=== PATIENT | female | born 1960 | race Caucasian/White ===

== ENCOUNTER 2023-06-10 10:24 | Outpatient (OUT) | payer OTHER, SELFPAY ==
--- NOTE | 2023-06-10 10:30 | CA_ITS ---
[facility] Test Date: 2023-06-20 Pat Name: AMBER JAUREGUI Department: Room: - Gender: Female Receiving [employer] C[employer]ian: : 1960 Requested By: THOMAS PIÑA Order Number: [id number] Reading MD: AFSHAN BARNES Interpretive Statements Predominant rhythm is sinus with average rate of 82 bpm Tachycardia (17% burden) - max rate of 191 bpm (PSVT) - 17 episodes of PSVT w/ fastest rate of 191 bpm and longest duration of 17 beats - longest episode of 3h 1min 4sec with rates between 112-141 bpm Bradycardia - min rate of 37 bpm - longest episode of 44min 55sec with rates between 50-57 bpm Ventricular ectopy - 17,865 total, 5% burden - 142 couplets - 17,717 PVC - 1 episode of bigeminy NSVT - 2 episodes of 3 beat VT Patient triggered events: 2 - not associated with symptoms - associated with sinus tachycardia, PVC, PAC with rates of 144 and 131 bpm Impression: Predominant rhythm is sinus with average rate of 82 bpm Fastest rate of 191 bpm (PSVT) and slowest rate of 37 bpm 17% tachycardia burden overall 17,717 PVC, 142 couplets, 1 bigeminy 2 episodes of 3 beat VT No atrial fibrillation No pauses or blocks Electronically Signed On 06-21-2023 7:11:07 EDT by AFSHAN BARNES
== END 2023-06-10 10:25 | disposition home or self-care (01) ==
LOC: CARD 10:25
PROVIDERS: PCP Family Medicine; Visit Provider Family Medicine
DX: R00.2 Palpitations (principal); R55 Syncope and collapse
CPT/HCPCS: 93242

== ENCOUNTER 2023-08-19 11:24 | Outpatient (OUT) | payer OTHER, SELFPAY ==
[2023-08-19 11:45] LABS: Basophils Absolute Auto 0.1 10^3/uL (0.0-0.1); Basophils Percent Auto 0.7 % (0.2-2.0); Eosinophils Absolute Auto 0.1 10^3/uL (0.0-0.7); Eosinophils Percent Auto 1.8 % (0.9-7.0); Hematocrit 40.2 % (36.0-48.0); Hemoglobin 13.2 g/dL (12.0-16.0); Immature Granulocytes Abs Auto 0.01 10^3/uL (0.00-0.03); Immature Granulocytes Pct Auto 0.1 % (0.0-0.5); Lymphocytes Absolute Auto 1.8 10^3/uL (1.2-3.8); Lymphocytes Percent Auto 26.3 % (20.5-60.0); Mean Corpuscular HGB Conc 32.8 g/dL (29.9-35.2); Mean Corpuscular Volume 97.3 fL (81.0-99.0); Mean Platelet Volume 11.2 fL (9.5-13.5); Monocytes Absolute Auto 0.6 10^3/uL (0.3-0.8); Monocytes Percent Auto 9.2 % (1.7-12.0); Neutrophils Absolute Auto 4.2 10^3/uL (1.4-6.5); Neutrophils Percent Auto 61.9 % (43.0-75.0); Platelet Count 285 10^3/uL (150-450); Red Blood Count 4.13 10^6/uL (4.20-5.40); Red Cell Distribution Width 14.1 % (11.0-15.0); White Blood Count 6.7 10^3/uL (4.0-11.0)
[2023-08-19 13:04] LABS: Alanine Aminotransferase 31 U/L (14-59); Albumin Level 3.7 g/dL (3.4-5.0); Alkaline Phosphatase 115 U/L (46-116); Anion Gap 14.1; Aspartate Amino Transferase 18 U/L (15-37); BUN Creatinine Ratio 19.4; Bilirubin Total 0.8 mg/dL (0.2-1.0); Calcium 8.9 mg/dL (8.5-10.1); Carbon Dioxide 25.4 mmol/L (21.0-32.0); Chloride 106 mmol/L (98-107); Estimated GFR (African America >60 (>=60); Estimated GFR (Non-African Ame >60 (>=60); Globulin 3.6 g/dL; Glucose 101 mg/dL (74-106); Potassium 4.5 mmol/L (3.5-5.1); Sodium 141 mmol/L (136-145); Total Protein 7.3 g/dL (6.4-8.2)
== END 2023-08-19 11:25 | disposition home or self-care (01) ==
PROVIDERS: PCP Family Medicine; Visit Provider Internal Medicine Interventional Cardiology
DX: I49.3 Ventricular premature depolarization (principal)
CPT/HCPCS: 36415; 80053; 85025

== ENCOUNTER 2023-09-23 07:59 | Outpatient (OUT) | payer OTHER, SELFPAY ==
--- NOTE | 2023-09-23 08:00 | CA_ITS ---
Patient Name: AMBER JAUREGUI MR#: [id number] : 1960 Exam Date: 09/23/2023 Ordering Doctor: DR SHY ACEVES M.D. ECHOCARDIOGRAM REPORT PROCEDURE: CA ECHO DOPPLER COMPLETE INDICATIONS: Palpitations COMPARISON: None. DESCRIPTION: COMPLETE ECHOCARDIOGRAM Real-time transthoracic echocardiography with 2D, M-mode, spectral and color flow Doppler performed. QUALITY: Technical quality was good. LEFT VENTRICLE: Normal chamber size. Borderline left ventricular hypertrophy. LV EF: Global left ventricular systolic function is normal; visually estimated ejection fraction is 55 to 60%. No obvious wall motion abnormalities. DIASTOLIC: Normal diastolic function. ATRIAL SEPTUM: Visually appears intact. LEFT ATRIUM: Normal chamber size. RIGHT ATRIUM: Normal chamber size. RIGHT VENTRICLE: Normal chamber size. Normal right ventricular systolic function. TRICUSPID VALVE: Normal mobility and thickness. No stenosis with mild regurgitation. Doppler studies reveal mildly (35-45) elevated right sided pressures. RVSP 42 mmHg MITRAL VALVE: Normal mobility and thickness. No evidence of mitral valve stenosis. There is no mitral annular calcification. Trivial mitral regurgitation. AORTIC VALVE: Normal trileaflet appearance. No visible sclerosis. Normal leaflet mobility. No evidence of aortic valve stenosis. No aortic regurgitation. AORTIC ROOT: Normal diameter and appearance. Ascending aorta is normal in size. PULMONIC VALVE: Normal thickness and mobility. No stenosis. Trivial regurgitation. PERICARDIUM: Anterior free space; trivial effusion versus fat pad. IVC: IVC is dilated (2.2 cm) with no collapse. CONCLUSION: 1. Global left ventricular systolic function is normal; visually estimated ejection fraction is 55 to 60% 2. Normal right ventricular size and systolic function 3. Borderline left ventricular hypertrophy 4. Normal diastolic function 5. Mild tricuspid regurgitation 6. Mildly elevated right ventricular systolic pressure; RVSP 42 mmHg 7. Anterior free space; trivial effusion versus fat pad Adult Echocardiography Procedure Report Left Ventricle LVEDD (3.7 - 5.6 cm): 4.48 cm LVESD (2.2 - 4.0 cm): 2.98 cm LVIVS thickness (0.6 - 1.2 cm): 1.11 cm LVPW thickness (0.5 - 1.0 cm): 1.01 cm e': 0.07 m/s E - e': 10.71 LVOT Max Gradient: 2.87 mm[Hg] LVOT Area (cm2): 0.85 m/s Peak Velocity (LVOT): 0.85 m/s Mean Velocity (LVOT): 0.59 m/s LVOT Diameter 2.04 cm Left Atrium LA Volume Index (2D A2C): 32.44 ml/m2 Left Atrium Systolic Dimension: 3.18 cm Mitral Valve MV E to A Ratio: 0.75 Mitral Valve A-Wave Peak Velocity: 0.95 m/s Mitral Valve E-Wave Peak Velocity: 0.71 m/s Right Ventricle Aorta AO Root Diam: 3.43 cm Ascending Ao Diam: 2.98 cm Aortic Valve AoV Area (Peak Michael): 2.27 cm2, 2.27 cm2 AoV Area (VTI): 2.33 cm2, 2.33 cm2 Peak Velocity(Antegrade Flow): 1.21 m/s Peak Gradient(Antegrade Flow): 5.90 mm[Hg] Mean Velocity(Antegrade Flow): 0.85 m/s Mean Gradient(Antegrade Flow): 3.19 mm[Hg] Velocity Time Integral: 29.01 cm Tricuspid Valve Peak Velocity (Regurgitant Flow): 2.59 m/s Pulmonic Valve Mean Gradient: 2.45 mm[Hg] Mean Velocity: 0.72 m/s Peak Velocity: 1.05 m/s, 0.99 m/s Peak Gradient: 4.38 mm[Hg], 3.89 mm[Hg] Right Atrium Right Atrium Systolic Pressure: 36.48 ml, 36.48 ml Dictated by: Shy Aceves M.D. on 09/23/2023 at 15:37 Approved by: Shy Aceves M.D. on 09/23/2023 at 15:42
--- OUTSIDE RECORDS SUMMARY | 2023-09-23 08:03 | XMS_ITS ---
Patient Summarization (C-CDA 2.1 CCD) Created on: September 23, 2023 RATNA BAZAN : 1960 Sex: Female Author Organization Sample organization Care Team Providers Care Specialist Icu Name Role Phone Yvette Velez Attending Provider [phone] Hiral Pearl Unavailable NO FAMILY, PHYSICIAN Primary Care Provider Unava ilCIERRA Ly Attending Provider [phone] Hiral Pearl Attending Unavailable Hiral Pearl Admitting Unavailable NO FAMILY, PHYSICIAN Primary Care Unavailable HEMEYER ., DR GUZMAN Primary Care Unavailable HEMEYER ., DR GUZMAN Admitting Unavailable HEMEYER ., DR GUZMAN Attending Unavailable HEMEYER ., DR GUZMAN Consulting Unavailable ZIEBER, DR TIGRE Andrade Consulting Unavailable HEMEYER ., DR GUZMAN Admitting Unavailable HEMEYER ., DR GUZMAN Attending Unavailable HEMEYER ., DR GUZMAN Consulting Unavailable HEMEYER ., DR GUZMAN Primary Care Unavailable THOMAS PIÑA Attending Unavailable THOMAS PIÑA Attending Unavailable SHY SANDHU Attending Unavailable Unavailable Unavailable Unavailable Allergies Allergy Classification Reported Allergen(s) Allergy Type Date of Onset Reaction(s) Facility (2 sources) Acetaminophen / HYDROcodone; Translations: [Vicodin] Drug Allergy shortness of breath [facility] (1 source) Acetaminophen / oxyCODONE Drug Allergy shortness of breath [facility] Other (1 source) Sulf-10 Drug allergy rash difficult breathing [facility] [employer] Other (2 sources) Darvocet-N 100; Translations: [Darvocet-N 100] Drug allergy 01-29-20 13 shortness of breath [facility] (1 source) Acetaminophen / oxyCODONE Drug Allergy 01-29-20 13 [facility] (1 source) bee venom Drug allergy (disorder) 05-08-19 18 [facility] (2 sources) Codeine; Translations: [CODEINE] Drug Allergy 02-02-20 16 [facility] (1 source) HYDROcodone Drug Allergy 11-29-19 17 [facility] (1 source) iodoform Drug Allergy 01-29-20 15 [facility] (2 sources) metFORMIN; Translations: [METFORMIN] Drug Allergy 08-21-19 23 [facility] (1 source) Sulfonamides (Antibiotic) Drug allergy (disorder) 01-29-20 13 [facility] (1 source) traMADol Drug Allergy 09-30-19 20 [facility] (1 source) Acetaminophen / HYDROcodone; Translations: [HYDROCODONE-ACET AMINOPHEN] Drug Allergy 08-21-19 [facility] Repository (1 source) Acetaminophen / oxyCODONE; Translations: [OXYCODONE-ACETAM INOPHEN] Drug Allergy 08-21-19 [facility] (1 source) Propoxyphene; Translations: [PROPOXYPHENE] Drug Allergy 08-21-19 [facility] (1 source) Sulfonamides (Antibiotic); Translations: [SULFA (SULFONAMIDE ANTIBIOTICS)] Propensity to adverse reactions to drug (disorder) 08-21-19 [facility] (1 source) BEE VENOM PROTEIN (HONEY BEE); Translations: [BEE VENOM PROTEIN (HONEY BEE)] Propensity to adverse reactions to drug (disorder) 08-21-19 [facility] Encounters Encounter Date Encounter Type Care Provider Facility Start: 08-19-2023 End: 08-19-2023 ambulatory [facility] Start: 08-07-2023 End: 08-07-2023 ambulatory THOMAS PIÑA Not Available Start: 05-28-2023 End: 05-28-2023 ambulatory THOMAS PIÑA Not Available Start: 07-16-2022 End: 07-17-[address] THOMAS PIÑA . Facility:[facility] Start: 05-08-2022 End: 05-09-[address] THOMAS PIÑA . Facility:[facility] Start: 01-12-2022 End: 01-12-2022 Patient encounter procedure PHYSICIAN NO FAMILY [facility] Start: 01-12-2022 End: 01-12-2022 ambulatory PHYSICIAN [facility] Work Phone: Start: 01-12-2022 Office outpatient vi sit 15 minutes Hiral Ryanne [facility] Start: 04-02-2020 End: 04-02-2020 Patient encounter procedure Yvette Velez [facility] Goals Date Patient Goal Desired Activity /State Medications Current Medications Medication Drug Class(es) Dates Sig (Normalized) Sig (Original) amLODIPine Benzoate (1 source) amLODIPine Benzoate Active atorvastatin (1 source) HMG-CoA Reductase Inhibitor Atorvastatin Calcium Active liothyronine (1 source) l-Triiodothyronine Liothyronine Sodium Active losartan potassium 100 mg oral tablet (1 source) Angiotensin 2 Receptor Jack take 1 tablet by mouth every twenty-four hours Losartan Potassium 100 MG 1 tablet Orally Once a day for 30 day(s) Active metoprolol tartrate 50 mg oral tablet (1 source) beta-Adrenergic Jack take 1 tablet by mouth every twelve hours Metoprolol Tartrate 50 MG 1 tablet Orally Twice a day for 30 day(s) Active Post-OP Shoe/Soft Top Women - (1 source) Start: 01-12-2022 Post-OP Shoe/Soft Top Women - as directed diagnosis: contusion right foot Dec, Active Payers Date Payer Category Payer Self-pay [id number] 2022 Unknown [id number] 2.16. [id number] 1960 Unknown [id number] 2.16.84 [id number] 1960 Unknown [id number] 2.16.84 [id number] 1960 Unknown [id number] 2.16.84 [id number] 1960 Unknown [id number] 2.16.84 [id number] 1960 Unknown [id number] Unknown [id number] 2.16.8 [id number] Problems Problem Classification Problem Date Documented Da te Episodic/Chronic Cardiac dysrhythmias (2 sources) Palpitations; Translations: [Palpitations] Onset: 08-19-2023 Episodic Malaise and fatigue (1 source) Chronic fatigue, unspecified; Translations: [CHRONIC FATIGUE UNSPECIFIED] Onset: 05-12-2022 Chronic Other connective tissue disease (1 source) Pain in right foot Episodic Other screening for suspected conditions (not mental disorders or infectious disease) (4 sources) Encounter for screening mammogram for malignant neoplasm of breast; Translations: [ENC SCR MAMMO MALIG NEOPLASM BREAST] Onset: 07-16-2022 Episodic Residual codes; unclassified (1 source) Family history of malignant neoplasm of breast; Translations: [FAMILY HX MALIG NEOPLASM OF BREAST] Onset: 07-19-2022 Episodic Superficial injury; contusion (1 source) Contusion of right foot, initial encounter Episodic Thyroid disorders (4 sources) Sick-euthyroid syndrome; Translations: [SICK-EUTHYROID SYNDROME] Onset: 05-08-2022 Episodic Unclassified (1 source) Pain in right foot; Translations: [Pain in right foot] Onset: 01-12-2022 Procedures Date Procedure Procedure Detail Performing Clinician Start: 01-12-2022 X-ray of right foot PHY SICIAN NO FAMILY Start: 04-02-2020 X-ray of left elbow, three or more views Yvette Velez Results Test Name Value Interpretation Reference Range Facil ity Office Visiton 08-19-2023 Follow-up visit [id number] Ratna Bazan 1960 F Date Provider Department Center 08/19/2023 Chuy-SHY SANDHU Family History Problem Relation Age of Onset Atrial fibrillation Father Other Father Heart failure Father Other Father Family Status - Relation Status Age at Father Level of Service:22455 MA OFFICE/OUTPATIENT NEW MODERATE MDM 45 MINUTES Normal [facility] Orders Onlyon 08-19-2023 Orders Only [id number] Ratna Bazan 1960 F Date Provider Department Center 08/19/2023 FabioDAR SMITH [facility] Family History Problem Relation Age of Onset Atrial fibrillation Father Other Father Heart failure Father Other Father Family Status - Relation Status Age at Father Normal [facility] MG MAMM SCREEN 3D LUCIEN CADon 07-16-2022 MG MAMM SCREEN 3D LUCIEN CAD Patient: RATNA BAZAN. Exam Date: 07/16/2022 : 1960 Gender:F Ordering : DR THOMAS PIÑA . Admission #: [id number] Family : Order #: [id number] CLICK HERE TO VIEW EXAM RADIOLOGY REPORT PROCEDURE: MAMMOGRAM SCREENING 3D BILATERAL CAD COMPARISON: MG MAMM SCREEN 3D LUCIEN CAD, 06/14/2021. MG MAMM SCREEN 3D LUCIEN CAD, 03/24/2019. MG MAMM SCREEN 3D LUCIEN CAD, 12/18/2017. DIGITIZED_MAMMO, 07/15/2002. INDICATIONS: Screening mammography Calculator Name NCI Breast Cancer Risk Assessment Tool 5 Year Breast Cancer Risk 1.70% Lifetime Breast Cancer Risk 7.70% Personal Breast Cancer No Personal Ovarian Cancer No Treatments None Family Cancers Grandmother-maternal with breast cancer at age 50. LOCATION: [facility] BREAST COMPOSITION: Scattered areas fibroglandular density. FINDINGS: DIAGNOSTIC CATEGORY 1--NEGATIVE. RIGHT BREAST: No significant suspicious finding. No significant change has occurred. LEFT BREAST: No significant suspicious finding. No significant change has occurred. RECOMMENDATIONS: ROUTINE MAMMOGRAM AND CLINICAL EVALUATION IN 12 MONTHS. PLEASE NOTE: A NORMAL MAMMOGRAM DOES NOT EXCLUDE THE POSSIBILITY OF BREAST CANCER. A CLINICALLY SUSPICIOUS PALPABLE LUMP SHOULD BE BIOPSIED. Dictated by: Tigre Muñoz M.D. on 07/16/2022 at 12:51 Approved by: Tigre Muñoz M.D. on 07/16/2022 at 12:58 Normal [facility] REVERSE T3on 05-13-2022 Reverse T3, Serum 15.9 ng/dL Normal 9.2-24.1 [facility] Comment on above: Result Comment: This test was developed and its performance characteristics determined by [facility]. It has not been cleared or approved by the Food and Drug Administration. Performed By: #### R [id number] #### [facility] [address] [address] [address] Eva Hurt T3, TOTAL (TRIIODOTHYRONINE) on 05-09-2022 T3, TOTAL 139 ng/dL Normal 71-180 [facility] Comment on above: Performed By: #### [id number] #### [facility] [address] [place] [address] Dr. Eav Hurt FREE T3on 05-08-2022 FREE T3 3.14 pg/mlL Normal 2.18-3.98 [facility] Comment on above: Performed By: #### TSH, FT3 #### [facility] [address] [place] [address] Dr. Eva Hurt FREE T4on 05-08-2022 Free T4 [Mass/Vol] 0.97 ng/dL Normal 0.76-1.46 [facility] Comment on above: Performed By: #### FT4 #### [facility] [address] [place] [address] Dr. Eva Hurt TSHon 05-08-2022 TSH 1.881 uIU/mL Normal 0.358-3.740 [facility] Comment on above: Performed By: #### TSH, FT3 #### [facility] [address] [place] [address] Dr. Eva Hurt XR foot RT min 3V*on 022 XR foot RT min 3V* [facility] [place] [address] XRay Report Signed Patient: Ratna Bazan MR#: [id number] : 1960 Acct:[id number] Age/Sex: 61 / F ADM Date: 01/12/22 Loc: XDUCLY Room: Type: [facility] Attending Dr: Hiral NORTON Copies to: CIERRA Buck Ordering Provider: CIERRA Buck Date of Service: 01/12/22 XR/XR foot RT min 3V*: RIGHT FOOT PAIN RIGHT FOOT - 3 views CLINICAL HISTORY: Pain and bruising after injury today. COMPARISON: None FINDINGS: No focal soft tissue abnormality. No acute bony process is seen. XR/XR foot RT min 3V* IMPRESSION: NO ACUTE BONY PROCESS. Impression dictated by: Fabian De Jr., D.O.01/12/2022 5:26 PM Dictation Location: [place] [address] Transcribed By: [facility] 01/12/22 172 Dictated By: Fabian De Jr, DO 01/12/22 172 Signed By: 01/12/22 172 Normal [facility] XR foot RT min 3V* [facility] [employer] Other XR foot RT min 3V* [facility] [employer] Other XR foot RT min 3V* [address] [place] [address] [facility] Other XR foot RT min 3V* [place] [address] [facility] Other XR foot RT min 3V* XRay Report [facility] Other XR foot RT min 3V* Signed [facility] Other XR foot RT min 3V* Patient: Ratna Bazan MR#: [id number] [facility] Other XR foot RT min 3V* 4698 [facility] Other XR foot RT min 3V* : 1960 Acct:[id number] [facility] Other XR foot RT min 3V* Age/Sex: 61 / F ADM Date: 01/12/22 [facility] Other XR foot RT min 3V* Loc: XDUCLY Room: Type: [facility] Other XR foot RT min 3V* Attending Dr: Hiral NORTON [facility] Other XR foot RT min 3V* Copies to: CIERRA Buck [facility] Other XR foot RT min 3V* Ordering Provider: CIERRA Buck [facility] Other XR foot RT min 3V* Date of Service: 01/12/22 [facility] Other XR foot RT min 3V* XR/XR foot RT min 3V*: RIGHT FOOT PAIN [facility] Other XR foot RT min 3V* RIGHT FOOT - 3 views [facility] Other XR foot RT min 3V* CLINICAL HISTORY: Pain and bruising after injury today. [facility] Other XR foot RT min 3V* COMPARISON: None [facility] Other XR foot RT min 3V* FINDINGS: [facility] Other XR foot RT min 3V* No focal soft tissue abnormality. No acute bony process is seen. [facility] Other XR foot RT min 3V* XR/XR foot RT min 3V* [facility] Other XR foot RT min 3V* IMPRESSION: [facility] Other XR foot RT min 3V* NO ACUTE BONY PROCESS. [facility] [employer] Other XR foot RT min 3V* Impression dictated by: Fabian De Jr., D.ORhona01/12/2022 5:26 PM [facility] Other XR foot RT min 3V* Dictation Location: [facility]- [facility] Other XR foot RT min 3V* Transcribed By: ARSENIO 01/12/22 [facility] Other XR foot RT min 3V* Dictated By: Fabian De Jr, DO 01/12/22 172 [facility] Other XR foot RT min 3V* Signed By: [facility] Other XR foot RT min 3V* 01/12/22 1726 [facility] Other Free T3on 05-18-2021 FT3 3.91 pg/mL Normal 2.00-4.40 [facility] [employer] Comment on above: Performed By: #### TSH, FT4, FT3 #### [facility] [address], [place] [id number] Free T4on 05-18-2021 Free T4 [Mass/Vol] 0.94 ng/dL Normal 0.80-1.80 [facility] [employer] Comment on above: Performed By: #### TSH, FT4, FT3 #### [facility] [address], [place] [id number] Q - T3 TOTALon 05-18-2021 T3, TOTAL 133 ng/dL Normal 76-181 [facility] [employer] Comment on above: Order Comment: [facility] Testing performed at: [facility], [employer] [facility], [address] [place] [address], [address] [place] [address], [id number], [employer] Operator: Bill Holman MD [facility] Date/Time: [facility] Results Received Date/Time: [facility] Reported Date/Time: Performed By: #### 9 0963, 859X #### [facility] [address] [place] [address] Q - T3,REVERSE,LC/MS/MSon T3 REVERSE, LC/MS/MS 19 ng/dL Normal 8-25 [facility] [employer] Comment on above: Order Comment: [facility] Testing performed at: [facility], [employer], [address] [address], [place], [place], , [employer] Operator: Butch Brasher M.D.,PhD [facility] Date/Time: [facility] Results Received Date/Time: [facility] Reported Date/Time: Result Comment: This test was developed and its analytical performance characteristics have been determined by [facility] [place], [place]. It has not been cleared or approved by the U.S. Food and Drug Administration. This assay has been validated pursuant to the CLIA regulations and is used for clinical purposes. Performed By: #### 9 0963, 859X #### [facility] [address] [place] [address] TSHon 05-18-2021 TSH 2.340 uIU/mL Normal 0.400-4.500 [facility] [employer] Comment on above: Performed By: #### TSH, FT4, FT3 #### [facility] [address] [place], [place] [id number] Social History Date Type Detail Facility Start: 1960 Sex Assigned At Female F [facility] Tobacco smoking status NHIS Unknown if ever smoked [facility] Sex Assigned At Sex Assigned At Bir th [facility] Other Vital Signs Date Time Vital Sign Value Performing Clinician Facility 01-12-2022 17:40-0400 Body height 167.64 cm Hiral Salasmond Other [facility] Other 01-12-2022 17:40-0400 Body temperature 99.1 [degF] Hiral Salasmond Other [facility] Other 01-12-2022 17:40-0400 Diastolic blood pressure 81 mm[Hg] Hiral Ryanne Other [facility] Other 01-12-2022 17:40-0400 Respiratory rate 18 /min Hiral Salasmond Other [facility] Other 01-12-2022 17:40-0400 SaO2% (BldA) [Mass fraction] 100 % Hiral Ryanne Other [facility] Other 01-12-2022 17:40-0400 Systolic blood pressure 168 mm[Hg] Hiral Pearl Other [facility] Other Progress note 08-19-2023 Note Date & Type Note Facility 08-19-2023 Note [facility] Cardiology Clinic Note Chief Complaint: New patient here to re-establish care. Ref from Dr. Piña for palpitations. She wore Holter monitor in May 2023. Says she's had MISHRA since she had Covid-19 in 2020. Gets centralized chest pain. Says her HR is usually in the 90's. HPI: Ratna Bazan is a 63 y.o. female with a known history of supraventricular tachycardia, chronic kidney disease, peripheral vascular insufficiency morbid obesity [facility] establish care 2020: 59 yo female presents to clinic as new patient for palpitations, feeling like her heart is racing and pounding for a couple of minutes to hours with increased pressure/flushed into her head and pressure down her Lt arm. Admits shortness of breath with exertion, states she would be out of breath and would have to stop and catch her breath. 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 Pt states that during the 3 days that she wore the Holter monitor the racing pounding of her heart symptom that she has and was her main complaint did not happen during those 3 days. She states this has decreased over the last month or 2 only happening 3-4 times a month. She has been on metoprolol for years, hypertension. PMH: HTN, obesity PSH: no pertinent cardiac hx FMH: Father CAD/CABG in 60 s- HTN Dm, Mother DM Sister- stroke in 50's Social never a smoker, denied ETOH or illicit drugs allergies- multiple- Sulfa allergy- she can't remember reaction but was told by the hospital never to take sulfa again. UPDATE 08/19/2023 The patient has been experiencing at least 6 or 7 episodes of racing heartbeats at rest weekly. These are associated with chest pressure that resolves once the heart rate improves. She denies alcohol use, she drinks 1 or 2 cups of coffee daily. No other caffeinated beverages. Pertinently, she was diagnosed with SVT in her 50s. She has never undergone an EP study. She states that she had a sleep study and does not have sleep apnea Cardiology ROS: Review of Systems Cardiovascular: Positive for chest pain, dyspnea on exertion, leg swelling and palpitations. All other systems reviewed and are negative. Past Medical History She has no past medical history on file. Surgical History She has no past surgical history on file. Social History She has no history on file for tobacco use, alcohol use, and drug use. Family History No family history on file. Allergies Patient has no allergy information on record. Medications No current outpatient medications on file. Last Recorded Vitals BP (!) 156/96 (BP Location: Right wrist, Patient Position: Sitting) Pulse 70 Ht 1.676 m (5' 6 ) SpO2 96% Physical Examination: GENERAL: alert and oriented x3, well developed, in no acute distress. HEAD: atraumatic, normocephalic. EYES: MARY KAY, EOMI. NECK: trachea midline, no JVD present, no carotid bruits present. CARDIAC: S1, S2 present. RRR. No murmur, rubs, or gallops. RESPIRATORY: CTAB, no increased effort of breathing, no rales, rhonchi, or wheezing. ABDOMEN: soft, nontender, nondistended. EXTREMITIES: no lower extremity edema, peripheral pulses are 2+ bilaterally. No rash/skin discoloration present. NEURO: strength/sensation equal and symmetric in bilateral upper and lower extremities. PSYCH: appropriate mood, affect, and judgement. EKG today sinus rhythm with occasional PVCs, normal axis, no acute ST or T wave changes. 05/28/2017 CT chest 1. mildly enlarged heart 2. No PE 3. No thoracic AA or dissection Holter monitor 04/11/20 Predominant rhythm sinus with average rate of 87 bpm Tachycardia - max rate 151 bpm Bradycardia min rate 54bpm Ventricular ectopy- 18,884 (5%) PVC's - 228 bigeminy - 21 trigeminy Echocardiogram 06/16/2020 Global left ventricular systolic function is normal; ejection fraction is 55 to 60%. Mild concentric left ventricular hypertrophy. The right ventricle is normal in size and systolic function. Mild tricuspid regurgitation. Anterior free space; trivial effusion versus fat pad. Treadmill nuclear stress test 06/15/2020 Normal nuclear medicine myocardial perfusion scan Holter monitor 06/2023: Impression: Predominant rhythm is sinus with an average heart rate of 82 bpm Fastest heart rate of 191 bpm and paroxysmal supraventricular tachycardia in the/20 to 37 bpm 70% tachycardia overall Frequent ventricular ectopy 2 episodes of beats of nonsustained V. tach No atrial fibrillation, no pauses and no blocks 12 lead EK08/19/2023 Normal sinus rhythm, normal EKG Assessment: 1. Palpitations 2. PSVT and short (3-beat) runs of NSVT 3. Morbid obesity 4. Peripheral venous insufficiency 5. Chronic kidney disease stage 2 6. Hyothyroidism Plan: Will obtain routine labs; CBC, CMP I will increase her beta-jack to help with her palpitations; Lopressor p.o. 100 mg twice daily We will have her see (more content not included)... [facility] Evaluation note 01-12-2022 Note Date & Type Note Facility 01-12-2022 Evaluation note Encounter Date Diagnosis Assessment Notes Dec, Right foot pain (ICD-10 - M79.671) Dec, Contusion of right foot, initial encounter (ICD-10 - S90.31XA) Drink plenty fluids, get plenty of rest. Continue home medications as prescribed. You may take ibuprofen, 600 to 800 mg with food up to 3 times a day for pain and swelling. You may take Tylenol for pain as well. Ice and elevate your foot 2-3 times a day. Follow-up with your family physician if no improvement in 4 to 5 days. Dec, Other Contusion material was printed [facility] Other Clinical Note 12-11-2021 Note Date & Type Note Facility 12-11-2021 Note PROCEDURE: Without IV contrast, axial helical 5 mm slice thickness images of the chest performed. FINDINGS: Comparison made with prior examination one year earlier, November 03, 2020. No suspicious lung nodule, mass, or consolidation. Stable low volume mediastinal lymph nodes, right hilar calcified lymph node aggregate (1.5 x 1.5 cm). No pleural or pericardial effusion. IMPRESSION: Stable intra-thoracic findings consistent with prior granulomatous disease Report reported and signed by Fabian Devi on 12/13/2021 0628 [facility] [employer] [employer] Evaluation note Note Date & Type Note Facility Evaluation note [facility]: History general Narrative - Reported Note Date & Type Note Facility History general Narrative - Reported Type Medical History Hypertension Medical History hypercholesterolemia Medical History Hypothyroidism Surgical History shoulder surgery 3 Surgical History knee surgery 2 Surgical History C section 2 Surgical History laparoscopy 6 Surgical History wisdom teeth Surgical History appendectomy Surgical History hysterectomy Hospitalization History see above [facility] Other Assessments No Assessments Information Available Summary Purpose Family History No Family History Records FoundNo Family History Records FoundNo Family History Records FoundNo Family History Records FoundNo Family History Records Found Advance Directives No Advanced Directives Records Found Advance Directive Response Recorded Date/ Time Advance Directives No April 04, 2020 11:28am Additional Source Comments INFORMATION SOURCE (unrecogn ized section and content) DATE CREATED AUTHOR 12/18/2021 [facility] dical Specialist DATE CREATED AUTHOR AUTHOR'S ORGANIZ ATION 01/26/2022 [facility] DATE CREATED AUTHOR AUTHOR'S ORGANIZ ATION 07/20/2022 [facility] pital DATE CREATED AUTHOR AUTHOR'S ORGANIZ ATION 08/09/2023 [facility] dical Specialists EPIC DATE CREATED AUTHOR AUTHOR'S ORGANIZ ATION 08/23/2023 [facility] REASON FOR VISIT (unrecogniz ed section and content) DROPPED A TRUNK ON RIGHT MEGAN T Care Teams (unrecognized sec tion and content) Team Status: Inactive Member Role Status Dates PHYSICIAN NO FAMILY Primary Care Provider Active RAJAN DavidsonC Attending Provider Active Team Status: Active Member Role Status Dates PHYSICIAN NO FAMILY Primary Care Provider Active Goals (unrecognized section and content) Goals may be documented in a n alternate section FOR RECORDS PERTAINING TO PATIENTS WHO ARE OR HAVE BEEN ENROLLED IN A CHEMICAL DEPENDENCY/SUBSTANCEABUSE PROGRAM, SOME INFORMATION MAY BE OMITTED. This clinical summary was aggregated from multiple sources. Caution should be exercised in using it in the provision of clinical care. This summary normalizes information from multiple sources, and as a consequence, information in this document may materially change the coding, format and clinical context of patient data. In addition, data may be omitted in some cases. CLINICAL DECISIONS SHOULD BE BASED ON THE PRIMARY CLINICAL RECORDS. [employer] provides no warranty or guarantee of the accuracy or completeness of information in this document.
== END 2023-09-23 08:00 | disposition home or self-care (01) ==
LOC: CARD 07:59
PROVIDERS: PCP Family Medicine; Visit Provider Internal Medicine Interventional Cardiology
DX: I49.3 Ventricular premature depolarization (principal)
CPT/HCPCS: 93306

== ENCOUNTER 2024-01-01 10:18 | Outpatient (OUT) | payer OTHER, SELFPAY ==
--- NOTE | 2024-01-01 | XR_ITS ---
The [address] [address] Patient Name: AMBER JAUREGUI MRN: [id number] date: 1960 Sex: F Assigned Patient Location: [facility] Current Patient Location: Accession/Order Number: [id number] Exam Date: 01/01/2024 10:21 Report Date: 01/03/2024 07:16 At the request of: SHAUN ANSARI Procedure: XR foot RT min 3V PROCEDURE: XR foot RT min 3V COMPARISON: None. HISTORY: RIGHT FOOT PAIN FINDINGS: BONES:No acute fracture or dislocation. Moderate enthesopathic spurring of the calcaneus at the Achilles and plantar insertions SOFT TISSUES:Negative. No visible soft tissue swelling. EFFUSION:None visible. OTHER: Negative. XR/XR foot RT min 3V IMPRESSION: Mild degenerative changes Electronically authenticated by: JOCELIN GALLAGHER Date: 01/03/2024 07:16
--- OUTSIDE RECORDS SUMMARY | 2024-01-01 10:20 | XMS_ITS | CCD ---
Author Organization [facility] Care Team Providers Care Facility Service Manager Name Role Phone Yvette Velez Attending Provider Hiral Pearl Unavailable NO FAMILY, PHYSICIAN Primary Care Provider Unava CIERRA Burrell Attending Provider Hiral Pearl Attending Unavailable Hiral Pearl Admitting [...] HEMEYER ., DR GUZMAN Primary Care Unavailable CODY MEADOWS Attending Unavailable SHY SANDHU Attending Unavailable THOMAS PIÑA Attending Unavailable THOMAS PIÑA Attending Unavailable THOMAS PIÑA Attending Unavailable Unavailable Unavailable Unavailable Allergies Allergy Classification Reported Allergen(s) Allergy Type Date of Onset Reaction(s) Facility (2 sources) Acetaminophen / HYDROcodone; Translations: [Vicodin] Drug Allergy shortness of breath [facility] Repository (1 source) Acetaminophen / oxyCODONE Drug Allergy shortness of breath [employer] Other (1 source) Sulf-10 Drug allergy rash difficult breathing [employer] Other (2 sources) Darvocet-N 100; Translations: [Darvocet-N 100] Drug allergy 01-29-20 13 shortness of breath [facility] Rep[facility] (1 source) Acetaminophen / oxyCODONE Drug Allergy 01-29-20 13 [facility] (1 source) bee venom Drug allergy (disorder) 05-08-19 18 [facility] (2 sources) Codeine; Translations: [CODEINE] Drug Allergy 02-02-20 16 [facility] Rep[facility] (1 source) HYDROcodone Drug Allergy 11-29-19 17 [facility] (1 source) iodoform Drug Allergy 01-29-20 15 [facility] Rep[facility] (2 sources) metFORMIN; Translations: [METFORMIN] Drug Allergy 08-21-19 23 [facility] Rep[facility] (1 source) Sulfonamides (Antibiotic) Drug allergy (disorder) 01-29-20 13 [facility] (1 source) traMADol Drug Allergy 09-30-19 20 [facility] (1 source) Acetaminophen / HYDROcodone; Translations: [HYDROCODONE-ACET AMINOPHEN] Drug Allergy 08-21-19 [facility] Repository (1 source) Acetaminophen / oxyCODONE; Translations: [OXYCODONE-ACETAM INOPHEN] Drug Allergy 08-21-19 [facility] Repository (1 source) Propoxyphene; Translations: [PROPOXYPHENE] Drug Allergy 08-21-19 [facility] Repository (1 source) Sulfonamides (Antibiotic); Translations: [SULFA (SULFONAMIDE ANTIBIOTICS)] Propensity to adverse reactions to drug (disorder) 08-21-19 [facility] Repository (1 source) BEE VENOM PROTEIN (HONEY BEE); Translations: [BEE VENOM PROTEIN (HONEY BEE)] Propensity to adverse reactions to drug (disorder) 08-21-19 [facility] Repository Medications Current Medications Medication Drug Class(es) Dates [...] directed diagnosis: contusion right foot Dec, Active Problems Active Problems Problem Classification Problem Date Documented Date Episodic/Chronic Cardiac dysrhythmias (2 sources) Palpitations; Translations: [...] Translations: [Pain in right foot] Onset: 01-12-2022 Unclassified (1 source) Supraventricular tachycardia, unspecified; Translations: [Supraventricular tachycardia, unspecified] Onset: 08-19-2023 Past or Other Problems Problem Classification Problem Date Documented Date Episodic/Chronic Unclassified (1 source) Supraventricular tachycardia, unspecified; Translations: [Supraventricular tachycardia, unspecified] Onset: 10-29-2023 Results Test Name Value Interpretation Reference Range Facil ity Office Visiton 10-29-2023 Follow-up visit [id number] Ratna Bazan 1960 F Date Provider Department Center 10/29/2023 [facility] Family History Problem Relation Age of Onset Atrial fibrillation Father Other Father Heart failure Father Other Father Family Status - Relation Status Age at Father Level of Service:95989 MT OFFICE/OUTPATIENT NEW MODERATE MDM 45 MINUTES Normal [facility] Office Visiton 08-19-2023 Follow-up visit [id number] Ratna Bazan 1960 F Date Provider Department Center 08/19/2023 [facility] Family History Problem Relation Age of Onset Atrial fibrillation Father Other Father Heart failure Father Other Father Family Status - Relation Status Age at Father Level of Service:12126 MT OFFICE/OUTPATIENT NEW MODERATE MDM 45 MINUTES Normal [facility] Orders Onlyon 08-19-2023 Orders Only [id number] Ratna Bazan 1960 F Date Provider Department Center 08/19/2023 8[address] [facility] Hos Family History Problem Relation Age of Onset Atrial fibrillation Father Other Father Heart failure Father Other Father Family Status - Relation Status Age at Father Normal [facility] MG MAMM SCREEN 3D LUCIEN CADon 07-16-2022 MG MAMM SCREEN 3D LUCIEN CAD Patient: RATNA BAZAN Exam Date: 07/16/2022 : 1960 Gender:F Ordering : DR HTOMAS PIÑA . Admission #: [id number] Family : Order #: [id number] CLICK HERE TO VIEW EXAM RADIOLOGY REPORT [...] breast cancer at age 49. LOCATION: [facility] BREAST COMPOSITION: Scattered areas fibroglandular density. [...] M.D. on 07/16/2022 at 12:58 Normal [facility] REVERSE T3on 05-13-2022 Reverse T3, Serum 15.9 ng/dL Normal 9.2-24.1 [facility] Comment on above: Result Comment: This test was developed and its performance characteristics determined by [facility]. It has not been cleared or approved by the Food and Drug Administration. Performed By: #### R EVRT3 #### [facility] [address] [address] [address] Eva Hurt T3, TOTAL (TRIIODOTHYRONINE) on 05-09-2022 T3, TOTAL 139 ng/dL Normal 71-180 [facility] Comment on above: Performed By: #### [id number] #### [facility] [address] [place] [address] Dr. Eva Hurt FREE T3on 05-08-2022 FREE T3 3.14 pg/mlL Normal 2.18-3.98 [facility] Comment on above: Performed By: #### TSH, FT3 #### [facility] [address] [address] [address] Eva Hurt FREE T4on 05-08-2022 Free T4 [Mass/Vol] 0.97 ng/dL Normal 0.76-1.46 [facility] Comment on above: Performed By: #### FT4 #### [facility] [address] [place] [address] Dr. Eva Hurt TSHon 05-08-2022 TSH 1.881 uIU/mL Normal 0.358-3.740 [facility] Comment on above: Performed By: #### TSH, FT3 #### [facility] [address] [place] [address] Dr. Eva Hurt XR foot RT min 3V*on 022 XR foot RT min 3V* [facility] Main [place] [address] [place] [id number] XRay Report Signed Patient: Ratna Bazan MR#: [id number] : 1960 Acct:[id number] Age/Sex: 61 / F ADM Date: 01/12/22 Loc: XDUCLY Room: Type: [facility] Attending Dr: Hiral NORTON Copies to: CIERRA [...] De Jr., D.O.01/12/2022 5:26 PM Dictation Location: [place] [address] Transcribed By: [facility] 01/12/22 172 Dictated By: Fabian De Jr, DO 01/12/22 172 Signed By: 01/12/22 172 Normal [facility] XR foot RT min 3V* [facility] [employer] Other XR foot RT min 3V* [facility] Main [facility] [employer] Other XR foot RT min 3V* [address] [place] [address] [employer] Other XR foot RT min 3V* [place] [address] [employer] Other XR foot RT min 3V* XRay Report [employer] Other XR foot RT min 3V* Signed [employer] [employer] Other XR foot RT min 3V* Patient: Ratna Bazan MR#: [id number] [facility] Other XR foot RT min 3V* 4698 [facility] Other XR foot RT min 3V* : 1960 Acct:[id number] [employer] [employer] Other XR foot RT min 3V* Age/Sex: 61 / F ADM Date: 01/12/22 [employer] [employer] Other XR foot RT min 3V* Loc: XDUCLY Room: Type: REG CLI [employer] [employer] Other XR foot RT min 3V* Attending Dr: Hiral NORTON [employer] [employer] Other XR foot RT min 3V* Copies to: CIERRA Buck [employer] [employer] Other XR foot RT min 3V* Ordering Provider: CIERRA Buck [employer] Other XR foot RT min 3V* Date of Service: 01/12/22 [employer] [employer] Other XR foot RT min 3V* XR/XR foot RT min 3V*: RIGHT FOOT PAIN [employer] [employer] Other XR foot RT min 3V* RIGHT FOOT - 3 views [employer] Other XR foot RT min 3V* CLINICAL HISTORY: Pain and bruising after injury today. [employer] Other XR foot RT min 3V* COMPARISON: None [employer] Other XR foot RT min 3V* FINDINGS: [employer] Other XR foot RT min 3V* No focal soft tissue abnormality. No acute bony process is seen. [employer] Other XR foot RT min 3V* XR/XR foot RT min 3V* [employer] Other XR foot RT min 3V* IMPRESSION: [employer] Other XR foot RT min 3V* NO ACUTE BONY PROCESS. [employer] [facility] [employer] Other XR foot RT min 3V* Impression dictated by: Fabian De Jr., D.ORhona01/12/2022 5:26 PM [employer] Other XR foot RT min 3V* Dictation Location: [facility]09 [employer] Other XR foot RT min 3V* Transcribed By: ARSENIO 01/12/22 172 [employer] Other XR foot RT min 3V* Dictated By: Fabian De Jr, 01/12/221724 [employer] [employer] Other XR foot RT min 3V* Signed By: [employer] Other XR foot RT min 3V* 01/12/221725 [employer] Other Free T3on 05-18-2021 FT3 3.91 pg/mL Normal 2.00-4.40 [facility] [employer] Comment on above: Performed By: #### TSH, FT4, FT3 #### [facility] [address], [place] [id number] Free T4on 05-18-2021 Free T4 [Mass/Vol] 0.94 ng/dL Normal 0.80-1.80 [facility] [employer] Comment on above: Performed By: #### TSH, FT4, FT3 #### [facility] [address], [place] [id number] Q - T3 TOTALon 05-18-2021 T3, TOTAL 133 ng/dL Normal 76-181 [place] [employer] Comment on above: Order Comment: [facility] Testing performed at: [facility], [address] [place] [address], [address] [place] [address], [phone], Contract Writer: Bill Holman MD [facility] Collection Date/Time: [facility] Results Received Date/Time: [facility] Reported Date/Time: Performed By: #### 9 0963, [id number] #### [facility] Default [address] [place] [address] Q - T3,REVERSE,LC/MS/MSon T3 REVERSE, LC/MS/MS 19 ng/dL Normal 8-25 [facility] [employer] Comment on above: Order Comment: [facility] Testing performed at: [facility], [employer], [address], [place], [place], , Contract Writer: Butch Brasher M.D.,PhD [facility] Collection Date/Time: [facility] Results Received Date/Time: [facility] Reported Date/Time: Result Comment: This test was developed and its analytical performance characteristics have been determined by [employer] [place], [place]. It has not been cleared or approved by the U.S. Food and Drug Administration. This assay has been validated pursuant to the CLIA regulations and is used for clinical purposes. Performed By: #### 9 0963, 859X #### [facility] Default [address] [place] [address] TSHon 05-18-2021 TSH 2.340 uIU/mL Normal 0.400-4.500 [facility] [employer] Comment on above: Performed By: #### TSH, FT4, FT3 #### [facility] [address] [place], [place] [id number] Vital Signs Date Time Vital Sign Value Performing Clinician Facility 01-12-2022 17:40-0400 Body height 167.64 cm Hiral Pearl Other [employer] [employer] Other 01-12-2022 17:40-0400 Body temperature 99.1 [degF] Hiral Pearl Other [facility] Other 01-12-2022 17:40-0400 Diastolic blood pressure 81 mm[Hg] Hiral Pearl Other [facility] Other 01-12-2022 17:40-0400 Respiratory rate 18 /min Hiral Pearl Other [facility] Other 01-12-2022 17:40-0400 SaO2% (BldA) [Mass fraction] 100 % Hiral Pearl Other [facility] Other 01-12-2022 17:40-0400 Systolic blood pressure 168 mm[Hg] Hiral Pearl Other [employer] [employer] Other Encounters Encounter Date Encounter Type Care Provider Facility Start: 12-04-2023 End: 12-04-2023 ambulatory THOMAS PIÑA Not Available Start: 10-29-2023 End: 10[facility] Start: 08-19-2023 End: 08-19-2023 ambulatory SHY [facility] Start: 08-07-2023 End: 08-07-2023 ambulatory THOMAS PIÑA Not Available Start: 05-28-2023 End: 05-28-2023 ambulatory THOMAS PIÑA Not Available Start: 07-16-2022 End: 07-17-[address] THOMAS PIÑA . Facility:[facility] Start: 05-08-2022 End: 05-09-[address] THOMAS PIÑA . Facility:[facility] Start: 01-12-2022 End: 01-12-2022 Patient encounter procedure PHYSICIAN NO [facility] Start: 01-12-2022 End: 01-12-2022 ambulatory PHYSICIAN NO [facility] Work Phone: Start: 01-12-2022 Office outpatient vi sit 15 minutes Hiral Pearl [facility] Start: 04-02-2020 End: 04-02-2020 Patient encounter procedure Yevtte Velez [facility] Procedures Date Procedure Procedure Detail Performing Clinician Start: 01-12-2022 X-ray of right foot PHY SICIAN NO FAMILY Start: 04-02-2020 X-ray of left elbow, three or more views Yvette Velez Payers Date Payer Category Payer Self-pay [id number] 2022 Unknown [id number] 2.16. [id number] 1960 Unknown [id number] 2.16.84 [id number] 1960 Unknown [id number] 2.16.84 [id number] 1960 Unknown [id number] 2.16.84 [id number] 1960 Unknown [id number] 2.16.84 [id number] 1960 Unknown [id number] 2.16.84 [id number] 1960 Unknown [id number] Unknown [id number] Unknown [id number] 2.16.8 [id number] Social History Date Type Detail Facility Tobacco smoking status NHIS Unknown if ever smoked [facility] Start: 1960 Sex Assigned At Female F [facility] Sex Assigned At Sex Assigned At Bir [employer] [facility] Other Goals Date Patient Goal Desired Activity /State Progress note 10-29-2023 Note Date & Type Note Facility 10-29-2023 Note [place] [facility] Consult [place] [facility] Reason for visit: HPI: Ratna Bazan is a 63 y.o. 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 These are associated with chest pressure that resolves once the heart rate improves.She denies alcohol use, she drinks 1 or 2 cups of coffee daily. No other caffeinated beverages. She states that she had a sleep study and does not have sleep apnea Pt states that during the 3 days that she wore the Holter monitor the racing pounding of her heart symptom that she has and was her main complaint did not happen during those 3 days. She states this has decreased over the last month or 2 only happening 3-4 times a month. She has been on metoprolol for years, hypertension. Which has been increased and she has felt better on that. Her frequency is gone down from 5/week to much less. PMH: HTN, obesity PSH: no pertinent cardiac hx FMH: Father CAD/CABG in 60 s- HTN Dm, Mother DM Sister- stroke in 50's Social never a smoker, denied ETOH or illicit drugs allergies- multiple- Sulfa allergy- she can't remember reaction but was told by the hospital never to take sulfa again. PMH: Past Medical History: Diagnosis Date Abnormal ECG Hypertension PSH: Past Surgical History: Procedure Laterality Date ANKLE SURGERY SECTION, CLASSIC HYSTERECTOMY KNEE SURGERY SHOULDER SURGERY SH: Social Determinants of Health Tobacco Use: Low Risk (10/29/2023) Patient History Smoking Tobacco Use: Never Smokeless Tobacco Use: Never Passive Exposure: Not on file Alcohol Use: Not on file Financial Resource Strain: Not on file Food Insecurity: Not on file Transportation Needs: Not on file Physical Activity: Not on file Stress: Not on file Social Connections: Not on file Intimate Partner Violence: Unknown (07/03/2023) [place] Safety & Environment Fear of Current or Ex-Partner: Not on file Emotionally Abused: Not on file Physically Abused: Not on file Sexually Abused: Not on file Physically or Sexually Abused: Not on file Depression: Not on file Housing Stability: Not on file Utilities: Not on file Allergies: Allergies Allergen Reactions Bee Venom Protein (Honey Bee) Other Other Reaction(s): swelling, cant'breath Codeine Itching Other Reaction(s): itch Hydrocodone-Acetaminophen Other Other Reaction(s): unknown Metformin Diarrhea Other Reaction(s): intolerant diarrhea Propoxyphene Other Other Reaction(s): can't breath Sulfa (Sulfonamide Antibiotics) Other Other Reaction(s): unknown Oxycodone-Acetaminophen Rash Other Reaction(s): rash, itch Weight: No weight available Visit Vitals BP (!) 179/94 (BP Location: Right wrist, Patient Position: Sitting) Pulse 97 Ht 1.676 m (5' 6 ) SpO2 97% Smoking Status Never Meds: Current Outpatient Medications on File Prior to Visit Medication Sig Dispense Refill amLODIPine (Norvasc) 10 mg tablet Take 10 mg by mouth in the morning. aspirin 81 mg EC tablet Take 1 tablet by mouth in the morning. atorvastatin (Lipitor) 40 mg tablet Take 1 tablet by mouth in the morning. liothyronine (Cytomel) 5 mcg tablet 1.5 tabs in the AM, 1 tab in the PM losartan (Cozaar) 100 mg tablet Take 1 tablet by mouth in the morning. metoprolol tartrate (Lopressor) 50 mg tablet Take 100 mg by mouth two times daily. spironolactone (Aldactone) 25 mg tablet Take 25 mg by mouth twice a day. No current facility-administered medications on file prior to visit. ROS: Review of Systems Cardiovascular: Positive for chest pain ( pressure ), dyspnea on exertion, leg swelling and palpitations. Respiratory: Positive for shortness of breath. All other systems reviewed and are negative. Physical Exam: Constitutional General Appearance: well-nourished, well-developed, appears stated age Level of Distress: comfortable Psychiatric Mental Status: alert, normal affect Orientation: oriented to time, place, and person Insight: good judgement Eyes Lids and Conjunctivae: non-injected, no xanthelasma ENMT Ears: no lesions on external ear Nose: no lesions on external nose Oropharynx: no cyanosis, no pallor Neck Neck: supple, trachea midline Carotid Arteries: bilateral normal upstroke, no bruits Jugular Veins: normal jugular venous pressure Thyroid: not enlarged Lungs Respirator (more content not included)... [facility] Progress note 08-19-2023 Note Date & Type Note Facility 08-19-2023 Note [facility] Cardiology Clinic Note Chief Complaint: New patient here to re-establish care. Ref from Dr. Piña for palpitations. She wore Holter monitor in May 2023. Says she's had MISHRA since she had Covid-19 in 2020. Gets centralized chest pain. Says her HR is usually in the 90's. HPI: Ratna Harry Nearhood is a 63 y.o. 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 Pt states that during [...] have her see (more content not included)... [facility] Evaluation note 01-12-2022 Note Date & [...] days. Dec, Other Contusion material was printed [employer] Other Clinical Note 12-11-2021 Note Date & [...] signed by Fabian Devi on 12/13/2021 0628 [facility] [employer] Evaluation note Note Date & Type Note Facility Evaluation note No assessment information availa [facility] Work Phone: History general Narrative - Reported Note Date & Type Note Facility History general Narrative - Reported Type Medical History Hypertension Medical History hypercholesterolemia Medical History Hypothyroidism Surgical History shoulder surgery 3 Surgical History knee surgery 2 Surgical History C section 2 Surgical History laparoscopy 6 Surgical History wisdom teeth Surgical History appendectomy Surgical History hysterectomy Hospitalization History see above [employer] Other Assessments No Assessments Information Available Summary [...] section and content) DATE CREATED AUTHOR 12/18/[address] [facility] dical Specialist DATE CREATED AUTHOR AUTHOR'S ORGANIZ ATION 01/26/2022 [facility] DATE CREATED AUTHOR AUTHOR'S ORGANIZ ATION 07/20/2022 [facility] DATE CREATED AUTHOR AUTHOR'S ORGANIZ ATION 10/30/2023 [facility] DATE CREATED AUTHOR AUTHOR'S ORGANIZ ATION 12/06/[address] [facility] dical Specialists EPIC REASON FOR VISIT (unrecogniz ed section and [...] BE BASED ON THE PRIMARY CLINICAL RECORDS. [facility] [employer] [facility]. provides no warranty or guarantee of the accuracy or completeness of information in this document.
== END 2024-01-01 10:19 | disposition home or self-care (01) ==
LOC: RAD 10:18
PROVIDERS: PCP Family Medicine; Visit Provider Podiatrist Foot & Ankle Surgery
DX: M79.671 Pain in right foot (principal)
CPT/HCPCS: 73630

== ENCOUNTER 2024-01-08 13:59 | Outpatient (RCR) | payer OTHER, SELFPAY | END 2024-02-20 09:43 | disposition home or self-care (01) | LOC: PT 13:59 | PROVIDERS: PCP Family Medicine; Visit Provider Podiatrist Foot & Ankle Surgery | DX: M79.671 Pain in right foot (principal) | CPT/HCPCS: 97033; 97110; 97140 ==

== ENCOUNTER 2024-03-16 09:20 | Outpatient (OUT) | payer OTHER, SELFPAY ==
--- NOTE | 2024-03-16 09:28 | MR_ITS ---
The [address] [address] Patient Name: AMBER JAUREGUI MRN: [id number] date: 1960 Sex: F Assigned Patient Location: MRI Current Patient Location: Accession/Order Number: [id number] Exam Date: 03/16/2024 09:50 Report Date: 03/19/2024 10:43 At the request of: SHAUN ANSARI Procedure: MR ankle RT wo con EXAM: MR ankle RT wo con REASON FOR EXAM: Right Plantar Fasciitis, Achilles Tendonitis. TECHNIQUE: Multiplanar, multisequence imaging of the right ankle was performed without contrast COMPARISON: Radiographs 01/01/2024. FINDINGS: Mild to moderate fusiform thickening and intermediate signal the Achilles tendon with distal Achilles enthesophytes consistent with tendinosis. A discrete tear is not evident. Reactive edema superficially at the Achilles tendon insertion could reflect peritenonitis. Trace amount of fluid is present in the retrocalcaneal bursa. The plantar fascia is moderately thickened with intermediate signal within inferior calcaneal spur. Reactive edema is noted. Tiny low-grade partial tear is noted involving the medial cord (series 14, image 10). No masslike thickening. Laterally, moderate to severe thickening and intermediate signal the peroneal tendons is consistent with tendinosis. The peroneus longus tendon is thin and attenuated at the level the calcaneus, distal to the peroneal tubercle, which could reflect partial tearing, high-grade. A complete rupture not evident. Lateral ligaments appear grossly intact. Medially, the medial flexor tendons demonstrate normal thickness and signal without tendinosis or tear. The deep deltoid ligament appears intact. The spring ligament is intact. Lisfranc ligament is intact. Anteriorly, the anterior extensor tendons demonstrate normal thickness and signal without tendinosis or tear. The bone marrow signal is without fracture or osteonecrosis. The talar dome appears congruent. The subtalar joints intact. The sinus tarsi is nonedematous. The midfoot appears congruent the plantar musculature demonstrates normal bulk and signal. Nonspecific subcutaneous edema about the foot and ankle. MR/MR ankle RT wo con IMPRESSION: 1. Chronic plantar fasciopathy with possible small focal partial tear along the deep margin the medial cord. 2. Moderate Achilles tendinosis without tear. 3. Moderate to severe peroneal tendinosis with suspicion of a small focal high-grade partial tear of the peroneus longus tendon distal to the peroneal tubercle. A complete rupture not evident. Electronically authenticated by: PATRICIA BARON Date: 03/19/2024 10:43
== END 2024-03-16 09:21 | disposition home or self-care (01) ==
LOC: MRI 09:20
PROVIDERS: PCP Family Medicine; Visit Provider Podiatrist Foot & Ankle Surgery
DX: M72.2 Plantar fascial fibromatosis (principal); M76.61 Achilles tendinitis, right leg
CPT/HCPCS: 73721

== ENCOUNTER 2025-01-16 23:10 | Emergency (ER) | payer MEDICARE, BC, OTHER, SELFPAY ==
--- OUTSIDE RECORDS SUMMARY | 2025-01-06 10:00 | XMS_ITS | Encounter Summary ---
Author Organization [facility] Address [address] [place] [address] Care Team Providers Care Ticketing Agent Name Role Phone Brian Lorenzana MD Primary Care Provider [phone] Justino Galeas MD Unavailable Reason for Visit * ReasonCommentsAnnual Exam Encounter Details DateTypeDepartmentCare Team (Latest Contact Info)Mwrwcdamkru96/22/2025 10:00 AM EDTOffice Visit [facility] [place] [address] Family Medicine [address] [place] [address] Brian Lorenzana MD 112 [facility] [address] [place] [address] Welcome to Medicare preventive visit (Primary Dx); Advance directive in chart; Encounter for screening for other disorder; Screening for alcohol problem; Screening for osteoporosis; Menopause; Screening mammogram, encounter for; Primary pulmonary hypertension (HCC); Pulmonary fibrosis, unspecified (HCC); Chronic restrictive lung disease; Morbid obesity due to excess calories ([facility]-HCC); BMI 45.0-49.9, adult ([facility]) Social History Tobacco UseTypesPacks/DayYears UsedDateSmoking Tobacco: NeverSmokeless Tobacco: Never Tobacco Cessation:Counseling Given: Not Answered Alcohol UseStandard Drinks/WeekCommentsNever0 (1 standard drink = 0.6 oz pure alcohol)Caffeine intake: 2-3 cups per dayPHQ-2AnswerDate RecordedPatient Health Questionnaire-2 Xntkz671Exercise Vital SignAnswerDate RecordedOn average, how many days [...] steady place to sleep or [facility] ([facility] now)?No09/23/2022 Housing Stability Vital SignAnswerDate RecordedIn [...] relatives?Twice a week01/05/2025How often do you attend christian or spiritism services?More than 4 times per year01/05/2025Do you belong to any clubs or organizations such as christian groups, unions, fraternal or athletic groups, or [...] medical care, and heating?Not hard at all 01/05/2025[facility] [place] [facility] Occup[facility] Health - Occupational Stress QuestionnaireAnswerDate RecordedDo you feel stress - tense, restless, nervous, or anxious, or unable to sleep at night because yourmind is troubled all the time - these days?Only a zfcepn6501/05/2025Hunger Vital SignAnswerDate Recorded Within the past 12 [...] RecordedSex Assigned at BirthNot on fileLegal Sex Sbyett3405/30/2022 6:42 PM EDTGender IdentityNot on fileSexual OrientationNot on fileOccupationIndustryJob Start DateJob End DateWork part timeNot on fileNot on fileNot on filedocumented as of this encounter Last Filed Vital Signs Vital SignReadingTime TakenCommentsBlood Mncvwrid756/801 10:12 AM EDT Pvgnb44485/22/2025 10:51 AM EDTTemperature--Respiratory Rate--Oxygen Saturation 97%01/06/2025 10:12 AM EDTInhaled Oxygen Concentration--Zikgqu403 kg (303 lb) 01/06/2025 10:12 AM ERPJluqzq911.6 cm (5' 6 )01/06/2025 10:12 AM EDTBody [...] friends, or caretakers Three Word Registration: Banana, [place], Chair Clock Drawing: Normal Clock - 2 [...] Marcie Hypertension Mother Marcie Heart failure Mother Marice Other (chronic back pain) Mother Marcie Arthritis [...] Plan of Treatment DateTypeDepartmentCare Team (Latest Contact Info)Yzisuzheqrp44/19/2025 10:00 AM ESTOffice Visit N[facility] [address] [address] Brian Lorenzana MD [address] [place] [address] NameTypePriorityAssociated DiagnosesOrder ScheduleBilateral screening mammogram with tomosynthesisImagingRoutine [...] MemberRelationshipSpecialtyStart DateEnd Date Brian Lorenzana MD [address] [place] [address] PCP - GeneralFamily Medicine08/20/22 Justino Galeas MD [address] [facility] [place] [place] [phone] Referring HlgztpbxjFapqfohmcp78/22/25documented as of this encounter
--- NOTE | 2025-01-16 00:02 | XR_ITS ---
The [address] [address] Patient Name: AMBER JAUREGUI MRN: [facility]:[id number] date: 1960 Sex: F Assigned Patient Location: ED.MAIN Current Patient Location: Accession/Order Number: [id number] Exam Date: 01/16/2025 23:55 Report Date: 01/17/2025 07:50 At the request of: SLIME BLOOM MD Procedure: XR lumbar spine 2-3V 3 views of the lumbar spine INDICATION: Atraumatic pain COMPARISON: None FINDINGS: Vertebral bodies are maintained. Mild dextrocurvature thoracolumbar junction. Moderate disc space narrowing T12-L2 and mild disc space narrowing involving the mid lumbar spine. Moderate disc space narrowing L4-S1. Multilevel facet arthropathy.. Mild spurring sacroiliac joints. XR/XR lumbar spine 2-3V IMPRESSION: Multilevel degenerative changes. Impression dictated by: Keyon Fritz M.D. 01/17/2025 7:50 AM Dictation Location: [place] [address] Electronically authenticated by: [id number] Y Date: 01/17/2025 07:50
--- OUTSIDE RECORDS SUMMARY | 2025-01-16 23:25 | XMS_ITS | CCD ---
Author Organization [facility] Care Team Providers Care Director Hematology Name Role Phone Yvette Velez Attending Provider Hiral Pearl Unavailable NO FAMILY, PHYSICIAN Primary Care Provider Unava ilCIERRA Ly Attending Provider Hiral Pearl Attending Unavailable Hiral Pearl Admitting Unavailable NO FAMILY, PHYSICIAN Primary Care Unavailable HEMERAMIRO ., DR GUZMAN Primary Care Unavailable HEMEYER ., DR GUZMAN Admitting Unavailable HEMEYER ., DR GUZMAN Attending Unavailable HEMEYER ., DR GUZMAN Consulting Unavailable ZIEBER, DR TIGRE Andrade Consulting Unavailable HEMEYER ., DR GUZMAN Admitting Unavailable HEMEYER ., DR GUZMAN Attending Unavailable HEMEYER ., DR GUZMAN Consulting Unavailable FABIOYER ., DR GUZMAN Primary Care Unavailable Brian Piña MD Primary Care Provider [phone] Brian Piña MD Primary Care Provider ROMY ACEVES Attending Unavailable JUSTINO GALEAS Attending Unavailable ROMY ACEVES Attending Unavailable Brian Piña MD Primary Care Provider BRIAN PIÑA Attending Unavailable BRIAN PIÑA Attending Unavailable BRIAN PIÑA Attending Unavailable Justino Galeas MD Unavailable Unavailable Unavailable Unavailable Allergies Allergy ClassificationReported Allergen(s)Allergy TypeDate of OnsetReaction(s) Facility (2 sources)Acetaminophen / HYDROcodone; Translations: [Vicodin]Drug Allergy shortness of breathThe [facility] ([facility] source)Acetaminophen / oxyCODONEDrug Allergyshortness of breathNohawthorn [facility]asm[facility] Other (1 source)Sulf-10Drug allergyrash difficult breathingNorth Yasmo Other (2 sources)Darvocet-N 100; Translations: [Darvocet-N 100]Drug kynchqy37-26-1597 shortness of breathThe [facility] (1 source)Acetaminophen / oxyCODONEDrug Upumife84-73-1552Axv [facility] Repository (1 source)bee venomDrug allergy (disorder)44-57-8940Lyv [facility] Repository (2 sources)Codeine; Translations: [CODEINE]Drug Ipdtxku44-51-3638Yjn [facility] Repository (1 source)HYDROcodoneDrug Vhepqvh43-18-9801Nxb [facility] Repository (1 source)iodoformDrug Tcwtpxw64-92-0039Xxo [facility] Repository (2 sources)metFORMIN; Translations: [METFORMIN]Drug Bettttr22-59-6444Ytc [facility] Repository (1 source)Sulfonamides (Antibiotic)Drug allergy (disorder)67-16-5615Uzl [facility] Repository (1 source)traMADolDrug Vmibkii95-70-3882Wcb [facility] Repository (14 sources)Acetaminophen / HYDROcodone; Translations: [HYDROCODONE-ACETAMINOPHEN]Drug Qdmlvku49-05-8609[facility] (14 sources)Acetaminophen / oxyCODONE; Translations: [OXYCODONE-ACETAMINOPHEN] Drug Bldumtk09-57-9714WeqfgMEWV [facility] (13 sources)CodeineDrug Iwqvbzk50-70-2493TnsaVVQF [facility] (13 sources)Honey bee venomAllergy to ydzurszzr21-39-8777Pmtlyjgtt of breath, Swelling, WheezingNOMS Healthcare (13 sources)metFORMINDrug Rdopaoa05-04-0929[facility] (14 sources)Propoxyphene; Translations: [PROPOXYPHENE]Drug Yufxdtn98-70-2900 Shortness of breath, WheezingNOMS Healthcare (13 sources)Sulfonamides (Antibiotic)Drug Iwfhgjh35-13-8667FajtnSLYN [facility] (1 source)Sulfonamides (Antibiotic); Translations: [SULFA (SULFONAMIDE ANTIBIOTICS)]Propensity to adverse reactions to drug (disorder)08-20-2022 [facility] Repository (1 source)BEE VENOM PROTEIN (HONEY BEE); Translations: [BEE VENOM PROTEIN (HONEY BEE)]Propensity to adverse reactions to drug (disorder)22-43-7957JgiulrmpcaSt. [facility]'s Hospital Repository Medications Current Medications MedicationDrug Class(es)DatesSig (Normalized)Sig (Original)[id number] 200 actuat albuterol 0.09 mg/actuat metered dose inhaler (13 sources)beta2-Adrenergic AgonistStart: 75-63-6949bzcd 2 puff(s) by inhalation every four hours for wheezingalbuterol HFA 90 mcg/act inhaler Indications: Pulmonary fibrosis (HCC) Inhale 2 puffs every 4 (four) hours if needed for wheezing. 18 g 2 11/20/2022 ActiveamLODIPine Benzoate (1 source)amLODIPine Benzoate Activeaspirin 81 mg delayed release oral tablet (13 sources)Platelet Aggregation Inhibitor, Nonsteroidal Anti-inflammatory Drug take 1 tablet by mouth in the morningaspirin 81 MG EC tablet Take 81 mg by mouth in the morning. Activeatorvastatin 40 mg oral tablet (13 sources)HMG-CoA Reductase InhibitorStart: 12-14-2024 End: 45-54-7981udbg 1 tablet by mouth in the eveningatorvastatin (Lipitor) 40 MG tablet Indications: Mixed hyperlipidemia Take 1 tablet (40 mg) by mouth in the evening 60 tablet 12/14/2024 02/12/2025 ActiveStart: 05-28-2023 End: 58-51-5460lzxm 1 tablet by mouth in the eveningatorvastatin (Lipitor) 40 MG tablet Indications: Mixed hyperlipidemia Take 1 tablet (40 mg) by mouth in the evening 90 tablet 1 05/28/2023 12/04/2023 Discontinued (Reorder)Atorvastatin Calcium Activeflecainide acetate 100 mg oral tablet (11 sources)AntiarrhythmicStart: 10-29-2023 End: 35-67-6789zicl 1 tablet by mouth in the morningflecainide (Tambocor) 100 MG tablet Take 100 mg by mouth in the morning and 100 mg in the evening. 10/29/2023 Activeliothyronine sodium 0.005 mg oral tablet (9 sources)l-TriiodothyronineStart: 08-07-2023 End: 83-46-9309gbgzhpmgwwbo (Cytomel) 5 MCG tablet Indications: ESS (euthyroid sick syndrome) , Chronic fatigue Take 1.5 tablet in AM and 1 tablet in PM on an empty stomach. SAMUEL; Sigma or [employer] brands only 225tablet 03/25/2024 09/29/2024 Discontinued (Patient refused)Liothyronine Sodium Activemetoprolol tartrate 100 mg oral tablet (13 sources)beta-Adrenergic BlockerStart: 12-14-2024 End: 75-19-5525rxwq 1 tablet by mouth in the morningmetoprolol tartrate (Lopressor) 100 MG tablet Indications: Benign essential hypertension Take 1 tabl et (100 mg) by mouth in the morning and 1 tablet (100 mg) before bedtime. 120 tablet 12/14/2024 02/12/2025 ActiveStart: 08-20-2023 End: 99-02-5368qufg 1 tablet by mouth in the morningmetoprolol tartrate (Lopressor) 100 MG tablet Indications: Benign essential hypertension Take 1 tabl et (100 mg) by mouth in the morning and 1 tablet (100 mg) before bedtime. 180 tablet 1 12/04/2023 Activetake 1 tablet by mouth every twelve hoursMetoprolol Tartrate 50 MG 1 tablet Orally Twice a day for 30 day(s) ActivePost-OP Shoe/Soft Top Women - (1 source)Start: 48-18-2673Cvmi-OP Shoe/Soft Top Women - as directed diagnosis: contusion right foot Dec, Active Completed/Discontinued Medications MedicationDrug Class(es)DatesSig (Normalized)Sig (Original)amLODIPine 10 mg oral tablet (12 sources)Dihydropyridine Calcium Channel BlockerStart: 05-28-2023 End: 59-23-0913xaru 1 tablet by mouth once dailyamLODIPine (Norvasc) 10 MG tablet Indications: Benign essential hypertension Take 1 tablet (10 mg) by mouth Daily 90 tablet 1 05/28/2023 12/04/2023 Discontinued (Reorder)losartan potassium 100 mg oral tablet (13 sources)Angiotensin 2 Receptor BlockerStart: 05-28-2023 End: 80-71-5527dmmr 1 tablet by mouth once dailylosartan (Cozaar) 100 MG tablet Indications: Benign essential hypertension Take 1 tablet (100 mg) by mouth Daily 90 tablet 1 05/28/2023 12/04/2023 Discontinued (Reorder)take 1 tablet by mouth every twenty-four hoursLosartan Potassium 100 MG 1 tablet Orally Once a day for 30 day(s) Activespironolactone 25 mg oral tablet (12 sources)Aldosterone AntagonistStart: 05-28-2023 End: 87-41-0249hlho 1 tablet by mouth in the morningspironolactone (Aldactone) 25 MG tablet Indications: Venous (peripheral) insufficiency Take 1 tablet (25 mg) by mouth in the morning and 1 tablet (25 mg) before bedtime. 180 tablet 1 05/28/2023 12/04/2023 Discontinued (Reorder) Problems Active Problems Problem ClassificationProblemDateDocumented DateEpisodic/ChronicAdjustment disorders (20 sources)Acute situational disturbance; Translations: [Adjustment disorder, unspecified]Onset: 368783-92-6963ZqdhvbgIwnwvwp dysrhythmias (20 sources)Multiple premature ventricular complexes; Translations: [Ventricular premature depolarization]Onset: 805911-74-2236IazuinhVwmrugu dysrhythmias (2 sources)Palpitations; Translations: [Palpitations]Onset: 52-39-3496Fvoxerje Chronic kidney disease (15 sources)Chronic kidney disease stage 2; Translations: [Chronic kidney disease, stage 2 (mild)]Onset: 753615-29-1441PtbmlyuYcbjhbbqq of lipid metabolism (15 sources)Mixed hyperlipidemia; Translations: [Mixed hyperlipidemia]Onset: 759065-75-1278ZmggepvJjdrmfmlf hypertension (15 sources)Benign essential hypertension; Translations: [Essential (primary) hypertension]Onset: 676680-14-7290MfxcucsUxnnyjej; including migraine (13 sources)Chronic cluster headache; Translations: [Chronic cluster headache, not intractable]Onset: 752733-85-4385BisihesVvapqbexxpgu with complications and secondary hypertension (15 sources)Hypertensive renal disease; Translations: [Hypertensive chronic kidney disease with stage 1 throughstage 4 chronic kidney disease, or unspecified chronic kidney disease]Onset: 107965-85-8174TsxowwwVdyurcg and fatigue (17 sources)Chronic fatigue, unspecified; Translations: [Fatigue]Onset: 065520-75-0083AujgkpeMecspecuyyb deficiencies (13 sources)Vitamin D deficiency; Translations: [Vitamin D deficiency, unspecified]Onset: 496819-58-8526IizfhytJghlqsqhasxccw (13 sources)Degenerative joint disease of shoulder region; Translations: [Primary osteoarthritis, unspecified shoulder]Onset: hronic Other acquired deformities (13 sources)Equinus contracture of the ankle; Translations: [Contracture, left ankle]Onset: 124602-54-0810PkrfoquPipdb and ill-defined heart disease (13 sources)Cardiomegaly; Translations: [Cardiomegaly]Onset: 06-21-2023 98-70-8266YeeerygHtnkj congenital anomalies (13 sources)Tarsal coalition of right foot; Translations: [Other specified congenital deformities of feet]Onset: 510117-84-9479IcbhiacNbuwc connective tissue disease (1 source)Pain in right footEpisodicOther connective tissue disease (2 sources)Plantar fasciitis of right foot; Translations: [Plantar fascial fibromatosis]02-92-7078QdyiiefqErnic endocrine disorders (13 sources)Reactive hypoglycemia; Translations: [Other hypoglycemia]Onset: 078717-78-0091JpfddueZsozh infections; including parasitic (13 sources)Late effects of other and unspecified infectious and parasitic diseases; Translations: [Post-acute sequelae of COVID-19 (PASC)]Onset: 750394-76-7791NdfungjXseex lower respiratory disease (13 sources)Interstitial lung disease; Translations: [Interstitial pulmonary disease, unspecified]Onset: 018758-99-1161UuesfivCrwzj lower respiratory disease (3 sources)Calcified granuloma of lung; Translations: [Pulmonary fibrosis, unspecified]Onset: 803539-97-1360EvqaimkJftxs lower respiratory disease (8 sources)Fibrosis of lung; Translations: [Pulmonary fibrosis, unspecified] Onset: 550803-71-9703XuvnrjySpxbx lower respiratory disease (8 sources)Restrictive lung disease; Translations: [Other disorders of lung] Onset: 968867-37-9037IrrxhkjiZqqyz nervous system disorders (13 sources)Chronic pain; Translations: [Other chronic pain]Onset: 08-20-2022 10-63-9875AyohgetSvnem nutritional; endocrine; and metabolic disorders (15 sources)Insulin resistance; Translations: [Insulin resistance]Onset: 889892-54-8192EckjpmzYdbnx nutritional; endocrine; and metabolic disorders (17 sources)Morbid obesity; Translations: [Morbid (severe) obesity due to excess calories]Onset: 472545-01-4740ZevwyoxKbgbj nutritional; endocrine; and metabolic disorders (8 sources)Body mass index 40+ - severely obese; Translations: [Body mass index (BMI) 45.0-49.9, adult]Onset: 841662-87-6510EmsvszpRmkvz screening for suspected conditions (not mental disorders or infectious disease) (10 sources)Encounter for screening mammogram for malignant neoplasm of breast; Translations: [Patient encounter status]Onset: 16-13-7192CklozjqcLyzwwdhkm heart disease (8 sources)Idiopathic pulmonary arterial hypertension ; Translations: [Primary pulmonary hypertension]Onset: 679599-28-9674YvblimxVucjkgoc codes; unclassified (1 source)Family history of malignant neoplasm of breast; Translations: [FAMILY HX MALIG NEOPLASM OF BREAST]Onset: 59-99-9438CsvgsqcmTmebpycq codes; unclassified (2 sources)Active advance directive (copy within chart) ; Translations: [Other specified health status]42-87-8202GsmujgxxZdvkzeqk codes; unclassified (2 sources)Menopause present; Translations: [Asymptomatic menopausal state] 27-33-9837HlbmksppFjowtelqxqk failure; insufficiency; arrest (adult) (13 sources)Chronic hypoxemic respiratory failure; Translations: [Chronic respiratory failure with hypoxia]Onset: 08-20-2022 Resolved: 934253-36-1283BkmmolwGuuaabgjw and history of mental health and substance abuse codes (2 sources)Patient encounter status; Translations: [Encounter for screening examination for other mental health and behavioral disorders]72-44-7901Hqcnjbid Superficial injury; contusion (1 source)Contusion of right foot, initial encounterEpisodicUnclassified (1 source)Pain in right foot; Translations: [Pain in right foot]Onset: 91-57-2667Acbphtckryez (1 source)Supraventricular tachycardia, unspecified; Translations: [Supraventricular tachycardia, unspecified]Onset: 08-19-2023 Past or Other Problems Problem ClassificationProblemDateDocumented DateEpisodic/ChronicGenitourinary symptoms and ill-defined conditions (15 sources)Microalbuminuria; Translations: [Proteinuria, unspecified]Onset: 920803-32-2380BpwenxbeOwuoypgi; including migraine (13 sources)Headache disorder; Translations: [Other headache syndrome]Onset: 097830-85-0912BkoefesgLqzcn aftercare (15 sources)Polypharmacy ; Translations: [Other prison (current) drug therapy]Onset: 482836-13-0790WhhcmvjoAzvzh diseases of veins and lymphatics (15 sources)Peripheral venous insufficiency; Translations: [Venous insufficiency (chronic) (peripheral)]Onset: 049597-34-5370IetypsxhSszbo lower respiratory disease (10 sources)Calcified granuloma of lung; Translations: [Other disorders of lung] Onset: 805107-36-1609HercvktpDvcrvlf disorders (20 sources)Sick-euthyroid syndrome; Translations: [Sick-euthyroid syndrome] Onset: 19-63-5562UrlbluydVzfccbesbscn (1 source)Supraventricular tachycardia, unspecified; Translations: [Supraventricular tachycardia, unspecified]Onset: 05-19-2024 Results Test NameValueInterpretationReference RangeFacilityCOMPREHENSIVE METABOLIC PANEL on 26-21-8987Xpwrnqc [Mass/Vol]3.9 g/dLNormal3.6-5.1Quest DiagnosticsComment on above:Performed By: #### 7600, 496 #### [facility] [address], [address] [place] [phone] Subcontract Manager: Bill Holman MD #### [id number] #### [facility] [address] [place] [address] Subcontract Manager: Rosalee Andrade FlatiAlbumin/Globulin [Mass ratio]1.5 {ratio}Normal 1.0-2.5Quest DiagnosticsComment on above:Performed By: #### 7600, 496 #### [facility] of [address], [address] [place] [address] Subcontract Manager: Bill Holman MD #### [id number] #### [facility] [address] [place], [place] [phone] Subcontract Manager: Roslaee Andrade FlatiALP [Catalytic activity/Vol]95 U/PZaenok19-239 Quest DiagnosticsComment on above:Performed By: #### 7600, 496 #### [facility] of [address], [address] [place] [address] Subcontract Manager: Bill Holman MD #### [id number] #### [facility] [address] [place], [place] [address] Subcontract Manager: Rosalee Andrade FlatiALT [Catalytic activity/Vol]20 U/LNormal6-29 Quest DiagnosticsComment on above:Performed By: #### 7600, 496 #### [facility] of [address], [address] [place] [address] Subcontract Manager: Bill Holman MD #### [id number] #### [facility] [address] [place] [address] Subcontract Manager: Rosalee Andrade FlatiAST [Catalytic activity/Vol]15 U/OXmmhza20-93 Quest DiagnosticsComment on above:Performed By: #### 7600, 496 #### [facility] of [address], [address] [place] [address] Subcontract Manager: Bill Holman MD #### [id number] #### [facility] [address] [place] [address] Subcontract Manager: Rosalee Andrade FlatiBilirubin [Mass/Vol]0.9 mg/dLNormal0.2-1.2 Quest DiagnosticsComment on above:Performed By: #### 7600, 496 #### [facility] of [address], [address] [place] [address] Subcontract Manager: Bill Holman MD #### [id number] #### [facility] [address] [place] [address] Subcontract Manager: Rosalee NevilleiBUN/CREATININE RATIOSEE NOTE:Normal6-22Quest DiagnosticsComment on above:Result Comment: Not Reported: BUN and Creatinine are within reference range.Performed By: #### 7600, 496 #### [facility] [place] [address] [address] , [address] [place] [address] Subcontract Manager: Bill Holman MD #### [id number] #### [facility] [address] [place] [address] Subcontract Manager: Rosalee NevilleiCalcium [Mass/Vol]9.0 mg/dLNormal8.6-10.4Quest DiagnosticsComment on above:Performed By: #### 7600, 496 #### [facility] [address], [address] [place] [address] Subcontract Manager: Bill Holman MD #### [id number] #### [facility] [address] [place] [address] Subcontract Manager: Rosalee Andrade FlatiChloride [Moles/Vol]106 mmol/LSrkwca41-288 Quest DiagnosticsComment on above:Performed By: #### 7600, 496 #### [facility] [place] [address] [address] , [address] [place] [address] Subcontract Manager: Bill Holman MD #### [id number] #### [facility] [address] [place] [address] Subcontract Manager: Rosalee Andrade FlatiCO2 [Moles/Vol]26 mmol/GOefyfo13-92Cjwto DiagnosticsComment on above:Performed By: #### 7600, 496 #### [facility] [place] [address] [address] , [address] [place] [address] Subcontract Manager: Bill Holman MD #### [id number] #### [facility] [address] [place] [phone] Subcontract Manager: Rosalee Andrade FlatiCreatinine [Mass/Vol]0.87 mg/dLNormal0.50-1.05 Quest DiagnosticsComment on above:Performed By: #### 7600, 496 #### [facility] [address], [address] [place] [address] Subcontract Manager: Bill Holman MD #### [id number] #### [facility] [phone] Subcontract Manager: Rosalee Andrade FlatiGFR/1.73 sq M.predicted among non-blacks MDRD (S/P/Bld) [Vol rate/Area]74 mL/min/{1.73_m2}Normal> OR = 60[facility] Comment on above:Performed By: #### 7600, 496 #### [facility] [address], [address] [place] [address] Subcontract Manager: Bill Holman MD #### [id number] #### [facility] [phone] Subcontract Manager: Rosalee Andrade FlatiGlobulin (S) [Mass/Vol]2.6 g/dLNormal1.9-3.7 Quest DiagnosticsComment on above:Performed By: #### 7600, 496 #### [facility] [address], [address] [place] [address] Subcontract Manager: Bill Holamn MD #### [id number] #### [facility] [address] [place] [phone] Subcontract Manager: Rosalee Andrade FlatiGlucose [Mass/Vol]107 mg/uWHjqf09-90Hkmlr DiagnosticsComment on above:Result Comment: Fasting reference interval For someone without known diabetes, a glucose value between 100 and 125 mg/dL is consistent with prediabetes and should be confirmed with a follow-up test.Performed By: #### 7600, 496 #### [facility] [address], [address] [place] [address] Subcontract Manager: Bill Holman MD #### [id number] #### [facility] [address] [place] [address] Subcontract Manager: Rosalee Andrade FlatiPotassium [Moles/Vol]4.4 mmol/LNormal3.5-5.3 Quest DiagnosticsComment on above:Performed By: #### 7600, 496 #### [facility] [address], [address] [place] [address] Subcontract Manager: Bill Holman MD #### [id number] #### [facility] [address] Subcontract Manager: Rosalee NevilleiProtein [Mass/Vol]6.5 g/dLNormal6.1-8.1Quest DiagnosticsComment on above:Performed By: #### 7600, 496 #### [facility] [address], [address] [place] [address] Subcontract Manager: Bill Holman MD #### [id number] #### [facility] [address] Subcontract Manager: Rosalee Andrade FlatiSodium [Moles/Vol]141 mmol/RBfwlxz653-098Qzeci DiagnosticsComment on above:Performed By: #### 7600, 496 #### [facility] [address], [address] [place] [address] Subcontract Manager: Bill Holman MD #### [id number] #### [facility] [address] [place] [address] Subcontract Manager: Rosalee NevilleiUrea nitrogen [Mass/Vol]17 mg/dLNormal7-25 [facility] DiagnosticsComment on above:Performed By: #### 7600, 496 #### [facility] [address], [address] [place] [address] Subcontract Manager: Bill Holman MD #### [id number] #### [facility] [address] [place] [address] Subcontract Manager: Rosalee NevilleiHEMOGLOBIN A1con 27-74-1485FUDROFOLZL A1c6.3 % of total HgbHigh<5.7Quest DiagnosticsComment on above:Result Comment: For someone without known diabetes, a hemoglobin A1c value between 5.7% and 6.4% is consistent with prediabetes and should be confirmed with a follow-up test. For someone with known diabetes, a value <7% indicates that their diabetes is well controlled. A1c targets should be individualized based on duration of diabetes, age, comorbid conditions, and other considerations. This assay result is consistent with an increased risk of diabetes. Currently, no consensus exists regarding use of hemoglobin A1c for diagnosis of diabetes for children.Performed By: #### 7600, 496 #### [facility] [address], [address] [place] [address] Subcontract Manager: Bill Holman MD #### [id number] #### [facility] [address] [place] [phone] Subcontract Manager: Rosalee NevilleiLIPID PANEL, STANDARDon 10-26-5420Vjelcjhoppm [Mass/Vol]154 mg/dLNormal<200Quest DiagnosticsComment on above:Order Comment: FASTING:YES PATIENT UNABLE TO VOID; ADVISED TO RETURN FOR COLLECTION. FASTING: YESPerformed By: #### 0180, 496 #### [facility] [address], [address] [place] [address] Subcontract Manager: Bill Holman MD #### [id number] #### [facility] [address] [place] [phone] Subcontract Manager: Rosalee NevilleiCholesterol in HDL [Mass/Vol]38 mg/dLLow> OR = 50Quest DiagnosticsComment on above:Order Comment: FASTING:YES PATIENT UNABLE TO VOID; ADVISED TO RETURN FOR COLLECTION. FASTING: YESPerformed By: #### 1280, 496 #### [facility] [address], [address] [place] [address] Subcontract Manager: Bill Holman MD #### [id number] #### [facility] [place] [address] Subcontract Manager: Rosalee NevilleiCholesterol in LDL [Mass/Vol]90 mg/dLNormal [facility] DiagnosticsComment on above:Order Comment: FASTING:YES PATIENT UNABLE TO VOID; ADVISED TO RETURN FOR COLLECTION. FASTING: YESResult Comment: Reference range: <100 Desirable range <100 mg/dL for primary prevention; <70 mg/dL for patients with CHD or diabetic patients with > or = 2 CHD risk factors. LDL-C is now calculated using the Irais calculation, which is a validated novel method providing better accuracy than the Friedewald equation in the estimation of LDL-C. Adrian SS et al. HI. 2013;310(19): 9103-7378 (http://education.Sagoon/faq/UQG646)Performed By: #### 7600, 496 #### [employer] [address], [address] [place] [address] Subcontract Manager: Bill Holman MD #### [id number] #### [facility] [address] [place] [phone] Subcontract Manager: Rosalee Knightolesterol.total/Cholesterol in HDL [Mass ratio]4.1 {ratio}Normal<5.0Quest DiagnosticsComment on above:Order Comment: FASTING:YES PATIENT UNABLE TO VOID; ADVISED TO RETURN FOR COLLECTION. FASTING: YESPerformed By: #### 7600, 496 #### [facility] [address], [address] [place] [address] Subcontract Manager: Bill Holman MD #### [id number] #### [facility] [address] [place] [phone] Subcontract Manager: Rosalee NevilleiNON HDL YOCXSMNHAVJ361 mg/dL (calc)Normal<130 [facility] DiagnosticsComment on above:Order Comment: FASTING:YES PATIENT UNABLE TO VOID; ADVISED TO RETURN FOR COLLECTION. FASTING: YESResult Comment: For patients with diabetes plus 1 major ASCVD risk factor, treating to a non-HDL-C goal of <100 mg/dL (LDL-C of <70 mg/dL) is considered a therapeutic option.Performed By: #### 7600, 496 #### [facility] [address] [facility], [address] [place], [place] [id number] Subcontract Manager: Bill Holman MD #### [phone] #### [facility] [address] [place] [phone] Subcontract Manager: Rosalee NevilleiTriglyceride [Mass/Vol]160 mg/dLHigh<150Quest DiagnosticsComment on above:Order Comment: FASTING:YES PATIENT UNABLE TO VOID; ADVISED TO RETURN FOR COLLECTION. FASTING: YESPerformed By: #### 7600, 496 #### [facility] [place] [address] [facility], [address] [place], [place] [id number] Subcontract Manager: Bill Holman MD #### [phone] #### [facility] [address] [place] [phone] Subcontract Manager: Rosalee Sandhu Visiton 03-22-6974Bjnijm-up visit [phone] Ratna Bazan 1960 F Date Provider Department Center 05/19/[address] [facility] Family History Problem Relation Age of Onset Atrial fibrillation Father Other Father Heart failure Father Other Father Family Status - Relation Status Age at Father Level of Service:14443 HI OFFICE/OUTPATIENT ESTABLISHED LOW [facility] 20 [facility]MR Ank[facility] - right WO contraston [id number] [address] Magnetic Resonance Report Signed Patient: RATNA BAZAN MR#: [id number] : 1960 Acct:[id number] Age/Sex: 63 / F ADM Date: 03/16/24 Loc: MRI Attending Dr: Shaun Lee D.P.M. Ordering Physician: Shaun Lee D.P.M. Date of Service: 03/16/24 Procedure(s): MR ankle RT wo con Accession Number(s): [id number] cc: BRIAN PIÑA ; Shaun Lee D.P.M. [place] [id number] Patient Name: RATNA BAZAN MRN: [id number] date: 1960 Sex: F Assigned Patient Location: MRI Current Patient Location: Accession/Order Number: [id number] Exam Date: 03/16/2024 09:50 Report Date: 03/19/2024 10:43 At the request of: SHAUN LEE Procedure: MR ankle RT wo con EXAM: MR ankle RT wo con REASON FOR EXAM: Right Plantar Fasciitis, Achilles Tendonitis. TECHNIQUE: Multiplanar, multisequence imaging of the right ankle was performed without contrast COMPARISON: Radiographs 01/01/2024. FINDINGS: Mild to moderate fusiform thickening and intermediate signal the Achilles tendon with distal Achilles enthesophytes consistent with tendinosis. A discrete tear is not evident. Reactive edema superficially at the Achilles tendon insertion could reflect peritenonitis. Trace amount of fluid is present in the retrocalcaneal bursa. The plantar fascia is moderately thickened with intermediate signal within inferior calcaneal spur. Reactive edema is noted. Tiny low-grade partial tear is noted involving the medial cord (series 14, image 10). No masslike thickening. Laterally, moderate to severe thickening and intermediate signal the peroneal tendons is consistent with tendinosis. The peroneus longus tendon is thin and attenuated at the level the calcaneus, distal to the peroneal tubercle, which could reflect partial tearing, high-grade. A complete rupture not evident. Lateral ligaments appear grossly intact. Medially, the medial flexor tendons demonstrate normal thickness and signal without tendinosis or tear. The deep deltoid ligament appears intact. The spring ligament is intact. Lisfranc ligament is intact. Anteriorly, the anterior extensor tendons demonstrate normal thickness and signal without tendinosis or tear. The bone marrow signal is without fracture or osteonecrosis. The talar dome appears congruent. The subtalar joints intact. The sinus tarsi is nonedematous. The midfoot appears congruent the plantar musculature demonstrates normal bulk and signal. Nonspecific subcutaneous edema about the foot and ankle. MR/MR ankle RT wo con IMPRESSION: 1. Chronic plantar fasciopathy with possible small focal partial tear along the deep margin the medial cord. 2. Moderate Achilles tendinosis without tear. 3. Moderate to severe peroneal tendinosis with suspicion of a small focal high-grade partial tear of the peroneus longus tendon distal to the peroneal tubercle. A complete rupture not evident. Electronically authenticated by: PATRICIA BARON Date: 03/19/2024 10:43 Dictated By: Patricia Baron M.D. Signed By: 03/19/24 1045 DD/ 1043 TD/TT: Physician Scribe:TBHRadiology, Radiologist, MD - 03/19/2024 [place] [address] Magnetic Resonance Report Signed Patient: RATNA BAZAN MR#: [id number] : 1960 Acct:[id number] Age/Sex: 63 / F ADM Date: 03/16/24 Loc: MRI Attending Dr: Shaun Lee D.P.M. Ordering Physician: Shaun Lee D.P.M. Date of Service: 03/16/24 Procedure(s): MR ankle RT wo con Accession Number(s): [id number] cc: BRIAN PIÑA ; Shaun Lee D.P.M. The [place] [id number] Patient Name: RATNA BAZAN MRN: [id number] date: 1960 Sex: F Assigned Patient Location: MRI Current Patient Location: Accession/Order Number: [id number] Exam Date: 03/16/2024 09:50 Report Date: 03/19/2024 10:43 At the request of: SHAUN LEE Procedure: MR ankle RT wo con EXAM: MR ankle RT wo con REASON FOR EXAM: Right Plantar Fasciitis, Achilles Tendonitis. TECHNIQUE: Multiplanar, multisequence imaging of the right ankle was performed without contrast COMPARISON: Radiographs 01/01/2024. FINDINGS: Mild to moderate fusiform thickening and intermediate signal the Achilles tendon with distal Achilles enthesophytes consistent with tendinosis. A discrete tear is not evident. Reactive edema superficially at the Achilles tendon insertion could reflect peritenonitis. Trace amount of fluid is present in the retrocalcaneal bursa. The plantar fascia is moderately thickened with intermediate signal within inferior calcaneal spur. Reactive edema is noted. Tiny low-grade partial tear is noted involving the medial cord (series 14, image 10). No masslike thickening. Laterally, moderate to severe thickening and intermediate signal the peroneal tendons is consistent with tendinosis. The peroneus longus tendon is thin and attenuated at the level the calcaneus, distal to the peroneal tubercle, which could reflect partial tearing, high-grade. A complete rupture not evident. Lateral ligaments appear grossly intact. Medially, the medial flexor tendons demonstrate normal thickness and signal without tendinosis or tear. The deep deltoid ligament appears intact. The spring ligament is intact. Lisfranc ligament is intact. Anteriorly, the anterior extensor tendons demonstrate normal thickness and signal without tendinosis or tear. The bone marrow signal is without fracture or osteonecrosis. The talar dome appears congruent. The subtalar joints intact. The sinus tarsi is nonedematous. The midfoot appears congruent the plantar musculature demonstrates normal bulk and signal. Nonspecific subcutaneous edema about the foot and ankle. MR/MR ankle RT wo con IMPRESSION: 1. Chronic plantar fasciopathy with possible small focal partial tear along the deep margin the medial cord. 2. Moderate Achilles tendinosis without tear. 3. Moderate to severe peroneal tendinosis with suspicion of a small focal high-grade partial tear of the peroneus longus tendon distal to the peroneal tubercle. A complete rupture not evident. Electronically authenticated by: PATRICIA BARON Date: 03/19/2024 10:43 Dictated By: Patricia Baron M.D. Signed By: 03/19/24 1045 DD/ 1043 TD/TT: Physician Scribe: [facility] HealthcareRadiology Study observation (narrative)[facility] Ankle - right WO contrastOrdered By: Radiologist Radiology on [id number] Quietly Work Phone: t3 REVERSE, LC/MS/MSon [id number] REVERSE, LC/MS/MS 22 ng/dLNormal11-09Quest DiagnosticsComment on above:Order Comment: FASTING:NO FASTING: NOResult Comment: This test was developed and its analytical performance characteristics have been determined by [employer] [place], [place]. It has not been cleared or approved by the U.S. Food and Drug Administration. This assay has been validated pursuant to the CLIA regulations and is used for clinical purposes.Performed By: #### 90681, 899, 859, 866 #### [facility] [address], [address] [place] [address] Subcontract Manager: Bill Holman MD #### [phone] #### [facility] [phone] [facility] [place], [place] Subcontract Manager: Butch Brasher M.D.,PhDT3, FREE 79-82-1738Fksh T3 [Mass/Vol]3.6 pg/mLNormal2.3-4.2Quest DiagnosticsComment on above:Performed By: #### 95056, 899, 859, 866 #### [facility] [address], [address] [place] [address] Subcontract Manager: Bill Holman MD #### [id number] #### [facility] [phone] [facility] [place], [place] Subcontract Manager: Butch Brasher M.D.,PhDT3, TOTAL 27-38-3825Z2, NTWBS706 ng/pKOxmkbb64-977Nwtdb DiagnosticsComment on above:Performed By: #### 18336, 89, 859, 866 #### [facility] [address], [address] [place] [address] Subcontract Manager: Bill Holman MD #### [id number] #### [facility] [id number] [facility] [place], [place] Subcontract Manager: Butch Brasher M.D.,PhDT4, FREE 06-08-2796Bogt T4 [Mass/Vol]1.0 ng/dLNormal0.8-1.8Quest DiagnosticsComment on above:Performed By: #### 90657, 899, 859, 866 #### [facility] [place] [address], [address] [place] [address] Subcontract Manager: Bill Holman MD #### [phone] #### [facility] [phone] [facility] [place], [place] Subcontract Manager: Butch Brasher M.D.,PhDTSHon 96-78-2181YDM Qn2.43 m[IU]/L Normal0.40-4.50Quest DiagnosticsComment on above:Performed By: #### 69611, 899, 859, 866 #### [facility] [address] [place] [address], [address] [place] [address] Subcontract Manager: Bill Holman MD #### [id number] #### [facility]/[address] [place], [place] Subcontract Manager: Butch Brasher M.D.,PhDXR FOOT RT MIN 3Von 75-27-0461[address] [address] XRay Report Signed Patient: RATNA BAZAN MR#: [id number] : 1960 Acct:[id number] Age/Sex: 63 / F ADM Date: 01/01/24 Loc: RAD Attending Dr: Shaun Lee D.P.M. Ordering Physician: Shaun Lee D.P.M. Date of Service: 01/01/24 Procedure(s): XR foot RT min 3V Accession Number(s): [id number] cc: BRIAN PIÑA ; Shaun Lee D.P.M. The [address] [address] Patient Name: RATNA BAZAN MRN: [id number] date: 1960 Sex: F Assigned Patient Location: RAD Current Patient Location: Accession/Order Number: [id number] Exam Date: 01/01/2024 10:21 Report Date: 01/03/2024 07:16 At the request of: SHAUN LEE Procedure: XR foot RT min 3V PROCEDURE: XR foot RT min 3V COMPARISON: None. HISTORY: RIGHT FOOT PAIN FINDINGS: BONES:No acute fracture or dislocation. Moderate enthesopathic spurring of the calcaneus at the Achilles and plantar insertions SOFT TISSUES:Negative. No visible soft tissue swelling. EFFUSION:None visible. OTHER: Negative. XR/XR foot RT min 3V IMPRESSION: Mild degenerative changes Electronically authenticated by: JOCELIN GALLAGHER Date: 01/03/2024 07:16 Dictated By: Jocelin Gallagher M.D. Signed By: 01/03/24717 DD/ 5 TD/TT: Physician Scribe:TBHRadiology, Radiologist, - 01/03/2024 [place] [address] XRay Report Signed Patient: RATNA BAZAN MR#: [id number] : 1960 Acct:[id number] Age/Sex: 63 / F ADM Date: 01/01/24 Loc: RAD Attending Dr: Shaun Lee D.P.M. Ordering Physician: Shaun Lee D.P.M. Date of Service: 01/01/24 Procedure(s): XR foot RT min 3V Accession Number(s): [id number] cc: BRIAN PIÑA ; Shaun Lee D.P.M. The [place] [address] Patient Name: RATNA BAZAN MRN: [id number] date: 1960 Sex: F Assigned Patient Location: [facility] Current Patient Location: Accession/Order Number: [id number] Exam Date: 01/01/2024 10:21 Report Date: 01/03/2024 07:16 At the request of: SHAUN LEE Procedure: XR foot RT min 3V PROCEDURE: XR foot RT min 3V COMPARISON: None. HISTORY: RIGHT FOOT PAIN FINDINGS: BONES:No acute fracture or dislocation. Moderate enthesopathic spurring of the calcaneus at the Achilles and plantar insertions SOFT TISSUES:Negative. No visible soft tissue swelling. EFFUSION:None visible. OTHER: Negative. XR/XR foot RT min 3V IMPRESSION: Mild degenerative changes Electronically authenticated by: JOCELIN GALLAGHER Date: 01/03/2024 07:16 Dictated By: Jocelin Gallagher M.D. Signed By: 01/03/24717 DD/ 5 TD/TT: Physician Scribe: GUDEL[facility] HealthcareRadiology Study observation (narrative)[facility] HealthcareXR FOOT RT MIN 3VOrdered By: Radiologist Radiology on 15-62-1092[facility] Work Phone: Office Visiton [phone]-up [id number] Ratna Bazan 1960 F Date Provider Department Center 10/29/2023 JUSTINO CHAUHAN [facility] Family History Problem Relation Age of Onset Atrial fibrillation Father Other Father Heart failure Father Other Father Family Status - Relation Status Age at Father Level of Service:73513 HI OFFICE/OUTPATIENT NEW MODERATE MDM [address] [facility] HospitalCA ECHO DOPPLER COMPLETEon 55-69-8659[place] [address] Cardiology Report Signed Patient: RATNA BAZAN MR#: [id number] : 1960 Acct:[id number] Age/Sex: 63 / F ADM Date: 09/23/23 Loc: CARD Attending Dr: Romy Aceves M.D. Ordering Physician: Romy Aceves M.D. Date of Service: 09/23/23 Procedure(s): CA echo doppler complete Accession Number(s): [id number] cc: Romy Aceves M.D.; BRIAN PIÑA Patient Name: RATNA BAZAN MR#: [id number] : 1960 Exam Date: 09/23/2023 Ordering Doctor: DR ROMY ACEVES M.D. ECHOCARDIOGRAM REPORT PROCEDURE: CA ECHO DOPPLER COMPLETE INDICATIONS: Palpitations COMPARISON: None. DESCRIPTION: COMPLETE ECHOCARDIOGRAM Real-time transthoracic echocardiography with 2D, M-mode, spectral and color flow Doppler performed. QUALITY: Technical quality was good. LEFT VENTRICLE: Normal chamber size. Borderline left ventricular hypertrophy. LV EF: Global left ventricular systolic function is normal; visually estimated ejection fraction is 55 to 60%. No obvious wall motion abnormalities. DIASTOLIC: Normal diastolic function. ATRIAL SEPTUM: Visually appears intact. LEFT ATRIUM: Normal chamber size. RIGHT ATRIUM: Normal chamber size. RIGHT VENTRICLE: Normal chamber size. Normal right ventricular systolic function. TRICUSPID VALVE: Normal mobility and thickness. No stenosis with mild regurgitation. Doppler studies reveal mildly (35-45) elevated right sided pressures. RVSP 42 mmHg MITRAL VALVE: Normal mobility and thickness. No evidence of mitral valve stenosis. There is no mitral annular calcification. Trivial mitral regurgitation. AORTIC VALVE: Normal trileaflet appearance. No visible sclerosis. Normal leaflet mobility. No evidence of aortic valve stenosis. No aortic regurgitation. AORTIC ROOT: Normal diameter and appearance. Ascending aorta is normal in size. PULMONIC VALVE: Normal thickness and mobility. No stenosis. Trivial regurgitation. PERICARDIUM: Anterior free space; trivial effusion versus fat pad. IVC: IVC is dilated (2.2 cm) with no collapse. CONCLUSION: 1. Global left ventricular systolic function is normal; visually estimated ejection fraction is 55 to 60% 2. Normal right ventricular size and systolic function 3. Borderline left ventricular hypertrophy 4. Normal diastolic function 5. Mild tricuspid regurgitation 6. Mildly elevated right ventricular systolic pressure; RVSP 42 mmHg 7. Anterior free space; trivial effusion versus fat pad Adult Echocardiography Procedure Report Left Ventricle LVEDD (3.7 - 5.6 cm): 4.48 cm LVESD (2.2 - 4.0 cm): 2.98 cm LVIVS thickness (0.6 - 1.2 cm): 1.11 cm LVPW thickness (0.5 - 1.0 cm): 1.01 cm e': 0.07 m/s E - e': 10.71 LVOT Max Gradient: 2.87 mm[Hg] LVOT Area (cm2): 0.85 m/s Peak Velocity (LVOT): 0.85 m/s Mean Velocity (LVOT): 0.59 m/s LVOT Diameter 2.04 cm Left Atrium LA Volume Index (2D A2C): 32.44 ml/m2 Left Atrium Systolic Dimension: 3.18 cm Mitral Valve MV E to A Ratio: 0.75 Mitral Valve A-Wave Peak Velocity: 0.95 m/s Mitral Valve E-Wave Peak Velocity: 0.71 m/s Right Ventricle Aorta AO Root Diam: 3.43 cm Ascending Ao Diam: 2.98 cm Aortic Valve AoV Area (Peak Michael): 2.27 cm2, 2.27 cm2 AoV Area (VTI): 2.33 cm2, 2.33 cm2 Peak Velocity(Antegrade Flow): 1.21 m/s Peak Gradient(Antegrade Flow): 5.90 mm[Hg] Mean Velocity(Antegrade Flow): 0.85 m/s Mean Gradient(Antegrade Flow): 3.19 mm[Hg] Velocity Time Integral: 29.01 cm Tricuspid Valve Peak Velocity (Regurgitant Flow): 2.59 m/s Pulmonic Valve Mean Gradient: 2.45 mm[Hg] Mean Velocity: 0.72 m/s Peak Velocity: 1.05 m/s, 0.99 m/s Peak Gradient: 4.38 mm[Hg], 3.89 mm[Hg] Right Atrium Right Atrium Systolic Pressure: 36.48 ml, 36.48 ml Dictated by: Romy Aceves M.D. on 09/23/2023 at 15:37 Approved by: Romy Hammer (more content not included)...TBHRadiology, Radiologist, MD - 09/23/2023 [place] [address] Cardiology Report Signed Patient: RATNA BAZAN MR#: [id number] : 1960 Acct:[id number] Age/Sex: 63 / F ADM Date: 09/23/23 Loc: CARD Attending Dr: Romy Aceves M.D. Ordering Physician: Romy Aceves M.D. Date of Service: 09/23/23 Procedure(s): CA echo doppler complete Accession Number(s): [id number] cc: Romy Aceves M.D.; BRIAN PIÑA Patient Name: RATNA BAZAN MR#: [id number] : 1960 Exam Date: 09/23/2023 Ordering Doctor: DR ROMY ACEVES M.D. ECHOCARDIOGRAM REPORT PROCEDURE: CA ECHO DOPPLER COMPLETE INDICATIONS: Palpitations COMPARISON: None. DESCRIPTION: COMPLETE ECHOCARDIOGRAM Real-time transthoracic echocardiography with 2D, M-mode, spectral and color flow Doppler performed. QUALITY: Technical quality was good. LEFT VENTRICLE: Normal chamber size. Borderline left ventricular hypertrophy. LV EF: Global left ventricular systolic function is normal; visually estimated ejection fraction is 55 to 60%. No obvious wall motion abnormalities. DIASTOLIC: Normal diastolic function. ATRIAL SEPTUM: Visually appears intact. LEFT ATRIUM: Normal chamber size. RIGHT ATRIUM: Normal chamber size. RIGHT VENTRICLE: Normal chamber size. Normal right ventricular systolic function. TRICUSPID VALVE: Normal mobility and thickness. No stenosis with mild regurgitation. Doppler studies reveal mildly (35-45) elevated right sided pressures. RVSP 42 mmHg MITRAL VALVE: Normal mobility and thickness. No evidence of mitral valve stenosis. There is no mitral annular calcification. Trivial mitral regurgitation. AORTIC VALVE: Normal trileaflet appearance. No visible sclerosis. Normal leaflet mobility. No evidence of aortic valve stenosis. No aortic regurgitation. AORTIC ROOT: Normal diameter and appearance. Ascending aorta is normal in size. PULMONIC VALVE: Normal thickness and mobility. No stenosis. Trivial regurgitation. PERICARDIUM: Anterior free space; trivial effusion versus fat pad. IVC: IVC is dilated (2.2 cm) with no collapse. CONCLUSION: 1. Global left ventricular systolic function is normal; visually estimated ejection fraction is 55 to 60% 2. Normal right ventricular size and systolic function 3. Borderline left ventricular hypertrophy 4. Normal diastolic function 5. Mild tricuspid regurgitation 6. Mildly elevated right ventricular systolic pressure; RVSP 42 mmHg 7. Anterior free space; trivial effusion versus fat pad Adult Echocardiography Procedure Report Left Ventricle LVEDD (3.7 - 5.6 cm): 4.48 cm LVESD (2.2 - 4.0 cm): 2.98 cm LVIVS thickness (0.6 - 1.2 cm): 1.11 cm LVPW thickness (0.5 - 1.0 cm): 1.01 cm e': 0.07 m/s E - e': 10.71 LVOT Max Gradient: 2.87 mm[Hg] LVOT Area (cm2): 0.85 m/s Peak Velocity (LVOT): 0.85 m/s Mean Velocity (LVOT): 0.59 m/s LVOT Diameter 2.04 cm Left Atrium LA Volume Index (2D A2C): 32.44 ml/m2 Left Atrium Systolic Dimension: 3.18 cm Mitral Valve MV E to A Ratio: 0.75 Mitral Valve A-Wave Peak Velocity: 0.95 m/s Mitral Valve E-Wave Peak Velocity: 0.71 m/s Right Ventricle Aorta AO Root Diam: 3.43 cm Ascending Ao Diam: 2.98 cm Aortic Valve AoV Area (Peak Michael): 2.27 cm2, 2.27 cm2 AoV Area (VTI): 2.33 cm2, 2.33 cm2 Peak Velocity(Antegrade Flow): 1.21 m/s Peak Gradient(Antegrade Flow): 5.90 mm[Hg] Mean Velocity(Antegrade Flow): 0.85 m/s Mean Gradient(Antegrade Flow): 3.19 mm[Hg] Velocity Time Integral: 29.01 cm Tricuspid Valve Peak Velocity (Regurgitant Flow): 2.59 m/s Pulmonic Valve Mean Gradient: 2.45 mm[Hg] Mean Velocity: 0.72 m/s Peak Velocity: 1.05 m/s, 0.99 m/s Peak Gradient: 4.38 mm[Hg], 3.89 mm[Hg] Right Atrium Right Atrium Systolic Pressure: 36.48 ml, 36.48 ml Dictated by: Romy Aceves M.D. on 09/23/2023 at 15:37 Approved by: Romy Aceves M.D. on 09/23/2023 at 15:42 Dictated By: Romy Aceves M.D. Signed By: 09/23/23 1543 DD/ 1542 TD/TT: Physician Scribe: [facility] HealthcareRadiology Study observation (narrative)[facility] CenterCA ECHO DOPPLER COMPLETEOrdered By: Radiologist Radiology on [id number] Work Phone: Office Visiton [phone]-up [id number] Ratna Bazan 1960 F Date Provider Department Center 08/19/2023 Chuy-ROMY ACEVES [facility] Family History Problem Relation Age of Onset Atrial fibrillation Father Other Father Heart failure Father Other Father Family Status - Relation Status Age at Father Level of Service:56686 HI OFFICE/OUTPATIENT NEW MODERATE MDM 45 MINUTESNoMartin Memorial HospitalOrders Onlyon [id number] [id number] Ratna Bazan 1960 F Date Provider Department Center 08/19/2023 DAR GREGORIO [facility] Family History Problem Relation Age of Onset Atrial fibrillation Father Other Father Heart failure Father Other Father Family Status - Relation Status Age at FatherNormalUniversity of [facility] NorthwestCA HOLTER MONITOR 2-7 DAYSon 72-26-8865[place] [address] Cardiology Report Signed Patient: RATNA BAZAN MR#: [id number] : 1960 Acct:[id number] Age/Sex: 62 / F ADM Date: 06/10/23 Loc: CARD Attending Dr: BRIAN PIÑA Ordering Physician: BRIAN PIÑA Date of Service: 06/10/23 Procedure(s): CA holter montior 2-7 days Accession Number(s): [id number] cc: BRIAN PIÑA [facility] Test Date: 2023-06-20 Pat Name: RATNA BAZAN Department: Room: - 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1960 Requested By: BRIAN PIÑA Order Number: [id number] Reading MD: VINICIO GARCIA Interpretive Statements Predominant rhythm is sinus with average rate of 82 bpm Tachycardia (17% burden) - max rate of 191 bpm (PSVT) - 17 episodes of PSVT w/ fastest rate of 191 bpm and longest duration of 17 beats - longest episode of 3h 1min 4sec with rates between 112-141 bpm Bradycardia - min rate of 37 bpm - longest episode of 44min 55sec with rates between 50-57 bpm Ventricular ectopy - 17,865 total, 5% burden - 142 couplets - 17,717 PVC - 1 episode of bigeminy NSVT - 2 episodes of 3 beat VT Patient triggered events: 2 - not associated with symptoms - associated with sinus tachycardia, PVC, PAC with rates of 144 and 131 bpm Impression: Predominant rhythm is sinus with average rate of 82 bpm Fastest rate of 191 bpm (PSVT) and slowest rate of 37 bpm 17% tachycardia burden overall 17,717 PVC, 142 couplets, 1 bigeminy 2 episodes of 3 beat VT No atrial fibrillation No pauses or blocks Electronically Signed On 06-21-2023 7:11:07 EDT by VINICIO GARCIA Dictated By: Vinicio Garcia D.O. Signed By: 06/21/23 0706/21/23 0711 DD/ 1450 TD/TT: Physician Scribe:PAYTONadiolángel Radiologist, - 06/21/2023 [place] [address] Cardiology Report Signed Patient: RATNA BAZAN MR#: [id number] : 1960 Acct:[id number] Age/Sex: 62 / F ADM Date: 06/10/23 Loc: CARD Attending Dr: BRIAN PIÑA Ordering Physician: BRIAN PIÑA Date of Service: 06/10/23 Procedure(s): CA holter montior 2-7 days Accession Number(s): [id number] cc: BRIAN PIÑA The [facility] Test Date: 2023-06-20 Pat Name: RATNA BAZAN Department: Room: - 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1960 Requested By: BRIAN PIÑA Order Number: [id number] Reading MD: VINICIO GARCIA Interpretive Statements Predominant rhythm is sinus with average rate of 82 bpm Tachycardia (17% burden) - max rate of 191 bpm (PSVT) - 17 episodes of PSVT w/ fastest rate of 191 bpm and longest duration of 17 beats - longest episode of 3h 1min 4sec with rates between 112-141 bpm Bradycardia - min rate of 37 bpm - longest episode of 44min 55sec with rates between 50-57 bpm Ventricular ectopy - 17,865 total, 5% burden - 142 couplets - 17,717 PVC - 1 episode of bigeminy NSVT - 2 episodes of 3 beat VT Patient triggered events: 2 - not associated with symptoms - associated with sinus tachycardia, PVC, PAC with rates of 144 and 131 bpm Impression: Predominant rhythm is sinus with average rate of 82 bpm Fastest rate of 191 bpm (PSVT) and slowest rate of 37 bpm 17% tachycardia burden overall 17,717 PVC, 142 couplets, 1 bigeminy 2 episodes of 3 beat VT No atrial fibrillation No pauses or blocks Electronically Signed On 06-21-2023 7:11:07 EDT by VINICIO GARCIA Dictated By: Vinicio Garcia D.O. Signed By: 06/21/23 0706/21/23 0711 DD/ 1450 TD/TT: Physician Scribe: GUDELIA HarrisCA HOLTER MONITOR 2-7 DAYSOrdered By: Radiologist Radiology on 72-70-5844[facility] Work Phone: ca HOLTER MONITOR 2-7 DAYSon 58-52-1113Exjswwfnm Study observation (narrative)[facility]S HealthcareMG MAMM SCREEN 3D LUCIEN CADon 80-33-7034CE MAMM SCREEN 3D LUCIEN CADPatient: RATNA BAZAN Exam Date: 07/16/2022 : 1960 Gender:F Ordering : DR BRIAN PIÑA . Admission #: [id number] Family : Order #: [id number] CLICK HERE TO VIEW EXAM RADIOLOGY REPORT [...] breast cancer at age 49. LOCATION: [facility] BREAST COMPOSITION: Scattered areas fibroglandular density. [...] by: Tigre Muñoz M.D. on 07/16/2022 at 12:58[facility]eter[facility] Health AdministrationREVERSE T3on 13-43-7890Xhvgcdl T3, Serum15.9 ng/dLNormal9.2-24.1[facility] HospitalComment on above:Result Comment: This test was developed and its performance characteristics determined by [employer]. It has not been cleared or approved by the Food and Drug Administration.Performed By: #### REVRT3 #### [facility] [address] [place] [address] Dr. Eva HurtT3, TOTAL (TRIIODOTHYRONINE)on 28-02-9844R8, MNJON296 ng/dLNormal 71-180[facility] HospitalComment on above:Performed By: #### M5OZUMJ #### [facility] [address] [place] [address] Dr. Eva Gaming T3on 74-13-6977GRTQ T33.14 pg/mlLNormal2.18-3.98[facility] HospitalComment on above:Performed By: #### TSH, FT3 #### [facility] [address] [place] [address] Dr. Eva Gaming T4on 73-25-3882Byqa T4 [Mass/Vol]0.97 ng/dLNormal0.76-1.46 [facility] HospitalComment on above:Performed By: #### FT4 #### [facility] [address] [place] [address] Dr. Eva HurtTSHoras 88-21-5684WDR9.881 uIU/mLNormal0.358-3.740[facility] HospitalComment on above:Performed By: #### TSH, FT3 #### [facility] [address] [place] [address] Dr. Eva HurtXR foot RT min 3V*on 61-89-0377OR foot RT min 3V*[facility] Main [place] [address] [place] [address] XRay Report Signed Patient: Ratna Bazan MR#: [id number] : 1960 Acct:[id number] Age/Sex: 61 / F ADM Date: 01/12/22 Loc: XDUCLY Room: Type: [facility] CLI Attending Dr: Hiral NORTON Copies to: CIERRA [...] PROCESS. Impression dictated by: Fabian De Jr., D.ORhona01/12/2022 5:26 PM Dictation Location: [place] [address] Transcribed By: [facility] 01/12/22 172 Dictated By: Fabian De Jr, DO 01/12/221724 Signed By: 01/12/22 172NoMercy Health Perrysburg HospitalXR foot RT min 3V*[facility] [employer] Other XR foot RT min 3V*[facility] [employer] Other XR foot RT min 3V*[address] [place] [address] [employer] Other XR foot RT min 3V*[place] [address] [place] [address] [employer] Other XR foot RT min 3V*[facility] [employer] Other XR foot RT min 3V*[facility] [employer] Other XR foot RT min 3V*Patient: Ratna Bazan MR#: [id number] [employer] Other XR foot RT min 3V*[place] [employer] Other XR foot RT min 3V*: 1960 Acct:[id number] [employer] Other XR foot RT min 3V*Age/Sex: 61 / F ADM Date: 01/12/22 [place] [employer] Other XR foot RT min 3V*Loc: XDUCLY Room: Type: [facility] [employer] Other XR foot RT min 3V*Attending Dr: Hiral Pearl [facility] [employer] Other XR foot RT min 3V*Copies to: RAJAN [facility] [employer] Other XR foot RT min 3V*Ordering Provider: [facility] [employer] Other XR foot RT min 3V*Date of Service: 01/12/22[place] [employer] Other XR foot RT min 3V* XR/XR foot RT min 3V*: RIGHT FOOT [facility] [employer] Other XR foot RT min 3V*RIGHT FOOT - [address] [place] [address] [employer] Other XR foot RT min 3V*CLINICAL HISTORY: Pain and bruising after injury today.[employer] Other XR foot RT min 3V*COMPARISON: [facility] [employer] Other XR foot RT min 3V*FINDINGS:[employer] Other XR foot RT min 3V*No focal soft tissue abnormality. No acute bony process is seen.[employer] Other XR foot RT min 3V* XR/XR foot RT min 3V*[employer] Other XR foot RT min 3V*IMPRESSION:[employer] Other XR foot RT min 3V*NO ACUTE BONY PROCESS.[employer] Other XR foot RT min 3V*Impression dictated by: Fabian De Jr., D.ORhona01/12/2022 5:26 [facility] [employer] Other XR foot RT min 3V*Dictation Location: IGWRF-BE-14Vksuo [employer] Other XR foot RT min 3V*Transcribed By: ARSENIO 01/12/22 172 [employer] Other XR foot RT min 3V*Dictated By: Fabian De Jr, 01/12/[address] [place] [address] [employer] Other XR foot RT min 3V*Signed By:[employer] Other XR foot RT min 3V*01/12/[address] [place], [place] [address] Other Fren T3on 62-07-1665IR71.91 pg/mLNormal2.00-4.40 [facility] SpecialistComment on above:Performed By: #### TSH, FT4, FT3 #### [facility] [address] [place], [place] [address]Hlkb T4on 54-91-8102Yofa T4 [Mass/Vol]0.94 ng/dLNormal 0.80-1.80NortMarion Hospital SpecialistComment on above:Performed By: #### TSH, FT4, FT3 #### [facility] [address] [place], [place] [address] - T3 TOTALon 74-33-7593R3, VLBCH349 ng/jBPdwxig19-930 [facility] SpecialistComment on above:Order Comment: [facility] Testing performed at: QPT, [facility], [address] [place] [address], [address] [place] [address], [id number], [employer]: Bill Holman MD [facility] Collection Date/Time: [facility] Results Received Date/Time: [facility] Reported Date/Time: [id number] By: #### [id number], 859X #### [facility] Default [address] [place], [place] [address]M - T3,REVERSE,LC/MS/MSon 37-40-8091J7 REVERSE, LC/MS/MS19 ng/dL Normal8-25Northern [facility]lesex HospitalComment on above:Order Comment: [facility] Testing performed at: [facility], [employer], [address], [place], [place], , [employer] Maker: Butch Brasher M.D.,PhD [facility] Collection Date/Time: [id number] [facility] Results Received Date/Time: [facility] Reported Date/Time: [id number] Comment: This test was developed and its analytical performance characteristics have been determined by [employer] [place], [place]. It has not been cleared or approved by the U.S. Food and Drug Administration. This assay has been validated pursuant to the CLIA regulations and is used for clinical purposes.Performed By: #### 62792, 859X #### [facility] Default [address] [place], [place] [address]DNFry 54-19-7505ZXZ5.340 uIU/mLNormal0.400-4.500Northern [facility]lesex HospitalComment on above:Performed By: #### TSH, FT4, FT3 #### [facility] [address] [place], [place] [address] Vital Signs Date TimeVital SignValuePerforming QthdzotsaHqdwcynp76-95-4836 10:51-0400Heart rpet980 /minEsamantha Piña MD Work Phone: [facility] CenterIfrimewrib09-90-3349 10:12-0400Body fyojhy984.6 Edd Piña MD Work Phone: [facility] CenterXovacezmii48-05-9981 10:12-0400Body mass index (BMI) [Ratio]48.91 kg/s1SnjloaBrian Piña MD Work Phone: [facility] CenterDdrxwmtlvc83-09-1384 10:12-0400Body nkedpa916.44 kgBrian Piña MD Work Phone: [facility] CenterErvwlrqydk46-88-8553 10:12-0400Diastolic blood cehtoydv52 mm[Hg]Brian Piña MD Work Phone: [phone] CenterWwhadtfgnj82-88-8277 10:12-8545DfK4% (BldA) [Mass fraction]97 %Brina Piña MD Work Phone: [phone] [place], [place] [address]Hfhxmsvxtv66-09-7603 10:12-0400Systolic blood ysakgtrs077 mm[Hg]Brian Piña MD Work Phone: [phone] [place], [place] [address]Wveicpcgbx30-21-7957 09:33-0400Body bfywlv884.6 cmEsamantha Piña MD Work Phone: [phone] [place] [address]-18-2024 09:33-0400Body mass index (BMI) [Ratio]47.61 kg/e3NywsogBrian Piña MD Work Phone: [phone] [place] [address]-18-2024 09:33-0400Body rhawtj692.81 kgBrian Piña MD Work Phone: [phone])[facility] [place], [place] [address]Bbeqjpglwm94-94-0866 09:33-0400Diastolic blood mm[Hg]Brian Piña MD Work Phone: [phone] [place] [address]-18-2024 09:33-0400Heart rate65 /min Brian Piña MD Work Phone: [phone] [place], [place] [address]Ktgbwjvqoh67-37-2394 09:33-1276HrH5% (BldA) [Mass fraction]98 %Brian Piña MD Work Phone: [phone])[facility] [place] [address]-18-2024 09:33-0400Systolic blood fnmzqvde431 mm[Hg]Brian Piña MD Work Phone: [phone] [place], [place] [address]Mtzvrxawgk89-12-3202 17:40-0400Body zqomav966.64 [place] [employer] Other [employer] Other 10-28-2022 17:40-0400Body kqoajosjrjy54.1 [degF]Hiral [facility] Other [employer] Other 10-28-2022 17:40-0400Diastolic blood guvsqccn19 mm[Hg] Hiral Pearl Other [employer] Other 10-28-2022 17:40-0400Respiratory rate18 /minHiral Pearl Other [employer] Other 10-28-2022 17:40-3265OlG6% (BldA) [Mass fraction]100 % Hiral Pearl Other [employer] Other 10-28-2022 17:40-0400Systolic blood mm[Hg] Hiral Pearl Other [employer] Other Encounters Encounter DateEncounter TypeCare ProviderFacilityStart: 01-06-2025 End: 52-32-2947Meippoi encounter procedureBrian Piña MD Work Phone: [phone] Roberts StreetComment on above:Welcome to Medicare preventive visit (Primary Dx); Advance directive in chart; Encounter for screening for other disorder; Screening for alcohol problem; Screening for osteoporosis; Menopause; Screening mammogram, encounter for; Primary pulmonary hypertension (HCC); Pulmonary fibrosis, unspecified (HCC); Chronic restrictive lung disease; Morbid obesity due to excess calories (CMS-HCC); BMI 45.0-49.9, adult (CMS-HCC)Start: 01-06-2025 End: 62-97-8481Inxiupr encounter Diomedes Piña MD Work Phone: [facility] Work Phone: Start: 01-06-2025 End: 75-17-4310afuxdruhkbYKAIHY J HEMEYERNot AvailableStart: 09-22-2024 End: 99-84-8610gonakqlocqQQTVFV J HEMEYERNot AvailableStart: 09-22-2024 End: 49-34-6512Ayiybr outpatient visit 15 minutesEdsarabjit Piña MD Work Phone: [facility] CI FM 100Comment on above:Adult situational stress disorder (Primary Dx); ESS (euthyroid sick syndrome); Chronic fatigueStart: 09-22-2024 End: 94-39-2346Bkfoba Jairo Piña MD Work Phone: [facility] CI FM 100Start: 09-22-2024 End: 93-89-6644Isknib Jairo Piña MD Work Phone: [facility] CI FM 100Start: 05-26-2024 End: 84-25-4668oonvqcdrifKUBDYD J HEMEYERNot AvailableStart: 05-19-2024 End: 22-71-9353ezxbqhuwetESAG [facility] Healthtart: 03-19-2024 End: 81-11-1865Bnvidtjsp Result EncounterGeneric External Data ProviderNOMS External Department UnsolicitedStart: 03-19-2024 End: 91-90-0175Ihsjhznpd Result EncounterGeneric External Data ProviderNOMS External Department UnsolicitedStart: 02-13-2024 End: 56-62-7550HnrrvmLoowgr J Hemeyer MD Work Phone: [facility] CI FM 100Comment on above:ESS (euthyroid sick syndrome); Chronic fatigueStart: 01-03-2024 End: 67-31-5523Smdntmwde Result EncounterGeneric External Data ProviderNOMS External Department UnsolicitedStart: 01-03-2024 End: 40-85-1971Isivaxdpj Result EncounterGeneric External Data ProviderNOMS External Department UnsolicitedStart: 12-04-2023 End: 32-16-0291Ybtylt Jairo Piña MD Work Phone: [facility] CI FM 100Start: 12-04-2023 End: 94-08-3550Dmliqn Jairo Piña MD Work Phone: [facility] CI FM 100Start: 12-04-2023 End: 33-73-2313Uflnas outpatient visit 25 minutesEdsarabjit Piña MD Work Phone: [facility] CI FM 100Comment on above:Benign essential hypertension (CMS/HCC) (Primary Dx); Hypertensive nephropathy (CMS/HCC); CKD (chronic kidney disease) stage 2, GFR 60-89 ml/min; Microalbuminuria; Mixed hyperlipidemia (CMS/HCC); Insulin resistance; VT (ventricular tachycardia) (CMS/HCC); Polypharmacy; Morbid obesity due to excess calories (CMS/HCC); Venous (peripheral) insufficiency; Plantar fasciitis of right footStart: 10-29-2023 End: 81-72-4012kwdfgbkeqiUCBTOhioHealth Shelby Hospitaltart: 09-23-2023 End: 99-90-9231Vxjgrbfdk Result EncounterGeneric External Data ProviderNOMS External Department UnsolicitedStart: 09-23-2023 End: 19-07-5079Dppcubrcc Result EncounterGeneric External Data ProviderNOMS External Department UnsolicitedStart: 08-19-2023 End: 81-56-3272ogsvnpvyykYOLGAdams County Regional Medical Centertart: 06-20-2023 End: 20-71-8988Faarknxpz Result Amanuel Piña MD Work Phone: noms External Department UnsolicitedStart: 06-20-2023 End: 76-31-7810Yxpqvllec Result Amanuel Piña MD Work Phone: noms External Department UnsolicitedStart: 07-16-2022 End: 00-62-8107kzrvahsgiwKB EDWARD HEMEYER .Facility:M7Yovxc: 05-08-2022 End: 46-66-9999ttvdfnibytAC EDWARD HEMEYER .Facility:G5Brpvj: 01-12-2022 End: 00-85-5897Uhrwwdh encounter procedurePHYSICIAN NO [facility] ClydeStart: 01-12-2022 End: 27-18-3436sllzmduswxTBKIHVZNC NO [facility] Work Phone: Start: 15-59-3620Rnacnw outpatient visit 15 minutes Hiral [facility] ClydeStart: 04-02-2020 End: 32-78-6864Jonpdgu encounter procedureStepvazquez VelezKettering [facility] Daniel Procedures DateProcedureProcedure DetailPerforming ClinicianStart: 96-18-1684Lms any jt lower extrem w/o contrast matrlGeneric External Data ProviderStart: 04-48-8016TK FOOT RT MIN 3VGeneric External Data ProviderStart: 57-30-7736BI ECHO DOPPLER COMPLETEGeneric External Data ProviderStart: 49-81-9959XR HOLTER MONITOR 2-7 DAYSBrian Piña MD Work Phone: Start: 08-20-2022H/O: hysterectomyHistory of hysterectomyBrian Piña MD Work Phone: Start: 22-44-0694LyibunefemqActwhl Hemeyer MD Work Phone: Start: 81-35-6357A-ray of right footPHYSICIAN NO FAMILYStart: 25-53-0966T-ray of left elbow, three or more viewsStadithyaalan Velez Start: 67-78-0603LtmislnbssxYpcrsh Hemeyer MD Work Phone: Plan of Treatment DateCare ActivityDetailAuthorStart: 63-74-6784Hfixsejem for malignant neoplasm of colonNOMS HealthcareStart: 10-22-2026Medicare Annual Wellness (AWV)Medicare Annual Wellness (AWV)[facility]OM[facility] HealthcareStart: 02-03-2025 End: 37-52-3712Ybpontt encounter bxwogkxfn87/19/2025 10:00 AM EST Office Visit [facility] Medicine [address] [place] [address] Brian Piña MD [address] [place], [place] [phone] (Work) (Fax)[facility] Daniel 100 Family MedicineStart: 01-06-2025 End: 65-89-3843VDB Breast - bilateral screeningBilateral screening mammogram with tomosynthesis Imaging Routine Screening mammogram, encounter forExpected: 01/06/2025 (Approximate), Expires: 03/08/2026[facility] Work Phone: Comment on above:Expected: 01/06/2025 (Approximate), Expires: 03/08/2026Start: 01-06-2025 End: 24-22-1001LDK Skeletal system Views for bone densityDEXA bone density Imaging Routine Screening for osteoporosis Menopause Expected: 01/06/2025, Expires: 01/06/2026NOMS HealthcareComment on above:Expected: 01/06/2025, Expires: 01/06/2026Start: 86-32-6785GCPCD-19 Vaccine ()COVID- 19 Vaccine ()NOMS HealthcareStart: 28-92-2817Cdfrbtjei vaccinationInfluenza Vaccine (#1)NOMS HealthcareStart: 05-26-2024 End: 89-08-9519Vqqvvbe encounter procedureNOMS CI FM 100Start: 02-03-2024 End: 42-26-7764Aildawf encounter cwaxleaeh11/18/2024 9:30 AM EST Office Visit [facility] [address] [address] Brian Piña MD [address] [place] [address] (Fax)[facility] CI FM 100Start: 12-04-2023 End: 48-46-4202Xdulqvg encounter yytxjdkjl62/18/2024 9:30 AM EDT Office Visit [facility] [address] [address] Brian Piña MD [address] [place] [address] (Fax) Benign essential hypertension (CMS/HCC); Hypertensive nephropathy (CMS/HCC); CKD (chronic kidney disease) stage 2, GFR 60-89 ml/min; Microalbuminuria; Mixed hyperlipidemia (CMS/HCC); Insulin resistance; Reactive hypoglycemia; Polypharmacy; Morbid obesity due to excess calories (CMS/HCC)[facility] CI FM 100Comment on above:Benign essential hypertension (CMS/HCC); Hypertensive nephropathy (CMS/HCC); CKD (chronic kidney disease) stage 2, GFR 60-89 ml/min; Microalbuminuria; Mixed hyperlipidemia (CMS/HCC); Insulin resistance; Reactive hypoglycemia; Polypharmacy; Morbid obesity due to excess calories (CMS/HCC)Start: 67-63-0335Smrpcexkd vaccinationInfluenza Vaccine (#1)[facility] HealthcareStart: 32-35-9841Gbplagiwt for malignant neoplasm of breastMammogramNOMS HealthcareStart: 02-93-0907Lcyndlvor for malignant neoplasm of colonFOBTNOMS HealthcareStart: 73-11-4099Wsroahanj B Vaccines (3 of 3 - 19+ 3-dose series)Hepatitis B Vaccines (3 of 3 - 19+ 3-dose series)[facility] HealthcareStart: 06-76-0746LMgX/Tdap/Td Vaccines (2 - Td or Tdap) DTaP/Tdap/Td Vaccines (2 - Td or Tdap)[facility] HealthcareStart: 89-10-8267TSW Vaccines (2 of 3 - Adult catch-up series)IPV Vaccines (2 of 3 - Adult catch-up series)[facility] HealthcareStart: 57-86-0636Onzajqbjpxyi Vaccine: 65+ Years (1 of 2 - PCV)Pneumococcal Vaccine: 65+ Years (1 of 2 - PCV)[facility] HealthcareStart: 60-04-9365JWH Vaccines (1 of 1 - Standard series)MMR Vaccines (1 of 1 - Standard series)[facility] HealthcareStart: 05-30-1960Medicare Annual Wellness (AWV)Medicare Annual Wellness (AWV)[facility] HealthcareStart: 71-11-6756Zahnenfpn for malignant neoplasm of colonNOMS Healthcare Immunizations Immunization DateImmunizationNotesCare DbqodxpmJzbsdvee40-64-5139tzfrnaqey, injectable, quadrivalent, preservative freeBrian Piña MD Work Phone: [facility] Jtqeapvonm45-04-6397jofffsleo virus vaccine, unspecified formulationBrian Piña MD Work Phone: [facility] CenterWwqrkeicvb05-43-9433xaasduzvtnb influenzae type b conjugate and Hepatitis B vaccineEdward Hemeyer MD Work Phone: [facility] CenterFokfezfqzf70-55-9299zcisofquzuf influenzae type b conjugate and Hepatitis B vaccineBrian Piña MD Work Phone: [facility] CenterYjhtqmtqyd82-42-3439jxljrnzard vaccine, unspecified formulationBrian Piña MD Work Phone: noM[facility] at St[facility] JosephJliwqjdupw55-44-4198pvswtor toxoid, reduced diphtheria toxoid, and acellular pertussis vaccine, adsorbedEdsarabjit Piña MD Work Phone: [facility] Healthcare Payers DatePayer CategoryPayerPolicy [id number] Member Subscriber Plan / Payer (Effective 2024-Present) Name: Ratna Bazan Relation to Subscriber: Spouse Name: ABBY BAZAN Date of : 1957 (Home) Address: [address] [place] [address] Payer ID: Not on file Type: Not on file Address: [address] [place] [id number] [id number] 2025[place] [id number] [id number] [id number] 2023Private Health [id number]xrme [employer]ITS [id number] 2022-Present [phone] [address] [address] [place] [id number] 08-09-1471Thoe-kav01w5g49v-2e6t-2r07-099x-h78gx5[id number] 2.16.840.7.188819.28[id number] 2..840.1.016050.3.579.2.593 89-80-0990Ycfjrne7758038 2..840.1.310255.3.579.2.6[id number] 2.16.840.1.961375.3.57[id number] 2..840.1.946366.3.579.2.8[id number] 2.840.1.111202.3.57[id number] 2.840.1.732192.3.579.2.531 Social History DateTypeDetailFacilityTobacco smoking status NHISUnknown if ever smokedKettering Health Springfield CtrStart: 17-57-7056Jya Assigned At BirthFeAvita Health Systemtart: 12-04-2023 End: 20-65-4105Quh Assigned At BirthNOAR HealthcareStart: 57-10-3078Puezked smoking status NHISNever smoked tobaccoNOAR HealthcareStart: 20-37-1663Yorzdqh use and exposureSmokeless tobacco non-userNOAR HealthcareStart: 08-07-2023 End: 59-64-3220Wgtoumrxa beverage intakeLifetime non-drinker (finding)[facility] HealthcareStart: 12-04-2023 End: 37-13-7929Izvsyxf of Social functionNOAR HealthcareStart: 43-72-2972Lri often do you need to have someone help you when you read instructions, pamphlets, or other written material from your doctor or pharmacy [SILS]Never [facility] HealthcareWithin the last year, have you been afraid of your partner or ex-partner?NoNOMS HealthcareDo you belong to any clubs or organizations such as latter-day groups, [employer], [employer] or athletic groups, or school groups?YesNOMS HealthcareAre you now , , , , never or living with a partner?MarriedNOMS HealthcareHow often to you have a drink containing alcohol?NeverNOMS Healthcare(I/We) worried whether (my/our) food would run out before (I/we) got money to buy more.Never trueN[facility]S Healthcare Start: 51-39-7733Cgtjmuy CommentCaffeine intake: 2-3 cups per dayNOAR Healthcare Start: 44-91-7077Oiv assigned at birthNot on fileNOMS HealthcareDo you feel stress - tense, restless, nervous, or anxious, or unable to sleep at night because yourmind is troubled all the time - these days [OSQ]Only a littleNOAR HealthcareStart: 47-58-0635Qeriicqtf beverage intakeEx-drinker (finding)[facility] Healthcare Goals DatePatient GoalDesired Activity/State Functional Status YugqXimxllnczgXypohpStwusgmn58-57-2698Imgeru interest or pleasure in doing thingsNot at all 01/05/2025 11:15 AM EDT Mychart, Generic Not at allSSM Saint Mary's Health CenterHgtymoeutj84-46-4128Szcaa score [AUDIT-C]0 01/05/2025 11:12 AM EDT Mychart, GenericNOAR Umuxgayfde05-58-6953Opv often do you have a drink containing alcohol?Never 01/05/2025 11:12 AM EDT Ezequiel Generic FrannySSM Saint Mary's Health Center 89-20-4745Xoqonpjoij statusPatient does not drink 01/05/2025 11:12 AM EDT Ezequiel Generic Patient does not drinkSSM Saint Mary's Health CenterClqcyqwykx62-29-0137Zdm often do you have 6 or more drinks on 1 occasion?Never 01/05/2025 11:12 AM EDT Ezequiel Generic FrannySSM Saint Mary's Health CenterLagvyhctwo24-81-7659Idiexff Health Questionnaire 2 item (PHQ- 2) [Reported][facility] Clinical Notes 12-11-2021 to 01-06-2025 Note Date & LlfyQvsnLkcwzpox31-72-4878 History of Present illness Narrative* Brian Piña MD - 01/06/2025 10:00 AM EDT Images from the original note were not included. Ratna Bazan is a 64 y.o. female presents with chief complaint of Annual Exam HPI: History of Present Illness I have reviewed and reconciled the history and medication list with the patient today. CURRENT PCP/CARE TEAM: Patient Care Team: Brian Piña MD as PCP - General (Family Medicine) [...] friends, or caretakers Three Word Registration: Banana, [place], Chair Clock Drawing: Normal Clock - 2 [...] Wt 303 lb SpO2 97% BMI 48.91 kg/m OB Status Hysterectomy Smoking Status Never BSA 2.53 m BP Readings from Last 3 Encounters: 01/06/25 [...] 11. Morbid obesity due to excess calories ([facility]) Chronic problem that we have discussed on multiple previous occasions to no avail. A major portion of her chronic restrictive lung disease. 12. BMI 45.0-49.9, adult (CMS-[facility] [facility]) Chronic problem defines the morbid obesity. [1] Past Medical History: Diagnosis Date Acute kidney injury Allergic Anemia 1979 s Chest pain 12/2015 Chronic headaches Diffuse cystic [...] Other Reaction(s): intolerant diarrhea documented in this encounterSSM Saint Mary's Health [id number] History of Present illness Narrative* Brian Piña MD - 09/22/2024 4:00 PM EDT Images from the original note were not included. Patient ID: Ratna Bazan is a 64 y.o. female who presents for: Pt wants to discuss some thyroid issues with . She was previously dx with ESS but has not been onher medication. She was given 90 days back in March but has not been dispensed since. She states she had stuff going on and had not gotten labs and refilled the medication and she is looking for something more natural. She states she always felt like she was a slave to the medication having to take it at certain times and get labs at a certain times. Review of Systems Constitutional: Positive for fatigue. Negative for appetite change. HENT: Negative for trouble swallowing and voice change. Cardiovascular: Negative for palpitations. Musculoskeletal: Negative for arthralgias and myalgias. Psychiatric/Behavioral: Positive for sleep disturbance. The patient is not nervous/anxious. Endocrine: Negative for cold intolerance and heat intolerance. Objective Appearance: Well-groomed, in no acute distress Abnormal body movements: None Affect: Appropriate and appears to be Mildly expansive Attention: Good Attitude: Cooperative Degree of awareness of surroundings: Grossly within normal limits Impulse control: Appears to be fair Insight: Appears to be poor to fair Fund of knowledge; adequate Judgment: Appears to be poor to fair Perceptual disorders: No perceptual disorders noted Psychomotor activity: Within normal range Speech: Clear, normal variability and rate, although sometimes pressured Thought content: Unremarkable 01/23/2022 12:00 PM 05/22/2022 12:00 PM 09/24/2022 8:59 AM 11/20/2022 11:26 AM 08/07/2023 9:57 AM 12/04/2023 9:33 AM 05/26/2024 9:02 AM Vitals BMI 48.42 kg/m2 48.42 kg/m2 48.42 kg/m2 48.42 kg/m2 47.94 kg/m2 47.61 kg/m2 47.61 kg/m2 BSA (m2) 2.52 m2 2.52 m2 2.52 m2 2.52 m2 2.51 m2 2.5 m2 2.5 m2 Systolic 146 130 130 136 Diastolic 90 80 80 84 Heart Rate 66 65 63 SpO2 98 % 98 % 95 % Height (in) 5' 6 5' 6 5' 6 5' 6 5' 6 5' 6 5' 6 Weight (lb) 300 300 300 297 295 295 Visit Report Report Report Report Report Report Allergies Allergen Reactions Bee Venom Other Reaction(s): swelling, cant'breath Codeine Other Reaction(s): itch Hydrocodone-Acetaminophen Other Reaction(s): unknown Metformin Hcl Other Reaction(s): intolerant diarrhea Oxycodone-Acetaminophen Other Reaction(s): rash, itch Propoxyphene Other Reaction(s): can't breath Sulfa Antibiotics Other Reaction(s): unknown Current Outpatient Medications on File Prior to Visit Medication Sig Dispense Refill albuterol HFA 90 mcg/act inhaler Inhale 2 puffs every 4 (four) hours if needed for wheezing. (Patient not taking: Reported on 05/26/2024) 18 g 2 amLODIPine (Norvasc) 10 MG tablet Take 1 tablet (10 mg) by mouth Daily 90 tablet 1 aspirin 81 MG EC tablet Take 81 mg by mouth in the morning. atorvastatin (Lipitor) 40 MG tablet Take 1 tablet (40 mg) by mouth in the evening 90 tablet 1 flecainide (Tambocor) 100 MG tablet Take 100 mg by mouth in the morning and 100 mg in the evening. liothyronine (Cytomel) 5 MCG tablet Take 1.5 tablet in AM and 1 tablet in PM on an empty stomach. SAMUEL; Octonotco or Ellie brands only (Patient not taking: Reported on 05/26/2024) 225 tablet 0 losartan (Cozaar) 100 MG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
--- OUTSIDE RECORDS SUMMARY | 2025-01-16 23:26 | XMS_ITS | Clinical Summary ---
Author Organization [facility] Address [address] [place] [address] Care Team Providers Care Multiple Launch Rocket System Crewmember Name Role Phone Brian Lorenzana MD Primary Care Provider [phone] Allergies Active AllergyReactionsCriticalityNoted DateCommentsBee Venom Protein (Honey Bee)Other08/20/2022 Other Reaction(s): swelling, cant'breath VmrzavoVznteap36/05/2023 Other Reaction(s): itch Hydrocodone-YdohdczvzrrozRovtm87/05/2023 Other Reaction(s): unknown GqyigvcmgZktxoocq26/05/2023 Other Reaction(s): intolerant diarrhea Oxycodone-JvmzceabkzwkqVldxAku37/05/2023 Other Reaction(s): rash, itch YuxlfffpgezcArxvw30/05/2023 Other Reaction(s): can't breath Sulfa (Sulfonamide Antibiotics)Other08/20/2022 Other Reaction(s): unknown Medications MedicationSigDispense QuantityRefillsLast FilledStart DateEnd DateStatus metoprolol tartrate (Lopressor) 50 mg tablet Take 100 mg by mouth two times daily.05/28/2023ctive losartan (Cozaar) 100 mg tablet Take 1 tablet by mouth in the morning.Active atorvastatin (Lipitor) 40 mg tablet Take 1 tablet by mouth in the morning.05/28/2023ctive aspirin 81 mg EC tablet Take 1 tablet by mouth in the morning.Active liothyronine (Cytomel) 5 mcg tablet 1.5 tabs in the AM, 1 tab in the PM08/07/2023ctive flecainide (Tambocor) 100 mg tablet Indications:PalpitationsTake 1 tablet (100 mg) by mouth two times daily. 180 tablet 309/ctive amLODIPine (Norvasc) 10 mg tablet Indications:Benign hypertensive heart disease without congestive heart failure Take 1 tablet (10 mg) by mouth once daily as directed. 90 tablet ctive spironolactone (Aldactone) 25 mg tablet Indications:Benign hypertensive heart disease without congestive heart failure Take 1 tablet (25 mg) by mouth in the morning. 90 tablet ctive Active Problems ProblemNoted DateDiagnosed DateMild concentric left ventricular hypertrophy (LVH)06/21/2023 Overview (08/19/2023): Echo 2020 Adult situational stress qhuzktad69/05/2023alcified granuloma of lung08/20/2022 Chronic sggpnnh5708/20/2022hronic respiratory failure with xoydpzm2208/20/2022 Equinus contracture of left ankle08/20/2022ESS (euthyroid sick syndrome) 08/20/2022History of /05/2023Hypertensive rpycjbzufrl51/05/2023 Insulin elewyerjli58/05/2023Interstitial lung /05/2023 Xfexqmvkmmgmfzdh15/05/2023Morbid obesity due to excess lfuctqie32/05/2023 Osteoarthrosis, shoulder ncedpr5408/20/2022Other chronic pain08/20/2022Other headache fjcrbpsi82/05/2023ost-acute sequelae of COVID-19 (PASC)08/20/2022 Tarsal coalition of right foot08/20/2022VC (premature ventricular contraction) 08/20/2022Vitamin D /05/4627Tqnwmzjordaj14/17/2021enign essential peztyrfxpixa89/02/2021KD (chronic kidney disease) stage 2, GFR 60-89 ml/min 05/17/2020Mixed gdfjrnakbibsyy84/02/2021VT (supraventricular tachycardia) 05/17/2020Venous (peripheral) tvcstjwoigwud85/02/2021Ventricular tachycardia 05/17/2020djustment ulnulokg88/08/2020Reactive jqfndipgvnek67/29/2016Chronic cluster ycsliklc85/15/2015 Encounters DateTypeDepartmentCare NnpvBoyoktcajgb38/22/2025Ref[facility] [address] [place] [address] Wendy [place] MA Benign hypertensive heart disease without congestive heart failure (Primary Dx); Palpitationsfrom Last 3 Months Family History Medical HistoryRelationNameCommentsAtrial fibrillationFatherHeart failureFather aortic valve stenosisFatherpacemakerFatherRelationNameStatusCommentsFather Social History Tobacco UseTypesPacks/DayYears UsedDateSmoking Tobacco: NeverSmokeless Tobacco: Never Tobacco Cessation:Counseling Given: Not Answered Alcohol UseStandard Drinks/WeekCommentsNever0 (1 standard drink = 0.6 oz pure alcohol)LA Safety & EnvironmentAnswerDate RecordedFear of Current or Ex-Partner Not on file07/03/2023Emotionally AbusedNot on file07/03/2023hysically AbusedNot on file07/03/2023Sexually AbusedNot on file07/03/2023hysically or Sexually AbusedNot on file07/03/2023CommentsUnknownSex and Gender Information ValueDate RecordedSex Assigned at BirthNot on fileLegal DsmQtpecf16/29/2022 10:46 PM EDTGender IdentityNot on fileSexual OrientationNot on file Last Filed Vital Signs Vital SignReadingTime TakenCommentsBlood Yybkkvfu205/6403 9:39 AM EST Vczsp2970/04/2025 9:39 AM ESTTemperature--Respiratory Rate--Oxygen Bmafeullfr33% 05/19/2024 9:39 AM ESTInhaled Oxygen Concentration--Weight--Psxsss904.6 cm (5' 6 )05/19/2024 9:39 AM ESTBody Mass Index-- Plan of Treatment Health MaintenanceDue DateLast DoneCommentsCT Duxhjnrrtlci78/30/1960FIT-DNA 1959FIT1959FOBT1959Medicare Initial Physical (IPPE)1960 Yqkrvghtypglr61/30/1960Depression Zqulzvobh77/30/1972Pneumococcal Vaccine: 50+ Years (1 of 2 - PCV)08/14/1978Pap Smear08/14/1980Cervical Cancer Screening 08/14/1989HPV/Bvebvc6808/14/1989IPV Vaccines (2 of 3 - Adult catch-up series) Zoster Vaccines (1 of 2)08/14/2009dult Dhfecvp4206/10/2019 06/09/20090809Yqcvjrkdb78/01/202505/03/2022, 03/24/2019Fall Risk Orawjboel03/30/2025 COVID-19 Vaccine (1 - season)2024Influenza Vaccine (#1)2024 12/26/20155468Rgwartqstmm33Colorectal Cancer Jgxwluotp32/10/2028 HIB VaccinesAged Out07/11/2009, 06/09/2009No longer eligible based on patient's age to complete this topicHPV VaccinesAged OutNo longer eligible based on patient's age to complete this topicMeningococcal B VaccineAged OutNo longer eligible based on patient's age to complete this topicMeningococcal VaccineAged OutNo longer eligible based on patient's age to complete this topicRotavirus VaccinesAged OutNo longer eligible based on patient's age to complete this topic Insurance Care Teams Team MemberRelationshipSpecialtyStart DateEnd Date Brian Lorenzana MD [phone] (work) [facility] - Fdfjzlo5
--- OUTSIDE RECORDS SUMMARY | 2025-01-16 23:26 | XMS_ITS | Encounter Summary ---
Author Organization [facility] Address [address] [place] [address] Care Team Providers Care Integrated Marketing Intern Name Role Phone Brian Piña MD Primary Care Provider [phone] Justino Galeas MD Unavailable Encounter Details DateTypeDepartmentCare Team (Latest Contact Info)Mobeqfskjhz06/04/2024Clinisync Result Encounter [facility] External Department Unsolicited Brian Piña MD [address] [place], [place] [id number] Social History Tobacco UseTypesPacks/DayYears UsedDateSmoking Tobacco: NeverSmokeless Tobacco: NeverAlcohol UseStandard Drinks/WeekCommentsNot Currently0 (1 standard drink = 0.6 oz pure alcohol)Caffeine intake: 2-3 cups per dayPHQ-2AnswerDate Recorded Patient Health Questionnaire-2 Kivde776Exercise Vital SignAnswerDate RecordedOn average, how many days [...] time?No09/23/2022Number of Places Lived in the Last YearNot on file09/23/2022In the last 12 months, was there a time when you did not have a steady place to sleep or slept in ashelter (including now)?No09/23/2022Housing Stability Vital SignAnswerDate RecordedIn the last 12 months, was there a time when you were not able to pay the mortgage or rent on time?No12/04/2023Number of Times Moved in the Last YearNot on file 12/04/2023t any time in the past 12 months, were you homeless or living in a snf (including now)?No12/04/2023Humiliation, Afraid, Rape, and Kick questionnaireAnswerDate RecordedWithin the last year, have you been afraid of your partner or ex-partner?No01/05/2025Within the last year, have you been humiliated or emotionally abused in other ways by your partner or ex-partner?No 01/05/2025Within the last year, have you been kicked, hit, slapped, or otherwise physically hurt by your partner or ex-partner?No01/05/2025Within the last year, have you been raped or forced to have any kind of sexual activity by your part ner or ex-partner?No01/05/2025Social Connection and Isolation PanelAnswerDate RecordedIn a typical week, how many times do you talk on the phone with family, friends, or neighbors?More than three times a week01/05/2025How often do you get together with friends or relatives?Twice a week01/05/2025How often do you attend orthodox or jainism services?More than 4 times per year01/05/2025Do you belong to any clubs or organizations such as orthodox groups, unions, fraternal or athletic groups, or school groups?Yes01/05/2025How often do you attend meetings of the clubs or organizations you belong to?1 to 4 times per year01/05/2025re you , , , , never , or living with a partner?Xfhbglc2801/05/2025UDIT-CAnswerDate RecordedQ1: How often do you have a drink containing alcohol?Never01/05/2025Q2: How many drinks containing alcohol do you have on a typical day when you are drinking?Patient does not drink 01/05/2025Q3: How often do you have six or more drinks on one occasion?Never 01/05/2025Overall Financial Resource Strain (CARDIA)AnswerDate RecordedHow hard is it for you to pay for the very basics like food, housing, medical care, and heating?Not hard at all01/05/2025Finmountainstar healthcare [facility] Occup[facility] - Occupational Stress QuestionnaireAnswerDate RecordedDo you feel stress - tense, restless, nervous, or anxious, or unable to sleep at night because yourmind is troubled all the time - these days?Only a suqotk5201/05/2025Hunger Vital Sign AnswerDate RecordedWithin the past 12 months, you worried that your food would run out before you got the money to buymore.Never true01/05/2025Within the past 12 months, the food you bought just didn't last and you didn't have money to get more.Never true01/05/2025PRAPARE - TransportationAnswerDate RecordedIn the past 12 months, has lack of transportation kept you from medical appointments or from getting medications?No01/05/2025In the past 12 months, has lack of transportation kept you from meetings, work, or from getting things needed for daily living?No01/05/2025Housing Stability Vital SignAnswerDate RecordedIn the last 12 months, was there a time when you were not able to pay the mortgage or rent on time?No01/05/2025Number of Times Moved in the Last YearNot on file 01/05/2025t any time in the past 12 months, were you homeless or living in a snf (including now)?No01/05/2025B1300 Health LiteracyAnswerDate RecordedHow often do you need to have someone help you when you read instructions, pamphlets, or other written material from your doctor or pharmacy?Never 01/05/2025CommentsNoSex and Gender InformationValueDate RecordedSex Assigned at BirthNot on fileLegal YtaMbmgij63/15/2023 6:42 PM EDTGender Identity Not on fileSexual OrientationNot on fileOccupationIndustryJob Start DateJob End DateWork part timeNot on fileNot on fileNot on filedocumented as of this encounter Functional Status * AUDIT-C ScoreAnswerDate of JvbylyxywiJdpphu886/21/2025 11:12 AM EDTMychart, Generic * Q1: How often do you have a drink containing alcohol?AnswerDate of Assessment OrrbdaAkcro52/21/2025 11:12 AM EDSIMONEychmercy, Generic * Q2: How many drinks containing alcohol do you have on a typical day when you are drinking?AnswerDate of AssessmentAuthorPatient does not drink01/05/2025 11:12 AM EDSIMONEychmercy, Generic * Q3: How often do you have six or more drinks on one occasion?AnswerDate of VhiadkeuvyHktshlZrlkc05/21/2025 11:12 AM EDParis, Generic * Over the past 2 weeks, how often have you been bothered by any of the following problems?QuestionAnswerDate of AssessmentAuthorFeeling down, depressed, or hopelessNot at all05/26/2024 2:30 PM Arabella Shadia, REHANatient Health Questionnaire-2 Wcatt432 2:30 PM Arabella June, MA * Little interest or pleasure in doing thingsAnswerDate of AssessmentAuthorNot at all01/05/2025 11:15 AM Jhonathan Generic documented as of this encounter Plan of Treatment DateTypeDepartmentCare Team (Latest Contact Info)Sutpvezmaxi60/19/2025 10:00 AM ESTOffice Visit [facility] [place] [address] [facility] [address] [facility] [address] [place] [address] Brian Piña MD [address] [facility] [address] [place] [address] documented as of this encounter Procedures Procedure NamePriorityDate/TimeAssociated DiagnosisCommentsCA HOLTER MONITOR 2-7 DAYS06/20/2023 2:50 PM EDT documented in this encounter Results * CA HOLTER MONITOR 2-7 DAYS (06/20/2023 2:50 PM EDT)Anatomical RegionLaterality ModalityOtherSpecimen (Source)Anatomical Location / LateralityCollection Method / VolumeCollection TimeReceived Time06/20/2023 2:50 PM EDT Narrative 06/21/2023 7:11 AM EDT [facility] ?[address] ? [place] [address] ? Cardiology Report ? Signed ? Patient: NEARHOOD,RATNA L ?MR#: [id number] ?? : 1960 ?Acct:[id number] ?? Age/Sex: 62 / F ?ADM Date: 06/09/24 ?? Loc: CARD ? Attending Dr: BRIAN PIÑA ? Ordering Physician: BRIAN PIÑA ?? Date of Service: 06/10/23 ?? Procedure(s): CA ronny johnsonior 2-7 days ?? Accession Number(s): [id number] ? cc: BRIAN PIÑA ?[facility] ? Test Date: ?2023-06-20 ?? Pat Name: ? RATNA BROOKSDAYTON ? Department: ? Room: ? - ?? Gender: ? Female ? Surgical Brace Maker: ? : ?1960 ? Requested By: BRIAN PIÑA ?? Order Number: [id number] ?Reading MD: ?? VINICIO ??BALL ? Interpretive Statements ?? Predominant rhythm is sinus with average rate of 82 bpm ?? Tachycardia (17% burden) ?? - max rate of 191 bpm (PSVT) ?? - 17 episodes of PSVT w/ fastest rate of 191 bpm and longest duration of 17 ?? beats ?? - longest episode of 3h 1min 4sec with rates between 112-141 bpm ?? Bradycardia ?? - min rate of 37 bpm ?? - longest episode of 44min 55sec with rates between 50-57 bpm ?? Ventricular ectopy ?? - 17,865 total, 5% burden ?? - 142 couplets ?? - 17,717 PVC ?? - 1 episode of bigeminy ?? NSVT ?? - 2 episodes of 3 beat VT ?? Patient triggered events: 2 ?? - not associated with symptoms ?? - associated with sinus tachycardia, PVC, PAC with rates of 144 and 131 bpm ? Impression: ?? Predominant rhythm is sinus with average rate of 82 bpm ?? Fastest rate of 191 bpm (PSVT) and slowest rate of 37 bpm ?? 17% tachycardia burden overall ?? 17,717 PVC, 142 couplets, 1 bigeminy ?? 2 episodes of 3 beat VT ?? No atrial fibrillation ?? No pauses or blocks ? Electronically Signed On 06-21-2023 7:11:07 EDT by VINICIO ??CAMERON ? Dictated By: ?Vinicio Barnes D.O. ? Signed By: ?06/21/23710 ?06/21/23 0711 ? DD/ 1450 ? TD/TT: ? Water Pipe Installer: Procedure Note Radiology, Radiologist, - 06/21/2023 [place] [address] Cardiology Report Signed Patient: RATNA BAZAN LMR#: [id number] : 1960Acct:[id number] Age/Sex: 62 / FADM Date: 06/10/23 Loc: CARD Attending Dr: BRIAN PIÑA Ordering Physician: BRIAN PIÑA Date of Service: 06/10/23 Procedure(s): CA holter montior 2-7 days Accession Number(s): [id number] cc: BRIAN PIÑA [facility] Test Date: 2023-06-20 Pat Name: RATNA BAZAN Department: Room: - Gender: Female Surgical Brace Maker: : 1960 Requested By: BRIAN PIÑA Order Number: [id number] Reading MD: VINICIO BARNES Interpretive Statements Predominant rhythm is sinus with average rate of 82 bpm Tachycardia (17% burden) - max rate of 191 bpm (PSVT) - 17 episodes of PSVT w/ fastest rate of 191 bpm and longest duration of17 beats - longest episode of 3h 1min [...] PVC, PAC with rates of 144 and 131bpm Impression: Predominant rhythm is sinus with average rate of 82 bpm Fastest rate of 191 bpm (PSVT) and slowest rate of 37 bpm 17% tachycardia burden overall 17,717 PVC, 142 couplets, 1 bigeminy 2 episodes of 3 beat VT No atrial fibrillation No pauses or blocks Electronically Signed On 06-21-2023 7:11:07 EDT by VINICIO BARNES Dictated By: Vinicio Barnes D.O. Signed By:06/21/23 0711 06/21/23 0711 DD/ 1450 TD/TT: Water Pipe Installer: Authorizing ProviderResult TypeResult StatusBrian Piña MDCLINISYNC IMAGING Final Result documented in this encounter Visit Diagnoses Not on filedocumented in this encounter Care Teams Team MemberRelationshipSpecialtyStart DateEnd Date Brian Piña MD [address] [facility] [address] [place] [address] PCP - GeneralFamily Medicine08/20/22 Justino Galeas MD [address] [place] [address] Referring HqhinfiwcOedzomvexp19/22/25documented as of this encounter
--- OUTSIDE RECORDS SUMMARY | 2025-01-16 23:26 | XMS_ITS | Clinical Summary ---
Author Organization [facility] Address [address] [place] [address] Care Team Providers Care Metalsmith Name Role Phone Brian Piña MD Primary Care Provider + [phone] Justino Galeas MD Unavailable Allergies Active AllergyReactionsCriticalityNoted DateCommentsBee VenomShortness of breath ,Swelling,WuqqoozaBvqr07/05/6017FpjgywrZjwwEzq90/05/2023 Hydrocodone-PajppojozwiyfCrdfbb27/05/2023 Other Reaction(s): unknown Metformin SkvZfe2008/20/2022 Other Reaction(s): intolerant diarrhea Oxycodone-LctglawqesvlqNeylrWjshxp25/05/2023ropoxypheneShortness of breath, LouzmxakKfpy81/05/2023Sulfa WyjcabclzdwKpjvfLsmzsj51/05/2023 Medications MedicationSigDispense QuantityRefillsLast FilledStart DateEnd DateStatus aspirin 81 MG EC tablet Take 81 mg by mouth in the morning.Active albuterol HFA 90 mcg/act inhaler Indications:Pulmonary fibrosis (HCC)Inhale 2 puffs every 4 (four) hours if needed for wheezing. 18 g ctive flecainide (Tambocor) 100 MG tablet Take 100 mg by mouth in the morning and 100 mg in the evening.10/29/2023ctive losartan (Cozaar) 100 MG tablet Indications:Benign essential hypertensionTake 1 tablet (100 mg) by mouth Daily 90 tablet 5Active spironolactone (Aldactone) 25 MG tablet Indications:Venous (peripheral) insufficiencyTake 1 tablet (25 mg) by mouth in the morning and 1 tablet (25 mg) before bedtime. 180 tablet 5Active metoprolol tartrate (Lopressor) 100 MG tablet Indications:Benign essential hypertensionTake 1 tablet (100 mg) by mouth in the morning and 1 tablet (100 mg) before bedtime. 120 tablet 5Active atorvastatin (Lipitor) 40 MG tablet Indications:Mixed hyperlipidemiaTake 1 tablet (40 mg) by mouth in the evening 60 tablet 5Active amLODIPine (Norvasc) 10 MG tablet Indications:Benign essential hypertensionTake 1 tablet (10 mg) by mouth Daily 90 tablet Discontinued(Therapy completed) Active Problems ProblemNoted DateDiagnosed DateChronic restrictive lung dlzpgtx8601/11/2025 Pulmonary fibrosis, emitmnqncty92/27/2025Primary pulmonary hypertension 01/11/2025MI 45.0-49.9, adult01/06/2025Mild concentric left ventricular hypertrophy (LVH)06/21/2023 Overview (06/21/2023): Echo 2020 Adult situational stress jfzfujoe47/05/2023enign essential hypertension 08/20/2022alcified granuloma of lung08/20/2022hronic pzvivdv9208/20/2022KD (chronic kidney disease) stage 2, GFR 60-89 ml/min08/20/2022Equinus contracture of left ankle08/20/2022ESS (euthyroid sick syndrome)08/20/2022History of xjymtpdloybv34/05/2023Hypertensive ishcqenugwm02/05/2023Interstitial lung deboikppi86/05/2023Insulin wrpuyuxowi88/05/3403Pwbcnwqztvjyiffw28/05/2023Mixed /05/2023Morbid obesity due to excess /05/2023 Osteoarthrosis, shoulder foacdk6008/20/2022Other chronic pain08/20/2022Other headache vapvfkje26/05/2023ost-acute sequelae of COVID-19 (PASC)08/20/2022VC (premature ventricular contraction)08/20/2022SVT (supraventricular tachycardia) 08/20/2022Tarsal coalition of right foot08/20/2022Venous (peripheral) iqzrbcqkhjzpx23/05/2023Vitamin D shvavjlzxp69/05/2023VT (ventricular tachycardia)08/20/20225341Zkkycnwrmzym85/17/2021djustment /08/2020 Reactive rzmqkcwqpsak97/29/2016Chronic cluster zzxtemmu51/15/2015 Resolved Problems ProblemNoted DateDiagnosed DateResolved DateChronic respiratory failure with zzwiazj82 Encounters DateTypeDepartmentCare PudmBbfavdhpfdt20/22/2025 10:00 AM EDTOffice Visit [facility] [address] [address] Brian Piña MD Welcome to Medicare preventive visit (Primary Dx); Advance directive in chart; Encounter for screening for other disorder; Screening for alcohol problem; Screening for osteoporosis; Menopause; Screening mammogram, encounter for; Primary pulmonary hypertension (HCC); Pulmonary fibrosis, unspecified (HCC); Chronic restrictive lung disease; Morbid obesity due to excess calories ([facility]-HCC); BMI 45.0-49.9, adult ([facility]-HCC)01/06/20257101Umhqwm06/21/8885Tkhnvo34/29/[address] [facility] [address] [address] Shadia Eubanks MA Care Lvvliyqvmegt85/01/2025Refill [facility] [address] [address] Brian Piña MD Mixed yiirzmkaxbvlbk48/25/2025Telephone [facility] [address] [address] Shadia Eubanks MA from Last 3 Months Immunizations ImmunizationAdministration DatesNext DueHib / Hep B007/11/2009,06/09/2009 Influenza, injectable, quadrivalent, preservative free12/26/2015Polio, Ncgheisxzkj91/25/9057Xvgx14/25/2010 Family History Medical HistoryRelationNameCommentsHypertensionBrother 2Hal WCancerDaughter 2 BrittanyMiscarriages / StillbirthsDaughter 2BrittanyArthritisFatherHalAtrial fibrillationFatherHalHypertensionFatherHalPacemakerFatherHalTriple BypassFather HalBreast cancerMaternal GrandmotherFernCancerMaternal GrandmotherFernArthritis MotherCarolynCOPDMotherCarolynDiabetesMotherCarolynHeart failureMotherCarolyn HypertensionMotherCarolynUterine cancerMotherCarolynchronic back painMother CarolynCancerPaternal GrandmotherFernStrokeSiblingDepressionSister 2Deb HypertensionSister 2DebMental illnessSister 2DebStrokeSister 3BrendaVision loss Sister 3BrendaRelationNameStatusCommentsBrother 11 brotherBrother 2Hal WDaughter 5Ionpg6 daughterDaughter 2BrittanyFatherHalAliveMaternal GrandmotherFernMother CarolynAlivePaternal GrandmotherFernDeceasedSiblingSister 12 sistersSister 2Deb Sister 5OdiamfBnnXutcq2 son Social History Tobacco UseTypesPacks/DayYears UsedDateSmoking Tobacco: NeverSmokeless Tobacco: Never Tobacco Cessation:Counseling Given: Not Answered Alcohol UseStandard Drinks/WeekCommentsNever0 (1 standard drink = 0.6 oz pure alcohol)Caffeine intake: 2-3 cups per dayPHQ-2AnswerDate RecordedPatient Health Questionnaire-2 Ppzpx659Exercise Vital SignAnswerDate RecordedOn average, how many days [...] steady place to sleep or slept in [place] (including now)?No09/23/2022 Housing Stability Vital SignAnswerDate RecordedIn the last 12 months, was there a time when you were not able to pay the mortgage or rent on time?No12/04/2023 Number of Times Moved in the Last YearNot on file12/04/2023t any time in the past 12 months, were you homeless or living in a [place] (including now)?No 12/04/2023Humiliation, Afraid, Rape, and Kick [...] relatives?Twice a week01/05/2025How often do you attend protestant or methodist services?More than 4 times per year01/05/2025Do you belong to any clubs or organizations such as protestant groups, unions, fraternal or athletic groups, or [...] medical care, and heating?Not hard at all 01/05/2025[facility] [place] [facility] Occup[facility] Health - Occupational Stress QuestionnaireAnswerDate RecordedDo you feel stress - tense, restless, nervous, or anxious, or unable to sleep at night because yourmind is troubled all the time - these days?Only a iwfqln3701/05/2025Hunger Vital SignAnswerDate Recorded Within the past 12 [...] were you homeless or living in a [place] (including now)? No01/05/2025B1300 Health LiteracyAnswerDate RecordedHow often do you need to have someone help you when you read instructions, pamphlets, or other written material from your doctor or pharmacy?Never01/05/2025CommentsNoSex and Gender InformationValueDate RecordedSex Assigned at BirthNot on fileLegal Sex Nbklye2205/30/2022 6:42 PM EDTGender IdentityNot on fileSexual OrientationNot on fileOccupationIndustryJob Start DateJob End DateWork part timeNot on fileNot on fileNot on file Last Filed Vital Signs Vital SignReadingTime TakenCommentsBlood Rhvfjilk373/801 10:12 AM EDT Fgumx94024/22/2025 10:51 AM EDTTemperature--Respiratory Rate--Oxygen Saturation 97%01/06/2025 10:12 AM EDTInhaled Oxygen Concentration--Dcxhhr831 kg (303 lb) 01/06/2025 10:12 AM SYOXxzrsa670.6 cm (5' 6 )01/06/2025 10:12 AM EDTBody Mass Index48.9101/06/2025 10:12 AM EDT Plan of Treatment DateTypeDepartmentCare Team (Latest Contact Info)Ilkdtttbjvv53/19/2025 10:00 AM ESTOffice Visit [facility] [place] [address] Family Medicine 112 [facility] 100 [place] [address] Brian Piña MD 112 [facility] [address] [place] [address] Health MaintenanceDue DateLast DoneCommentsCT Uabbbrdcjpno63/30/1960FIT-DNA 1960FIT1960 5210Bbzgofvsjfuyb59/30/1960MMR Vaccines (1 of 1 - Standard series)1Pneumococcal Vaccine: 65+ Years (1 of 2 - PCV)08/14/1978 DTaP/Tdap/Td Vaccines (2 - Td or Tdap)IPV Vaccines (2 of 3 - Adult catch-up series)Hepatitis B Vaccines (3 of 3 - 19+ 3- dose series), 06/09/2009FOBTMammogram /03/2022, 06/14/2021, 03/24/2019, Additional history existsCOVID-19 Vaccine ( - season)2024Influenza Vaccine (#1) Medicare Annual Wellness (AWV)olonoscopy12/26/2027 12/25/2017Colorectal Cancer Zuhwjdjwy66/10/2028HIB VaccinesAged Out07/11/2009, 06/09/2009No longer eligible based on patient's age to complete this topicHPV VaccinesAged OutNo longer eligible based on patient's age to complete this topic Hepatitis A VaccinesAged OutNo longer eligible based on patient's age to complete this topicMeningococcal B VaccineAged OutNo longer eligible based on patient's age to complete this topicMeningococcal VaccineAged OutNo longer eligible based on patient's age to complete this topicRotavirus VaccinesAged Out No longer eligible based on patient's age to complete this topic Procedures Procedure NamePriorityDate/TimeAssociated DiagnosisCommentsBI MAMMOGRAM SCREENING TOMOSYNTHESIS RRNUMNWOLBzrnxhd28/01/2023 OCC BLD IMMUNO YHLZWASmneyaw14/24/2020 TTCVUQLWRSEBesesuy50/10/2018 12:00 PM EDT from Last 3 Months or Most Recently Relevant to Health Maintenance Results * Bilateral screening mammogram with tomosynthesis (07/16/2022)Anatomical Region LateralityModalityBreastBilateralMammographySpecimen (Source)Anatomical Location / LateralityCollection Method / VolumeCollection TimeReceived Time Narrative 07/16/2022 12:00 AM EDT PERFORMED AT [facility] LOCATION:[place] [address] Patient: ? NEARHOOD RATNA Mcdonald. ? Exam Date: ? 07/16/2022 : ? 1960 ?Gender:F ? Ordering : ? DR BRIAN PIÑA . ? Admission #: ? [id number] Family : ?Order #: ? [id number] ? CLICK HERE TO VIEW EXAM RADIOLOGY REPORT PROCEDURE: ? MAMMOGRAM SCREENING 3D BILATERAL CAD COMPARISON: ? MG MAMM SCREEN 3D LUCIEN CAD 06/14/2021. ??MG MAMM SCREEN 3D LUCIEN CAD 03/24/2019. ??MG MAMM SCREEN 3D LUCIEN CAD 12/18/2017. ??DIGITIZED_MAMMO 07/15/2002. INDICATIONS: ? Screening mammography Calculator Name ? NCI Breast Cancer Risk Assessment Tool 5 Year Breast Cancer Risk ? 1.70% Lifetime Breast Cancer Risk ? 7.70% Personal Breast Cancer ?No Personal Ovarian Cancer ? No Treatments ? None Family Cancers ? Grandmother-maternal with breast cancer at age 50. LOCATION: ? [facility] BREAST COMPOSITION: ? Scattered areas fibroglandular density. FINDINGS: DIAGNOSTIC CATEGORY 1--NEGATIVE. RIGHT BREAST: ??No significant suspicious finding. ??No significant change has occurred. LEFT BREAST: ??No significant suspicious finding. ??No significant change has occurred. RECOMMENDATIONS: ROUTINE MAMMOGRAM AND CLINICAL EVALUATION IN 12 MONTHS. PLEASE NOTE: ??A NORMAL MAMMOGRAM DOES NOT EXCLUDE THE POSSIBILITY OF BREAST CANCER. ??A CLINICALLY SUSPICIOUS PALPABLE LUMP SHOULD BE BIOPSIED. Dictated by: Tigre Muñoz M.D. on 07/16/2022 at 12:51 Approved by: Tigre Muñoz M.D. on 07/16/2022 at 12:58 Procedure Note CONVERSION, GENERIC - 09/21/2022 PERFORMED AT [facility] LOCATION:[place] [address] Patient: SHANIA Perez Exam Date: 07/16/2022 : 1960 Gender:F Ordering : DR BRIAN PIÑA . Admission #: [id number] Family : Order #: [id number] CLICK HERE TO VIEW EXAM RADIOLOGY REPORT PROCEDURE: MAMMOGRAM SCREENING 3D BILATERAL CAD COMPARISON: MG MAMM SCREEN 3D LUCIEN CAD 06/14/2021. MG MAMM SCREEN 3D LUCIEN CAD 03/24/2019. MG MAMM SCREEN 3D LUCIEN CAD 12/18/2017. DIGITIZED_MAMMO 07/15/2002. INDICATIONS: Screening mammography Calculator Name NCI Breast Cancer Risk Assessment Tool 5 Year Breast Cancer Risk 1.70% Lifetime Breast Cancer Risk 7.70% Personal Breast Cancer No Personal Ovarian Cancer No Treatments None Family Cancers Grandmother-maternal with breast cancer at age 50. LOCATION: [facility] BREAST COMPOSITION: Scattered areas fibroglandular density. FINDINGS: DIAGNOSTIC CATEGORY 1--NEGATIVE. RIGHT BREAST: No significant suspicious finding. No significant changehas occurred. LEFT BREAST: No significant suspicious finding. No significant changehas occurred. RECOMMENDATIONS: ROUTINE MAMMOGRAM AND CLINICAL EVALUATION IN 12 MONTHS. PLEASE NOTE: A NORMAL MAMMOGRAM DOES NOT EXCLUDE THE POSSIBILITY OFBREAST CANCER. A CLINICALLY SUSPICIOUS PALPABLE LUMP SHOULD BE BIOPSIED. Dictated by: Tigre Muñoz M.D. on 07/16/2022 at 12:51 Approved by: Tigre Muñoz M.D. on 07/16/2022 at 12:58 Authorizing ProviderResult TypeResult StatusBrian Piña MDIMG BI PROCEDURES Final Result * OCC BLD IMMUNO SCREEN (10/09/2019)ComponentValueRef RangeTest MethodAnalysis TimePerformed AtPathologist SignatureOCCULT BLOODNEGATIVENEGATIVENOMS LEGACY EXTERNAL LABPERFORMING LAB:see noteNOMS LEGACY EXTERNAL LABComment:[address] [facility] - Rock Climbing Instructor Maria Teresa Chavez,[place] [address] ,Ext. 8128 specimen (Source)Anatomical Location / LateralityCollection Method / VolumeCollection TimeReceived Time10/09/2019 Narrative Authorizing ProviderResult TypeResult StatusBrian Piña MDECW LABSFinal ResultPerforming OrganizationAddressCity/State/ZIP CodePhone Number [facility] * Colonoscopy (12/25/2017 12:00 PM EDT)Anatomical RegionLateralityModality EndoscopySpecimen (Source)Anatomical Location / LateralityCollection Method / VolumeCollection TimeReceived Time12/25/2017 12:00 PM EDT Narrative 12/25/2017 12:00 PM EDT PERFORMED AT [facility] LOCATION:[id number] Abnormal Procedure Note CONVERSION, GENERIC - 08/01/2022 PERFORMED AT [facility] LOCATION:[id number] Abnormal Authorizing ProviderResult TypeResult StatusJennifer A Luisacher NPENDOSCOPY PROCEDURE ORDERABLESFinal Result from Last 3 Months or Most Recently Relevant to Health Maintenance Insurance Advance Directives TypeDate RecordedPatient RepresentativeExplanationAdvance Directives and Living Will Healthcare Power Of AttorneyAdvance Directives and Living Will Living Will Care Teams Team MemberRelationshipSpecialtyStart DateEnd Brian Piña MD [address] [facility] [address] [place] [address] PCP - GeneralFamily Medicine08/20/22 Justino Galeas MD [address] [place] [address] Referring AimwucqgdXnyelwocxd63/22/25
--- OUTSIDE RECORDS SUMMARY | 2025-01-16 23:26 | XMS_ITS | Encounter Summary ---
Author Organization [facility] Address [address] [place] [address] Care Team Providers Care Brand Strategy Manager Name Role Phone Brian Piña MD Primary Care Provider + [phone] Justino Galeas MD Unavailable Encounter Details DateTypeDepartmentCare Team (Latest Contact Info)Potgkfyksva02/18/2024linisync Result Encounter [facility] External Department Unsolicited Provider, Generic External Data Social History Tobacco UseTypesPacks/DayYears UsedDateSmoking Tobacco: NeverSmokeless Tobacco: NeverAlcohol UseStandard Drinks/WeekCommentsNever0 (1 standard drink = 0.6 oz pure alcohol)Caffeine intake: 2-3 cups per dayPHQ-2AnswerDate RecordedPatient Health Questionnaire-2 Hgpgo585Exercise Vital SignAnswerDate RecordedOn average, how many days [...] to sleep or slept in ashelter (including now)?No09/23/2022 Housing Stability Vital SignAnswerDate RecordedIn the last 12 months, was there a time when you were not able to pay the mortgage or rent on time?No12/04/2023 Number of Times Moved in the Last YearNot on file12/04/2023t any time in the past 12 months, were you homeless or living in a group home (including now)?No 12/04/2023Humiliation, Afraid, Rape, and Kick [...] relatives?Twice a week01/05/2025How often do you attend denominational or tenriism services?More than 4 times per year01/05/2025Do you belong to any clubs or organizations such as denominational groups, unions, fraternal or athletic groups, or [...] medical care, and heating?Not hard at all 01/05/2025[facility] [place] of Occupational Health - Occupational Stress QuestionnaireAnswerDate RecordedDo you feel stress - tense, restless, nervous, or anxious, or unable to sleep at night because yourmind is troubled all the time - these days?Only a enzgcc2701/05/2025Hunger Vital SignAnswerDate Recorded Within the past 12 [...] were you homeless or living in a group home (including now)? No01/05/2025B1300 Health LiteracyAnswerDate RecordedHow often do you need to have someone help you when you read instructions, pamphlets, or other written material from your doctor or pharmacy?Never01/05/2025CommentsNoSex and Gender InformationValueDate RecordedSex Assigned at BirthNot on fileLegal Sex Fixcri3505/30/2022 6:42 PM EDTGender IdentityNot on fileSexual OrientationNot on fileOccupationIndustryJob Start DateJob End DateWork part timeNot on fileNot on fileNot on filedocumented as of this encounter Functional Status * AUDIT-C ScoreAnswerDate of FwcuxxsvcmKtuucx114/21/2025 11:12 AM Jakub Ring * Q1: How often do you have a drink containing alcohol?AnswerDate of Assessment SoekudDdplg29/21/2025 11:12 AM Jhonathan Generic * Q2: How many drinks containing alcohol do you have on a typical day when you are drinking?AnswerDate of AssessmentAuthorPatient does not drink01/05/2025 11:12 AM Jhonathan Generic * Q3: How often do you have six or more drinks on one occasion?AnswerDate of ZefpqnalkyWkkghiVurnl61/21/2025 11:12 AM Jhonathan Generic * Over the past 2 weeks, how often have you been bothered by any of the following problems?QuestionAnswerDate of AssessmentAuthorFeeling down, depressed, or hopelessNot at all05/26/2024 2:30 PM Arabella Shadia [facility] CENTERatient Health Questionnaire-2 Ozoib491 2:30 PM Arabella June, [place] * Little interest or pleasure in doing thingsAnswerDate of AssessmentAuthorNot at all01/05/2025 11:15 AM Jakub Ring documented as of this encounter Plan of Treatment DateTypeDepartmentCare Team (Latest Contact Info)Sslaaipfqak16/19/2025 10:00 AM ESTOffice Visit [facility] [address] [facility] 100 [place] [address] Brian Piña MD 112 [facility] 100 [place] [address] documented as of this encounter Procedures Procedure NamePriorityDate/TimeAssociated DiagnosisCommentsXR FOOT RT MIN 3V 01/03/2024 7:16 AM EDT documented in this encounter Results * XR FOOT RT MIN 3V (01/03/2024 7:16 AM EDT)Anatomical RegionLateralityModality OtherSpecimen (Source)Anatomical Location / LateralityCollection Method / VolumeCollection TimeReceived Time01/03/2024 7:16 AM EDT Narrative 01/03/2024 7:18 AM EDT [facility] ?[address] ? [place] [address] ?XRay Report ? Signed ? Patient: NEARHOOD,RATNA L ?MR#: [id number] ?? : 1960 ?Acct:[id number] ?? Age/Sex: 63 / F ?ADM Date: 10/16/24 ?? Loc: RAD ? Attending Dr: Forrest Lee D.P.M. ? Ordering Physician: Forrest Lee D.P.M. ?? Date of Service: 01/01/24 ?? Procedure(s): XR foot RT min 3V ?? Accession Number(s): [id number] ? cc: BRIAN PIÑA ; Forrest Lee D.P.M. ? [facility] ? [address] ? [place] [address] ? Patient Name: ?? RATNA Mcdonald NEARHOOD ? MRN: [facility]:[id number] ? date: 1960 ?Sex: F ?? Assigned Patient Location: RAD ?? Current Patient Location: ? Accession/Order Number: [id number] ?? Exam Date: 01/01/2024 ??10:21 ?Report Date: 01/03/2024 ??07:16 ? At the request of: ?? FORREST ??ELAN ? Procedure: ??XR foot RT min 3V ? PROCEDURE: XR foot RT min 3V ? COMPARISON: None. ? HISTORY: RIGHT FOOT PAIN ? FINDINGS: ?? BONES:No acute fracture or dislocation. Moderate enthesopathic spurring of the ? calcaneus at the Achilles and plantar insertions ?? SOFT TISSUES:Negative. No visible soft tissue swelling. ?? EFFUSION:None visible. ?? OTHER: Negative. ? XR/XR foot RT min 3V ?? IMPRESSION: ? Mild degenerative changes ? Electronically authenticated by: JOCELIN ??ELLIOTT ?? Date: 01/03/2024 ??07:16 ? Dictated By: ?Jocelin Gallagher M.D. ? Signed By: ?01/03/24717 ? DD/ 5 ? TD/TT: ? Aerospace Medicine Physician: Procedure Note Radiology, Radiologist, MD - 01/03/2024 [place] [address] XRay Report Signed Patient: RATNA BAZAN LMR#: [id number] : 1960Acct:[id number] Age/Sex: 63 / FADM Date: 01/01/24 Loc: RAD Attending Dr: Forrest Lee D.P.M. Ordering Physician: Forrest Lee D.P.M. Date of Service: 01/01/24 Procedure(s): XR foot RT min 3V Accession Number(s): [id number] cc: BRIAN PIÑA ; Forrest Lee D.P.M. [address] [address] Patient Name: RATNA BAZAN MRN: [facility]:[id number] date: 1960 Sex: F Assigned Patient Location: RAD Current Patient Location: Accession/Order Number: [id number] Exam Date: 01/01/2024 10:21 Report Date: 01/03/2024 07:16 At the request of: FORREST LEE Procedure: XR foot RT min 3V PROCEDURE: XR foot RT min 3V COMPARISON: None. HISTORY: RIGHT FOOT PAIN FINDINGS: BONES:No acute fracture or dislocation. Moderate enthesopathic spurring ofthe calcaneus at the Achilles and plantar insertions SOFT TISSUES:Negative. No visible soft tissue swelling. EFFUSION:None visible. OTHER: Negative. XR/XR foot RT min 3V IMPRESSION: Mild degenerative changes Electronically authenticated by: JOCELIN GALLAGHER Date: 01/03/2024 07:16 Dictated By: Jocelin Gallagher M.D. Signed By:01/03/24717 DD/ 5 TD/TT: Aerospace Medicine Physician: Authorizing ProviderResult TypeResult StatusGeneric External Data Provider CLINISYNC IMAGINGFinal Result documented in this encounter Visit Diagnoses Not on filedocumented in this encounter Care Teams Team MemberRelationshipSpecialtyStart DateEnd Date Brian Piña MD [address] [place] [address] PCP - GeneralFamily Medicine08/20/22 Justino Galeas MD [address] [place] [phone] Referring KbpupkjczLgqsvvztak49/22/25documented as of this encounter
--- OUTSIDE RECORDS SUMMARY | 2025-01-16 23:26 | XMS_ITS | Clinical Summary ---
Author Organization [employer] tem Address [id number] [address] [place] [address] Care Team Providers Care Motor Vehicle Representative Name Role Phone Brian Lorenzana MD Primary Care Provider Family History Medical HistoryRelationNameCommentsBreast cancerMaternal GrandmotherRelationName StatusCommentsMaternal Grandmother Social History Tobacco UseTypesPacks/DayYears UsedDateSmoking Tobacco: Never AssessedChildcare AnswerDate IjrvmgsvOdpsfgjklGpqmfom71/12/2019EmploymentAnswerDate Recorded QqybagvrpdKmjexzj88/12/2019Purpose - LifeAnswerDate RecordedPurpose and direction in cvzyCdzryxm60/11/2021CommentsNoSex and Gender Information ValueDate RecordedSex Assigned at BirthNot on fileLegal ChyTutzgo89/06/2015 12:04 PM EDTGender IdentityNot on fileSexual OrientationNot on file Last Filed Vital Signs Vital SignReadingTime TakenCommentsBlood Pressure--Pulse--Temperature-- Respiratory Rate--Oxygen Saturation--Inhaled Oxygen Concentration--Amlvqd573.9 kg (260 lb)03/24/2019 8:02 AM YUUMpqjrf170.6 cm (5' 6 )03/24/2019 8:02 AM EST Body Mass Index41.9703/24/2019 8:02 AM EST Plan of Treatment Health MaintenanceDue DateLast DoneCommentsDepression Izjqlxusj66/30/1972Tobacco Eawokcpoj70/30/1972Adult BMI Bdncyagcf81/30/1978DTaP,Tdap and Td Vaccines (1 - Tdap)08/14/1978Zoster (Shingles) Vaccine (1 of 2)08/14/2009Fall Risk Screening 08/14/2024Influenza Hlnuyxq9911/16/2024 Medical Devices Not on file Insurance Care Teams Team MemberRelationshipSpecialtyStart DateEnd Date Brian Lorenzana MD PCP - Wteidwp88/3/18
--- OUTSIDE RECORDS SUMMARY | 2025-01-16 23:26 | XMS_ITS | Encounter Summary ---
Author Organization [facility] Address [address] [place] [address] Care Team Providers Care Charge Coordinator Name Role Phone Brian Piña MD Primary Care Provider + [phone] Justino Galeas MD Unavailable Encounter Details DateTypeDepartmentCare Team (Latest Contact Info)Gibripxxlfe92/02/2025linisync Result Encounter [facility] External Department Unsolicited Provider, Generic External Data Social History Tobacco UseTypesPacks/DayYears UsedDateSmoking Tobacco: NeverSmokeless Tobacco: NeverAlcohol UseStandard Drinks/WeekCommentsNever0 (1 standard drink = 0.6 oz pure alcohol)Caffeine intake: 2-3 cups per dayPHQ-2AnswerDate RecordedPatient Health Questionnaire-2 [id number] Vital SignAnswerDate RecordedOn average, how many days [...] were you homeless or living in a assisted (including now)?No 12/04/2023Humiliation, Afraid, Rape, and Kick [...] relatives?Twice a week01/05/2025How often do you attend lutheran or buddhist services?More than 4 times per year01/05/2025Do you belong to any clubs or organizations such as lutheran groups, unions, fraternal or athletic groups, or [...] medical care, and heating?Not hard at all 01/05/2025[facility] [place] of Occup[facility] Health - Occupational Stress QuestionnaireAnswerDate RecordedDo you feel stress - tense, restless, nervous, or anxious, or unable to sleep at night because yourmind is troubled all the time - these days?Only a ngakdo5801/05/2025Hunger Vital SignAnswerDate Recorded Within the past 12 [...] were you homeless or living in a assisted (including now)? No01/05/2025B1300 Health LiteracyAnswerDate RecordedHow often do you need to have someone help you when you read instructions, pamphlets, or other written material from your doctor or pharmacy?Never01/05/2025CommentsNoSex and Gender InformationValueDate RecordedSex Assigned at BirthNot on fileLegal Sex Pmlozj9205/30/2022 6:42 PM EDTGender IdentityNot on fileSexual OrientationNot on fileOccupationIndustryJob Start DateJob End DateWork part timeNot on fileNot on fileNot on filedocumented as of this encounter Functional Status * AUDIT-C ScoreAnswerDate of GksosafozhApwfvk874/21/2025 11:12 AM Jakub Ring * Q1: How often do you have a drink containing alcohol?AnswerDate of Assessment XvshckYkuig48/21/2025 11:12 AM Jakub Ring * Q2: How many drinks containing alcohol do you have on a typical day when you are drinking?AnswerDate of AssessmentAuthorPatient does not drink01/05/2025 11:12 AM Jhonathan Generic * Q3: How often do you have six or more drinks on one occasion?AnswerDate of LyhjvpfhajWxzplxSvtih63/21/2025 11:12 AM Jakub Ring * Over the past 2 weeks, how often have you been bothered by any of the following problems?QuestionAnswerDate of AssessmentAuthorFeeling down, depressed, or hopelessNot at all05/26/2024 2:30 PM Arabella June [facility] CENTERatient Health Questionnaire-2 Cinrd585 2:30 PM Arabella June, [place] * Little interest or pleasure in doing thingsAnswerDate of AssessmentAuthorNot at all01/05/2025 11:15 AM Jakub Ring documented as of this encounter Plan of Treatment DateTypeDepartmentCare Team (Latest Contact Info)Ogjzykriysc01/19/2025 10:00 AM ESTOffice Visit [facility] [address] [facility] [address] [place] [address] Brian Piña MD [address] [facility] [address] [place] [address] documented as of this encounter Procedures Procedure NamePriorityDate/TimeAssociated DiagnosisCommentsMR ANKLE RIGHT WO IV GVAACVZA38/02/2025 10:43 AM EST documented in this encounter Results * MR ankle right wo IV contrast (03/19/2024 10:43 AM EST)Anatomical Region LateralityModalityLower Extremities, AnkleRightMagnetic ResonanceSpecimen (Source)Anatomical Location / LateralityCollection Method / VolumeCollection TimeReceived Time03/19/2024 10:43 AM EST Narrative 03/19/2024 10:45 AM EST [facility] ?[address] ? [place] [address] ? Magnetic Resonance Report ? Signed ? Patient: NEARHOOD,RATNA L ?MR#: [id number] ?? : 1960 ?Acct:[id number] ?? Age/Sex: 63 / F ?ADM Date: 12/30/24 ?? Loc: MRI ? Attending Dr: Forrest Lee D.P.M. ? Ordering Physician: Forrest Lee D.P.M. ?? Date of Service: 03/16/24 ?? Procedure(s): MR ankle RT wo con ?? Accession Number(s): [id number] ? cc: BRIAN PIÑA ; Forrest Lee D.P.M. ? [facility] ? [address] ? [place] [address] ? Patient Name: ?? RATNA Mcdonald NEARDAYTON ? MRN: [facility]:[id number] ? date: 1960 ?Sex: F ?? Assigned Patient Location: MRI ?? Current Patient Location: ? Accession/Order Number: [id number] ?? Exam Date: 03/16/2024 ??09:50 ?Report Date: 03/19/2024 ??10:43 ? At the request of: ?? FORREST ??ELAN ? Procedure: ??MR ankle RT wo con ? EXAM: MR ankle RT wo con ? REASON FOR EXAM: Right Plantar Fasciitis, Achilles Tendonitis. ? TECHNIQUE: Multiplanar, multisequence imaging of the right ankle was performed ? without contrast ? COMPARISON: Radiographs 01/01/2024. ? FINDINGS: ? Mild to moderate fusiform thickening and intermediate signal the Achilles ?? tendon with distal Achilles enthesophytes consistent with tendinosis. A ?? discrete tear is not evident. Reactive edema superficially at the Achilles ?? tendon insertion could reflect peritenonitis. Trace amount of fluid is present ? in the retrocalcaneal bursa. The plantar fascia is moderately thickened with ?? intermediate signal within inferior calcaneal spur. Reactive edema is noted. ?? Tiny low-grade partial tear is noted involving the medial cord (series 14, ?? image 10). No masslike thickening. ? Laterally, moderate to severe thickening and intermediate signal the peroneal ?? tendons is consistent with tendinosis. The peroneus longus tendon is thin and ?? attenuated at the level the calcaneus, distal to the peroneal tubercle, which ?? could reflect partial tearing, high-grade. A complete rupture not evident. ?? Lateral ligaments appear grossly intact. ? Medially, the medial flexor tendons demonstrate normal thickness and signal ?? without tendinosis or tear. The deep deltoid ligament appears intact. The ?? spring ligament is intact. Lisfranc ligament is intact. ? Anteriorly, the anterior extensor tendons demonstrate normal thickness and ?? signal without tendinosis or tear. ? The bone marrow signal is without fracture or osteonecrosis. The talar dome ?? appears congruent. The subtalar joints intact. The sinus tarsi is ?? nonedematous. ?? The midfoot appears congruent the plantar musculature demonstrates normal bulk ? and signal. Nonspecific subcutaneous edema about the foot and ankle. ? MR/MR ankle RT wo con ?? IMPRESSION: ? 1. Chronic plantar fasciopathy with possible small focal partial tear along ?? the ?? deep margin the medial cord. ?? 2. Moderate Achilles tendinosis without tear. ?? 3. Moderate to severe peroneal tendinosis with suspicion of a small focal ?? high-grade partial tear of the peroneus longus tendon distal to the peroneal ?? tubercle. A complete rupture not evident. ? Electronically authenticated by: TOM ??LORAINE ?? Date: 03/19/2024 ??10:43 ? Dictated By: ?Tom Baron M.D. ? Signed By: ?03/19/24 1045 ? DD/ 1043 ? TD/TT: ? High [employer] Biology Teacher: Procedure Note Radiology, Radiologist, - 03/19/2024 [place] [address] Magnetic Resonance Report Signed Patient: RATNA BAZAN LMR#: [id number] : 1960Acct:[id number] Age/Sex: 63 / FADM Date: 03/16/24 Loc: MRI Attending Dr: Forrest Lee D.P.M. Ordering Physician: Forrest Lee D.P.M. Date of Service: 03/16/24 Procedure(s): MR arnold RT wo con Accession Number(s): [id number] cc: BRIAN PIÑA ; Forrest Lee D.P.M. The [address] [address] Patient Name: RATNA BAZAN MRN: [id number] date: 1960 Sex: F Assigned Patient Location: MRI Current Patient Location: Accession/Order Number: [id number] Exam Date: 03/16/2024 09:50 Report Date: 03/19/2024 10:43 At the request of: FORREST LEE Procedure: MR ankle RT wo con EXAM: MR ankle RT wo con REASON FOR EXAM: Right Plantar Fasciitis, Achilles Tendonitis. TECHNIQUE: Multiplanar, multisequence imaging of the right ankle wasperformed without contrast COMPARISON: Radiographs 01/01/2024. FINDINGS: Mild to moderate fusiform thickening and intermediate signal the Achilles tendon with distal Achilles enthesophytes consistent with tendinosis. A discrete tear is not evident. Reactive edema superficially at the Achilles tendon insertion could reflect peritenonitis. Trace amount of fluid ispresent in the retrocalcaneal bursa. The plantar fascia is moderately thickenedwith intermediate signal within inferior calcaneal spur. Reactive edema isnoted. Tiny low-grade partial tear is noted involving the medial cord (series 14, image 10). No masslike thickening. Laterally, moderate to severe thickening and intermediate signal theperoneal tendons is consistent with tendinosis. The peroneus longus tendon is thinand attenuated at the level the calcaneus, distal to the peroneal tubercle,which could reflect partial tearing, high-grade. A complete rupture not evident. Lateral ligaments appear grossly intact. Medially, the medial flexor tendons demonstrate normal thickness andsignal without tendinosis or tear. The deep deltoid ligament appears intact. The spring ligament is intact. Lisfranc ligament is intact. Anteriorly, the anterior extensor tendons demonstrate normal thickness and signal without tendinosis or tear. The bone marrow signal is without fracture or osteonecrosis. The talardome appears congruent. The subtalar joints intact. The sinus tarsi is nonedematous. The midfoot appears congruent the plantar musculature demonstrates normalbulk and signal. Nonspecific subcutaneous edema about the foot and ankle. MR/MR ankle RT wo con IMPRESSION: 1. Chronic plantar fasciopathy with possible small focal partial tearalong the deep margin the medial cord. 2. Moderate Achilles tendinosis without tear. 3. Moderate to severe peroneal tendinosis with suspicion of a small focal high-grade partial tear of the peroneus longus tendon distal to theperoneal tubercle. A complete rupture not evident. Electronically authenticated by: TOM BARON Date: 03/19/2024 10:43 Dictated By: Tom Baron M.D. Signed By:03/19/24 1045 DD/ 1043 TD/TT: [employer] Teacher: Authorizing ProviderResult TypeResult StatusGeneric External Data ProviderIMG MRI PROCEDURESFinal Result documented in this encounter Visit Diagnoses Not on filedocumented in this encounter Care Teams Team MemberRelationshipSpecialtyStart DateEnd Date Brian Piña MD [address] [facility] [address] [place] [address] PCP - GeneralFamily Medicine08/20/22 Justino Galeas MD [address] [place] [id number] Referring QyhkpflklSjmfqbddkg98/22/25documented as of this encounter
--- OUTSIDE RECORDS SUMMARY | 2025-01-16 23:26 | XMS_ITS | Encounter Summary ---
Author Organization [facility] Address [address] [place] [address] Care Team Providers Care Corporate Licensed Broker Name Role Phone Brian Lorenzana MD Primary Care Provider + [phone] Encounter Details DateTypeDepartmentCare Team (Latest Contact Info)Llxxtewdqsy25/21/2025Travel Social History Tobacco UseTypesPacks/DayYears UsedDateSmoking Tobacco: NeverSmokeless Tobacco: NeverAlcohol UseStandard Drinks/WeekCommentsNever0 (1 standard drink = 0.6 oz pure alcohol)Caffeine intake: 2-3 cups per dayPHQ-2AnswerDate RecordedPatient Health Questionnaire-2 Rghxh389Exercise Vital SignAnswerDate RecordedOn average, how many days [...] Times Moved in the Last YearNot on file09/18/2024At any time in the past 12 months, [...] relatives?Twice a week01/05/2025How often do you attend religion or zoroastrian services?More than 4 times per year01/05/2025Do you belong to any clubs or organizations such as religion groups, unions, fraternal or athletic groups, or [...] medical care, and heating?Not hard at all 01/05/2025[facility] [place] of Occupational Health - Occupational Stress QuestionnaireAnswerDate RecordedDo you feel stress - tense, restless, nervous, or anxious, or unable to sleep at night because yourmind is troubled all the time - these days?Only a iptnuv6301/05/2025Hunger Vital SignAnswerDate Recorded Within the past 12 [...] RecordedSex Assigned at BirthNot on fileLegal Sex Yhjvnj8205/30/2022 6:42 PM EDTGender IdentityNot on fileSexual OrientationNot on fileOccupationIndustryJob Start DateJob End DateWork part timeNot on fileNot on fileNot on filedocumented as of this encounter Functional Status * AUDIT-C ScoreAnswerDate of RbbqfvpzmzSmfvto718/21/2025 11:12 AM Jakub Ring * Q1: How often do you have a drink containing alcohol?AnswerDate of Assessment StprtsWpfcj75/21/2025 11:12 AM Jakub Ring * Q2: How many drinks containing alcohol do you have on a typical day when you are drinking?AnswerDate of AssessmentAuthorPatient does not drink01/05/2025 11:12 AM EDTMychart, Generic * Q3: How often do you have six or more drinks on one occasion?AnswerDate of WzgkkuxpilKtdvolByfka69/21/2025 11:12 AM EDTMychart, Generic * Little interest or pleasure in doing thingsAnswerDate of AssessmentAuthorNot at all01/05/2025 11:15 AM EDTMychart, Generic documented as of this encounter Plan of Treatment DateTypeDepartmentCare Team (Latest Contact Info)Oicfqimmboa16/19/2025 10:00 AM ESTOffice Visit [facility] [address] [place] [address] [place] [address] Brian Lorenzana MD [address] [facility] [address] [place] [address] documented as of this encounter Visit Diagnoses Not on filedocumented in this encounter Care Teams Team MemberRelationshipSpecialtyStart DateEnd Date Brian Lorenzana MD [address] [place] [address] PCP - GeneralFamily Medicine08/20/22documented as of this encounter
--- OUTSIDE RECORDS SUMMARY | 2025-01-16 23:26 | XMS_ITS | Encounter Summary ---
Author Organization [facility] Address [address] [place] [address] Care Team Providers Care Linoleum Mechanic Name Role Phone Brian Piña MD Primary Care Provider + [phone] Justino Galeas MD Unavailable Encounter Details DateTypeDepartmentCare Team (Latest Contact Info)Uqkkhahzwvq26/08/2024linisync Result Encounter [facility] External Department Unsolicited Provider, Generic External Data Social History Tobacco UseTypesPacks/DayYears UsedDateSmoking Tobacco: NeverSmokeless Tobacco: NeverAlcohol UseStandard Drinks/WeekCommentsNever0 (1 standard drink = 0.6 oz pure alcohol)Caffeine intake: 2-3 cups per dayPHQ-2AnswerDate RecordedPatient Health Questionnaire-2 [id number] Vital SignAnswerDate RecordedOn average, how many days [...] were you homeless or living in a custodial (including now)?No 12/04/2023Humiliation, Afraid, Rape, and Kick [...] relatives?Twice a week01/05/2025How often do you attend voodoo or yazidism services?More than 4 times per year01/05/2025Do you belong to any clubs or organizations such as voodoo groups, unions, fraternal or athletic groups, or [...] medical care, and heating?Not hard at all 01/05/2025[facility] [place] [facility] Occup[facility] Health - Occupational Stress QuestionnaireAnswerDate RecordedDo you feel stress - tense, restless, nervous, or anxious, or unable to sleep at night because yourmind is troubled all the time - these days?Only a ioxqaw9901/05/2025Hunger Vital SignAnswerDate Recorded Within the past 12 [...] were you homeless or living in a custodial (including now)? No01/05/2025B1300 Health LiteracyAnswerDate RecordedHow often do you need to have someone help you when you read instructions, pamphlets, or other written material from your doctor or pharmacy?Never01/05/2025CommentsNoSex and Gender InformationValueDate RecordedSex Assigned at BirthNot on fileLegal Sex Dxncol8505/30/2022 6:42 PM EDTGender IdentityNot on fileSexual OrientationNot on fileOccupationIndustryJob Start DateJob End DateWork part timeNot on fileNot on fileNot on filedocumented as of this encounter Functional Status * AUDIT-C ScoreAnswerDate of TvssjnuvtjFmdqxl834/21/2025 11:12 AM Jakub Ring * Q1: How often do you have a drink containing alcohol?AnswerDate of Assessment GodnfjHxntd72/21/2025 11:12 AM Jhonathan Generic * Q2: How many drinks containing alcohol do you have on a typical day when you are drinking?AnswerDate of AssessmentAuthorPatient does not drink01/05/2025 11:12 AM Jhonathan Generic * Q3: How often do you have six or more drinks on one occasion?AnswerDate of LaseiijpmdOitmqqNdagm93/21/2025 11:12 AM Jakub Ring * Over the past 2 weeks, how often have you been bothered by any of the following problems?QuestionAnswerDate of AssessmentAuthorFeeling down, depressed, or hopelessNot at all05/26/2024 2:30 PM Arabella June [facility]ITALatient Health Questionnaire-2 Leviz488 2:30 PM Arabella June, [place] * Little interest or pleasure in doing thingsAnswerDate of AssessmentAuthorNot at all01/05/2025 11:15 AM Jakub Ring documented as of this encounter Plan of Treatment DateTypeDepartmentCare Team (Latest Contact Info)Mepjmxpqxnd00/19/2025 10:00 AM ESTOffice Visit N[facility] [address] 112 [facility] [address] [place] [address] Brian Piña MD 112 [facility] 100 [place] [address] documented as of this encounter Procedures Procedure NamePriorityDate/TimeAssociated DiagnosisCommentsCA ECHO DOPPLER CIBJTETQ62/08/2024 3:42 PM EDT documented in this encounter Results * CA ECHO DOPPLER COMPLETE (09/23/2023 3:42 PM EDT)Anatomical RegionLaterality ModalityOtherSpecimen (Source)Anatomical Location / LateralityCollection Method / VolumeCollection TimeReceived Time09/23/2023 3:42 PM EDT Narrative 09/23/2023 3:43 PM EDT [facility] ?[address] ? [place] [address] ? Cardiology Report ? Signed ? Patient: NEARHOOD,RATNA L ?MR#: [id number] ?? : 1960 ?Acct:[id number] ?? Age/Sex: 63 / F ?ADM Date: 07/08/24 ?? Loc: CARD ? Attending Dr: Shy Sandhu M.D. ? Ordering Physician: Shy Sandhu M.D. ?? Date of Service: 09/23/23 ?? Procedure(s): CA echo doppler complete ?? Accession Number(s): [id number] ? cc: Shy Sandhu M.D.; BRIAN PIÑA ? Patient Name: ? RATNA NEARHOOD ? MR#: [id number] ? : 1960 ? Exam Date: 09/23/2023 ?? Ordering Doctor: DR SHY SANDHU M.D. ? ECHOCARDIOGRAM REPORT ? PROCEDURE: ? CA ECHO DOPPLER COMPLETE ? INDICATIONS: ? Palpitations ? COMPARISON: ? None. ? DESCRIPTION: ? COMPLETE ECHOCARDIOGRAM Real-time transthoracic ?? echocardiography with 2D, M-mode, spectral and color flow Doppler performed. ? QUALITY: ? Technical quality was good. ? LEFT VENTRICLE: ? Normal chamber size. Borderline left ventricular ?? hypertrophy. ? LV EF: ? Global left ventricular systolic function is normal; visually ?? estimated ejection fraction is 55 to 60%. ??No obvious wall motion ?? abnormalities. ?? DIASTOLIC: ? Normal diastolic function. ?? ATRIAL SEPTUM: ? Visually appears intact. ?? LEFT ATRIUM: ? Normal chamber size. ?? RIGHT ATRIUM: ? Normal chamber size. ?? RIGHT VENTRICLE: ? Normal chamber size. Normal right ventricular systolic ?? function. ? TRICUSPID VALVE: ? Normal mobility and thickness. No stenosis with mild ?? regurgitation. Doppler studies reveal mildly (35-45) elevated right sided ?? pressures. RVSP 42 mmHg ? MITRAL VALVE: ? Normal mobility and thickness. ?? No evidence of mitral valve ?? stenosis. ??There is no mitral annular calcification. Trivial mitral ?? regurgitation. ? AORTIC VALVE: ? Normal trileaflet appearance. No visible sclerosis. ??Normal ?? leaflet mobility. ??No evidence of aortic valve stenosis. No aortic ?? regurgitation. ? AORTIC ROOT: ? Normal diameter and appearance. Ascending aorta is normal in ?? size. ? PULMONIC VALVE: ? Normal thickness and mobility. No stenosis. Trivial ?? regurgitation. ? PERICARDIUM: ? Anterior free space; trivial effusion versus fat pad. ? IVC: ? IVC is dilated (2.2 cm) with no collapse. ? CONCLUSION: ? 1. Global left ventricular systolic function is normal; visually estimated ?? ejection fraction is 55 to 60% ?? 2. Normal right ventricular size and systolic function ?? 3. Borderline left ventricular hypertrophy ?? 4. Normal diastolic function ?? 5. Mild tricuspid regurgitation ?? 6. Mildly elevated right ventricular systolic pressure; RVSP 42 mmHg ?? 7. Anterior free space; trivial effusion versus fat pad ? Adult Echocardiography Procedure Report ?? Left Ventricle ?? LVEDD (3.7 - 5.6 cm): ? 4.48 cm ?? LVESD (2.2 - 4.0 cm): ? 2.98 cm ?? LVIVS thickness (0.6 - 1.2 cm): ? 1.11 cm ?? LVPW thickness (0.5 - 1.0 cm): ? 1.01 cm ?? e': ? 0.07 m/s ?? E - e': ? 10.71 ?? LVOT Max Gradient: ? 2.87 mm[Hg] ?? LVOT Area (cm2): ? 0.85 m/s ?? Peak Velocity (LVOT): ? 0.85 m/s ?? Mean Velocity (LVOT): ? 0.59 m/s ?? LVOT Diameter ? 2.04 cm ?? Left Atrium ?? LA Volume Index (2D A2C): ? 32.44 ml/m2 ?? Left Atrium Systolic Dimension: ? 3.18 cm ?? Mitral Valve ?? MV E to A Ratio: ? 0.75 ?? Mitral Valve A-Wave Peak Velocity: ? 0.95 m/s ?? Mitral Valve E-Wave Peak Velocity: ? 0.71 m/s ?? Right Ventricle ?? Aorta ?? AO Root Diam: ? 3.43 cm ?? Ascending Ao Diam: ? 2.98 cm ?? Aortic Valve ?? AoV Area (Peak Michael): ? 2.27 cm2, 2.27 cm2 ?? AoV Area (VTI): ? 2.33 cm2, 2.33 cm2 ?? Peak Velocity(Antegrade Flow): ? 1.21 m/s ?? Peak Gradient(Antegrade Flow): ? 5.90 mm[Hg] ?? Mean Velocity(Antegrade Flow): ? 0.85 m/s ?? Mean Gradient(Antegrade Flow): ? 3.19 mm[Hg] ?? Velocity Time Integral: ? 29.01 cm ?? Tricuspid Valve ?? Peak Velocity (Regurgitant Flow): ? 2.59 m/s ?? Pulmonic Valve ?? Mean Gradient: ? 2.45 mm[Hg] ?? Mean Velocity: ? 0.72 m/s ?? Peak Velocity: ? 1.05 m/s, 0.99 m/s ?? Peak Gradient: ? 4.38 mm[Hg], 3.89 mm[Hg] ?? Right Atrium ?? Right Atrium Systolic Pressure: ? 36.48 ml, 36.48 ml ? Dictated by: Shy Sandhu M.D. on 09/23/2023 at 15:37 ? Approved by: Shy Sandhu M.D. on 09/23/2023 at 15:42 ? Dictated By: ?Shy Sandhu M.D. ? Signed By: ?09/23/23 1543 ? DD/ 1542 ? TD/TT: ? Wood Treating Inspector: Procedure Note Radiology, Radiologist, MD - 09/23/[address] [address] Cardiology Report Signed Patient: RATNA BAZAN LMR#: [id number] : 1960Acct:[id number] Age/Sex: 63 / FADM Date: 09/23/23 Loc: CARD Attending Dr: Shy Sandhu M.D. Ordering Physician: Shy Sandhu M.D. Date of Service: 09/23/23 Procedure(s): CA echo doppler complete Accession Number(s): [id number] cc: Shy Sandhu M.D.; BRIAN PIÑA Patient Name: RATNA BAZAN MR#: [id number] : 1960 Exam Date: 09/23/2023 Ordering Doctor: DR SHY SANDHU M.D. ECHOCARDIOGRAM REPORT PROCEDURE: CA ECHO DOPPLER COMPLETE INDICATIONS: Palpitations COMPARISON: None. DESCRIPTION: COMPLETE ECHOCARDIOGRAM Real-time transthoracic echocardiography with 2D, M-mode, spectral and color flow Dopplerperformed. QUALITY: Technical quality was good. LEFT VENTRICLE: Normal chamber size. Borderline left ventricular hypertrophy. LV EF: Global left ventricular systolic function is normal; visually estimated ejection fraction is 55 to 60%. No obvious wall motion abnormalities. DIASTOLIC: Normal diastolic function. ATRIAL SEPTUM: Visually appears intact. LEFT ATRIUM: Normal chamber size. RIGHT ATRIUM: Normal chamber size. RIGHT VENTRICLE: Normal chamber size. Normal right ventricularsystolic function. TRICUSPID VALVE: Normal mobility and thickness. No stenosis with mild regurgitation. Doppler studies reveal mildly (35-45) elevated right sided pressures. RVSP 42 mmHg MITRAL VALVE: Normal mobility and thickness. No evidence of mitralvalve stenosis. There is no mitral annular calcification. Trivial mitral regurgitation. AORTIC VALVE: Normal trileaflet appearance. No visible sclerosis.Normal leaflet mobility. No evidence of aortic valve stenosis. No aortic regurgitation. AORTIC ROOT: Normal diameter and appearance. Ascending aorta is normalin size. PULMONIC VALVE: Normal thickness and mobility. [...] Pressure: 36.48 ml, 36.48 ml Dictated by: Shy Sandhu M.D. on 09/23/2023 at 15:37 Approved by: Shy Sandhu M.D. on 09/23/2023 at 15:42 Dictated By: Shy Sandhu M.D. Signed By:09/23/23 1543 DD/ 1542 TD/TT: Wood Treating Inspector: Authorizing ProviderResult TypeResult StatusGeneric External Data Provider CLINIS[facility]NC IMAGINGFinal Result documented in this encounter Visit Diagnoses Not on filedocumented in this encounter Care Teams Team MemberRelationshipSpecialtyStart DateEnd Date Brian Piña MD 112 [facility] 100 [place] [address] PCP - GeneralFamily Medicine08/20/22 Justino Galeas MD [address] [place] [phone] Referring OgkhjzileRwfthmbkzr16/22/25documented as of this encounter
--- OUTSIDE RECORDS SUMMARY | 2025-01-16 23:26 | XMS_ITS | Encounter Summary ---
Author Organization [facility] Address [address] [place] [address] Care Team Providers Care Product Manager Medical Device Name Role Phone Brian Lorenzana MD Primary Care Provider + [phone] Justino Galeas MD Unavailable Encounter Details DateTypeDepartmentCare Team (Latest Contact Info)Bqmiooozlvm57/22/2025Travel Social History Tobacco UseTypesPacks/DayYears UsedDateSmoking Tobacco: NeverSmokeless Tobacco: NeverAlcohol UseStandard Drinks/WeekCommentsNever0 (1 standard drink = 0.6 oz pure alcohol)Caffeine intake: 2-3 cups per dayPHQ-2AnswerDate RecordedPatient Health Questionnaire-2 Iobmc241Exercise Vital SignAnswerDate RecordedOn average, how many days [...] were you homeless or living in a nursing home (including now)?No 12/04/2023Humiliation, Afraid, Rape, and [...] relatives?Twice a week01/05/2025How often do you attend mormonism or zoroastrian services?More than 4 times per year01/05/2025Do you belong to any clubs or organizations such as mormonism groups, unions, fraternal or athletic groups, or [...] medical care, and heating?Not hard at all 01/05/2025[facility] [place] of Occupational Health - Occupational Stress QuestionnaireAnswerDate RecordedDo you feel stress - tense, restless, nervous, or anxious, or unable to sleep at night because yourmind is troubled all the time - these days?Only a fxtjgi5701/05/2025Hunger Vital SignAnswerDate Recorded Within the past 12 [...] were you homeless or living in a nursing home (including now)? No01/05/2025B1300 Health LiteracyAnswerDate RecordedHow often do you need to have someone help you when you read instructions, pamphlets, or other written material from your doctor or pharmacy?Never01/05/2025CommentsNoSex and Gender InformationValueDate RecordedSex Assigned at BirthNot on fileLegal Sex Nfxpbd0005/30/2022 6:42 PM EDTGender IdentityNot on fileSexual OrientationNot on fileOccupationIndustryJob Start DateJob End DateWork part timeNot on fileNot on fileNot on filedocumented as of this encounter Plan of Treatment DateTypeDepartmentCare Team (Latest Contact Info)Vfcargbdaey33/19/2025 10:00 AM ESTOffice Visit [facility] [address] [facility] 100 [place] [address] Brian Lorenzana MD 112 [facility] 100 [place] [address] (Fax) documented as of this encounter Visit Diagnoses Not on filedocumented in this encounter Care Teams Team MemberRelationshipSpecialtyStart DateEnd Date Biran Lorenzana MD 112 [place] [facility] 100 [place] [address] (Fax) PCP - GeneralFamily Medicine08/20/22 Justino Galeas MD [address] [place] [phone] Referring HdyqbudejTzieuwkpzh85/22/25documented as of this encounter
[2025-01-16 23:31] VITALS: BP 171/119; PULSE 80; TEMP 36.6; O2SAT 97; BMI 51.6
--- NOTE | 2025-01-16 23:35 | ED_ITS ---
HPI HPI - General Adult General Chief complaint: Back Pain/Injury Stated complaint: lower back pain Time Seen by Provider: 01/16/25 23:18 History of Present Illness HPI narrative: 64-year-old female presents for left lower back pain. It started when she went to get up out of the chair about 7 hours ago. She did not fall. The pain does not radiate and she has had no dysuria. It is worse in certain positions and she feels like something pinched in her back. The pain is severe. Related Data Home Medications ?Medication ?Instructions ?Recorded ?Confirmed aspirin 81 mg tablet,delayed 81 mg PO DAILY 01/16/25 1 03/18/24 release (Adult Aspirin Regimen) atorvastatin 40 mg tablet 40 mg PO DAILY 01/16/2504/11 flecainide 100 mg tablet 100 mg PO Q12H 01/16/2504/11 metoprolol tartrate 100 mg tablet 100 mg PO Q12H 01/1601/16/25 Previous Rx's ?Medication ?Instructions ?Recorded methocarbamol 750 mg tablet 750 mg PO Q8H #20 tabs 05/12 prednisone 10 mg tablet See Rx Instructions .Route 1 03/19/24 .COMPLEX #30 tabs tramadol 50 mg tablet 50 mg PO Q6H PRN pain 5 days #20 01/17/25 tabs Allergies Allergy/AdvReac Type Severity Reaction Status Date / Time acetaminophen (From Vicodin) Allergy Severe Wheezing Verified 01/16/25 23:31 hydrocodone (From Vicodin) Allergy Severe Wheezing Verified 01/16/25 23:31 oxycodone (From Percocet) Allergy Severe Wheezing Verified 01/16/25 23:31 Sulfa (Sulfonamide Allergy Severe Wheezing Verified 01/16/25 23:31 Antibiotics) Opioid HPI Opioid Management Most Recent Opioid Data: Last Pain Scale 9 01/16/25, 23:31 Last MAR Pain Assessment 01/16/25, 23:42 Review of Systems ROS0 Narrative A ten point review of systems is negative except as noted above. Exam Narrative Exam Narrative: Nurses note and vital signs reviewed General:The patient appears uncomfortable and is sitting upright on a chair. She had difficulty walking back to the examination room. Skin:Warm, dry, no pallor noted.There is no rash noted. Head:Normocephalic, atraumatic Eye: Normal conjunctiva, no drainage Ears, Nose, Mouth, and Throat: oral mucosa is moist. Nares patent. Cardiovascular:Regular Rate and Rhythm Respiratory:Patient is in no distress, no accessory muscle use, lungs are clear to auscultation, no wheezing, rales or rhonchi Back: No bruise or rash or focal area of tenderness to palpation. GI: Soft and nontender Musculoskeletal: The patient has no joint swelling Neurological: Awake and alert. Motor strength appears to be intact in her lower extremities Psychiatric:Cooperative Constitutional Vital Signs, click to edit/add: Last Vital Signs Temp 97.8 F 01/16/25 23:31 Pulse 80 01/16/25 23:31 Resp 28 H 01/16/25 23:31 BP 171/119 H 01/16/25 23:31 Pulse Ox 97 01/16/25 23:31 O2 Del Method Room Air 01/16/25 23:31 Course Vital Signs Vital signs: Vital Signs Temperature 97.8 F 01/16/25 23:31 Pulse Rate 80 01/16/25 23:31 Respiratory Rate 28 H 01/16/25 23:31 Blood Pressure 171/119 H 01/16/25 23:31 Pulse Oximetry 97 01/16/25 23:31 Oxygen Delivery Method Room Air 01/16/25 23:31 Temperature 97.8 F 01/16/25 23:31 Pulse Rate 80 01/16/25 23:31 Respiratory Rate 28 H 01/16/25 23:31 Blood Pressure 171/119 H 01/16/25 23:31 Pulse Oximetry 97 01/16/25 23:31 Oxygen Delivery Method Room Air 01/16/25 23:31 Medical Decision Making [facility] Narrative Medical decision making narrative: X-rays of her lumbar spine and my interpretation do not show any acute findings. Retrolisthesis is noted. She was given IM Toradol and Norflex and seems to be improved. She states that she can take Ultram but cannot take other narcotic pain medications because they make her sick. She was prescribed Ultram, methocarbamol, and prednisone and will follow-up with her PCP. Treatment diagnosis and follow-up were discussed with the patient. Differential Diagnosis Differential Diagnosis: Compression fracture, muscle strain Imaging Data X-ray lumbar spine: My impression: Retrolisthesis of L2 on L3 Discharge Plan Discharge Chief Complaint: Back Pain/Injury Clinical Impression: Low back pain Patient Disposition: Home, Self-Care Time of Disposition Decision: 00:37 Condition: Good Mode of Transportation: Private Vehicle Prescriptions / Home Meds: New prednisone 10 mg tablet See Rx Instructions .ROUTE .COMPLEX Qty: 30 0RF Rx Instructions: 4 by mouth daily for three days then 3 by mouth daily for three days then 2 by mouth daily for three days then 1 by mouth daily for three days methocarbamol 750 mg tablet 750 mg PO Q8H Qty: 20 0RF tramadol 50 mg tablet 50 mg PO Q6H PRN (Reason: pain) 5 Days Qty: 20 0RF No Action atorvastatin 40 mg tablet 40 mg PO DAILY flecainide 100 mg tablet 100 mg PO Q12H metoprolol tartrate 100 mg tablet 100 mg PO Q12H aspirin [Adult Aspirin Regimen] 81 mg tablet,delayed release (DR/EC) 81 mg PO DAILY Print Language: German Instructions: Acute Low Back Pain (ED) Additional Instructions: Have your blood pressure rechecked by your family doctor. Referrals: THOMAS PIÑA [Primary Care Provider, Family Practice] - 1 week
[2025-01-16] MEDS: KETOROLAC TROMETHAMINE 60 MG/2 ML VIAL IM (23:42)
[2025-01-16] MEDS: ORPHENADRINE 60 MG/2 ML VIAL IM (23:45)
[2025-01-17 00:52] VITALS: BP 184/110; PULSE 80; O2SAT 96
== END 2025-01-17 00:54 | disposition home or self-care (01) ==
PROVIDERS: Emergency Provider Emergency Medicine; PCP Family Medicine
DX: M54.50 Low back pain, unspecified (principal)
CPT/HCPCS: 72100; 99284; J1885; J2360

== ENCOUNTER 2025-01-18 16:58 | Emergency (ER) | payer MEDICARE, BC, OTHER, SELFPAY ==
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
[2025-01-18 17:04] VITALS: BP 183/104; PULSE 78; TEMP 36.6; O2SAT 98; BMI 51.6
--- OUTSIDE RECORDS SUMMARY | 2025-01-18 17:27 | XMS_ITS | Encounter Summary ---
Author Organization [facility] Address [address] [place] [address] Care Team Providers Care Mesh Worker Name Role Phone Brian Piña MD Primary Care Provider + [phone] Justino Galeas MD Unavailable Encounter Details DateTypeDepartmentCare Team (Latest Contact Info)Mqhbupqiccw50/02/2025linisync Result Encounter [facility] External Department Unsolicited Provider, Generic External Data Social History Tobacco UseTypesPacks/DayYears UsedDateSmoking Tobacco: NeverSmokeless Tobacco: NeverAlcohol UseStandard Drinks/WeekCommentsNever0 (1 standard drink = 0.6 oz pure alcohol)Caffeine intake: 2-3 cups per dayPHQ-2AnswerDate RecordedPatient Health Questionnaire-2 Kacxg800Exercise Vital SignAnswerDate RecordedOn average, how many days [...] were you homeless or living in a fdc (including now)?No 12/04/2023Humiliation, Afraid, Rape, and Kick [...] week01/05/2025How often do you attend voodoo or anabaptism services?More than 4 times per year01/05/2025Do you [...] medical care, and heating?Not hard at all 01/05/2025[facility] [place] of Occupational Health - Occupational Stress QuestionnaireAnswerDate RecordedDo you feel stress - tense, restless, nervous, or anxious, or unable to sleep at night because yourmind is troubled all the time - these days?Only a sfayvb1901/05/2025Hunger Vital SignAnswerDate Recorded Within the past 12 [...] were you homeless or living in a fdc (including now)? No01/05/2025B1300 Health LiteracyAnswerDate RecordedHow often do you need to have someone help you when you read instructions, pamphlets, or other written material from your doctor or pharmacy?Never01/05/2025CommentsNoSex and Gender InformationValueDate RecordedSex Assigned at BirthNot on fileLegal Sex Dugjsb7605/30/2022 6:42 PM EDTGender IdentityNot on fileSexual OrientationNot on fileOccupationIndustryJob Start DateJob End DateWork part timeNot on fileNot on fileNot on filedocumented as of this encounter Functional Status * AUDIT-C ScoreAnswerDate of MvqkajwjrlNjweas467/21/2025 11:12 AM Jakub Ring * Q1: How often do you have a drink containing alcohol?AnswerDate of Assessment UtvqijVkatl18/21/2025 11:12 AM Jakub Ring * Q2: How many drinks containing alcohol do you have on a typical day when you are drinking?AnswerDate of AssessmentAuthorPatient does not drink01/05/2025 11:12 AM Jhonathan Generic * Q3: How often do you have six or more drinks on one occasion?AnswerDate of CryxojseuxKqswzyPyfot03/21/2025 11:12 AM Jakub Ring * Over the past 2 weeks, how often have you been bothered by any of the following problems?QuestionAnswerDate of AssessmentAuthorFeeling down, depressed, or hopelessNot at all05/26/2024 2:30 PM Arabella June [facility]ENTER[facility]ient Health Questionnaire-2 Gfpvc676 2:30 PM Arabella June, [place] * Little interest or pleasure in doing thingsAnswerDate of AssessmentAuthorNot at all01/05/2025 11:15 AM Jakub Ring documented as of this encounter Plan of Treatment DateTypeDepartmentCare Team (Latest Contact Info)Lcwbrreewny45/19/2025 10:00 AM ESTOffice Visit [facility] [address] 112 [facility] 100 [place] [address] Brian Piña MD 112 [facility] 100 [place] [address] documented as of this encounter Procedures Procedure NamePriorityDate/TimeAssociated DiagnosisCommentsMR ANKLE RIGHT WO IV FQNDKBWS24/02/2025 10:43 AM EST documented in this encounter Results * MR ankle right wo IV contrast (03/19/2024 10:43 AM EST)Anatomical Region LateralityModalityLower Extremities, AnkleRightMagnetic ResonanceSpecimen (Source)Anatomical Location / LateralityCollection Method / VolumeCollection TimeReceived Time03/19/2024 10:43 AM EST Narrative 03/19/2024 10:45 AM EST [facility] ?[address] ? [place] [address] ? Magnetic Resonance Report ? Signed ? Patient: NEARHOOD,RATNA L ?MR#: [id number] ?? : 1960 ?Acct:[id number] ?? Age/Sex: 63 / F ?ADM Date: 12/30/24 ?? Loc: MRI ? Attending Dr: Forrest Lee D.P.M. ? Ordering Physician: Forrest Lee D.P.M. ?? Date of Service: 03/16/24 ?? Procedure(s): MR ankle RT wo con ?? Accession Number(s): [id number] ? cc: BRIAN PIÑA ; Forrest Lee D.P.M. ? [facility] ? [address] ? [place] [address] ? Patient Name: ?? RATNA Mcdonald NEAR[place]TON ? MRN: [facility]:[id number] ? date: 1960 ?Sex: F ?? Assigned Patient Location: MRI ?? Current Patient Location: ? Accession/Order Number: [id number] ?? Exam Date: 03/16/2024 ??09:50 ?Report Date: [...] 1045 ? DD/ 1043 ? TD/TT: ? Water Resource Manager: Procedure Note Radiology, Radiologist, - 03/19/2024 [place] [address] Magnetic Resonance Report Signed Patient: RATNA BAZAN LMR#: [id number] : 1960Acct:[id number] Age/Sex: 63 / FADM Date: 03/16/24 Loc: MRI Attending Dr: Forrest Lee D.P.M. Ordering Physician: Forrest Lee D.P.M. Date of Service: 03/16/24 Procedure(s): MR arnold RT wo con Accession Number(s): [id number] cc: BRIAN PIÑA ; Forrest Lee D.P.M. The [address] [address] Patient Name: RATNA BAZAN MRN: [id number] date: 1960 Sex: F Assigned Patient Location: MRI Current Patient Location: Accession/Order Number: [id number] Exam Date: 03/16/2024 09:50 Report Date: 03/19/2024 [...] M.D. Signed By:03/19/24 1045 DD/ 1043 TD/TT: Water Resource Manager: Authorizing ProviderResult TypeResult StatusGeneric External Data ProviderIMG MRI PROCEDURESFinal Result documented in this encounter Visit Diagnoses Not on filedocumented in this encounter Care Teams Team MemberRelationshipSpecialtyStart DateEnd Date Brian Piña MD 112 [facility] 100 [place] [address] PCP - GeneralFamily Medicine08/20/22 Justino Galeas MD [address] [place] [phone] Referring BqwvnhkdiFtzbqcpndu37/22/25documented as of this encounter
--- OUTSIDE RECORDS SUMMARY | 2025-01-18 17:27 | XMS_ITS | Encounter Summary ---
Author Organization [facility] Address [address] [place] [address] Care Team Providers Care Wetlands Technician Name Role Phone Brian Lorenzana MD Primary Care Provider + [phone] Encounter Details DateTypeDepartmentCare Team (Latest Contact Info)Etrnfkyowqw89/21/2025Travel Social History Tobacco UseTypesPacks/DayYears UsedDateSmoking Tobacco: NeverSmokeless Tobacco: NeverAlcohol UseStandard Drinks/WeekCommentsNever0 (1 standard drink = 0.6 oz pure alcohol)Caffeine intake: 2-3 cups per dayPHQ-2AnswerDate RecordedPatient Health Questionnaire-2 Itbxr786Exercise Vital SignAnswerDate RecordedOn average, how many days [...] were you homeless or living in a prison (including now)?No 12/04/2023Humiliation, Afraid, Rape, and Kick [...] relatives?Twice a week01/05/2025How often do you attend rastafari or samaritan services?More than 4 times per year01/05/2025Do you belong to any clubs or organizations such as rastafari groups, unions, fraternal or athletic groups, or [...] medical care, and heating?Not hard at all 01/05/2025[facility] [place] of Occupational Health - Occupational Stress QuestionnaireAnswerDate RecordedDo you feel stress - tense, restless, nervous, or anxious, or unable to sleep at night because yourmind is troubled all the time - these days?Only a nnmbep1901/05/2025Hunger Vital SignAnswerDate Recorded Within the past 12 [...] were you homeless or living in a prison (including now)? No01/05/2025B1300 Health LiteracyAnswerDate RecordedHow often do you need to have someone help you when you read instructions, pamphlets, or other written material from your doctor or pharmacy?Never01/05/2025CommentsNoSex and Gender InformationValueDate RecordedSex Assigned at BirthNot on fileLegal Sex Fppcmd3505/30/2022 6:42 PM EDTGender IdentityNot on fileSexual OrientationNot on fileOccupationIndustryJob Start DateJob End DateWork part timeNot on fileNot on fileNot on filedocumented as of this encounter Functional Status * AUDIT-C ScoreAnswerDate of CvefijuqodXzxvfp704/21/2025 11:12 AM Jakub Ring * Q1: How often do you have a drink containing alcohol?AnswerDate of Assessment BffkgbUqxjf41/21/2025 11:12 AM Jakub Ring * Q2: How many drinks containing alcohol do you have on a typical day when you are drinking?AnswerDate of AssessmentAuthorPatient does not drink01/05/2025 11:12 AM EDTMychart, Generic * Q3: How often do you have six or more drinks on one occasion?AnswerDate of UncqvntgmmXfovunAjhmj06/21/2025 11:12 AM EDTMychart, Generic * Little interest or pleasure in doing thingsAnswerDate of AssessmentAuthorNot at all01/05/2025 11:15 AM EDTMychart, Generic documented as of this encounter Plan of Treatment DateTypeDepartmentCare Team (Latest Contact Info)Quhcdyhxrtp67/19/2025 10:00 AM ESTOffice Visit [facility] [address] [place] [address] Brian Lorenzana MD [address] [facility] [address] [place] [address] documented as of this encounter Visit Diagnoses Not on filedocumented in this encounter Care Teams Team MemberRelationshipSpecialtyStart DateEnd Date Brian Lorenzana MD [address] [place] [address] PCP - GeneralFamily Medicine08/20/22documented as of this encounter
--- OUTSIDE RECORDS SUMMARY | 2025-01-18 17:27 | XMS_ITS | Clinical Summary ---
Author Organization [facility] Address [id number] [address] [place] [address] Care Team Providers Care Audio Video Technician Name Role Phone Brian Lorenzana MD Primary Care Provider [phone] Family History Medical HistoryRelationNameCommentsBreast cancerMaternal GrandmotherRelationName StatusCommentsMaternal Grandmother Social History Tobacco UseTypesPacks/DayYears UsedDateSmoking Tobacco: Never AssessedChildcare AnswerDate JnijjyurGvsjaivquPrkyvwi56/12/2019EmploymentAnswerDate Recorded OfhpucjxueBrsphbg35/12/2019Purpose - LifeAnswerDate RecordedPurpose and direction in asuzFfejpoc71/11/2021CommentsNoSex and Gender Information ValueDate RecordedSex Assigned at BirthNot on fileLegal NvvUqieig06/06/2015 12:04 PM EDTGender IdentityNot on fileSexual OrientationNot on file Last Filed Vital Signs Vital SignReadingTime TakenCommentsBlood Pressure--Pulse--Temperature-- Respiratory Rate--Oxygen Saturation--Inhaled Oxygen Concentration--Mmgiil961.9 kg (260 lb)03/24/2019 8:02 AM MQSFavwyi666.6 cm (5' 6 )03/24/2019 8:02 AM EST Body Mass Index41.9703/24/2019 8:02 AM EST Plan of Treatment Health MaintenanceDue DateLast DoneCommentsDepression Mmgnowyqy60/30/1972Tobacco Aqtvwgaww69/30/1972Adult BMI Oushbizvg82/30/1978DTaP,Tdap and Td Vaccines (1 - Tdap)08/14/1978Zoster (Shingles) Vaccine (1 of 2)08/14/2009Fall Risk Screening 08/14/2024Influenza Ustizsa4411/16/2024RSV ( or age 60+ yrs) (1 - 1-dose 75+ series)08/14/2034 Medical Devices Not on file Insurance Care Teams Team MemberRelationshipSpecialtyStart DateEnd Date Brian Lorenzana MD PCP - Tpnpmiw30/3/18
--- OUTSIDE RECORDS SUMMARY | 2025-01-18 17:27 | XMS_ITS | Encounter Summary ---
Author Organization [facility] Address [address] [place] [address] Care Team Providers Care Tea Tree Farmer Name Role Phone Brian Lorenzana MD Primary Care Provider + [phone] Justino Galeas MD Unavailable Encounter Details DateTypeDepartmentCare Team (Latest Contact Info)Lyohvgonwrj54/22/2025Travel Social History Tobacco UseTypesPacks/DayYears UsedDateSmoking Tobacco: NeverSmokeless Tobacco: NeverAlcohol UseStandard Drinks/WeekCommentsNever0 (1 standard drink = 0.6 oz pure alcohol)Caffeine intake: 2-3 cups per dayPHQ-2AnswerDate RecordedPatient Health Questionnaire-2 Gxgal447Exercise Vital SignAnswerDate RecordedOn average, how many days [...] relatives?Twice a week01/05/2025How often do you attend samaritan or orthodox services?More than 4 times per year01/05/2025Do you belong to any clubs or organizations such as samaritan groups, unions, fraternal or athletic groups, or [...] heating?Not hard at all 01/05/2025[facility] [place] of Occupational Health - Occupational Stress QuestionnaireAnswerDate RecordedDo you feel stress - tense, restless, nervous, or anxious, or unable to sleep at night because yourmind is troubled all the time - these days?Only a sdooce9101/05/2025Hunger Vital SignAnswerDate Recorded Within the past 12 [...] RecordedSex Assigned at BirthNot on fileLegal Sex Lnbaeq5705/30/2022 6:42 PM EDTGender IdentityNot on fileSexual OrientationNot on fileOccupationIndustryJob Start DateJob End DateWork part timeNot on fileNot on fileNot on filedocumented as of this encounter Plan of Treatment DateTypeDepartmentCare Team (Latest Contact Info)Auasyfjmamv35/19/2025 10:00 AM ESTOffice Visit [facility] 112 [facility] 100 [place] [address] Brian Lorenzana MD 112 [facility] 100 [place] [address] (Fax) documented as of this encounter Visit Diagnoses Not on filedocumented in this encounter Care Teams Team MemberRelationshipSpecialtyStart DateEnd Date Brian Lorenzana MD 112 [facility] 100 [place] [address] (Fax) PCP - GeneralFamily Medicine08/20/22 Justion Galeas MD [address] [place] [phone] Referring VnsxzlywuXmowpdjvbi71/22/25documented as of this encounter
--- OUTSIDE RECORDS SUMMARY | 2025-01-18 17:27 | XMS_ITS | Encounter Summary ---
Author Organization [facility] Address [address] [place] [address] Care Team Providers Care Multiple Drum Sander Name Role Phone Brian Lorenzana MD Primary Care Provider [phone] Justino Galeas MD Unavailable Reason for Visit * ReasonOnset DateCommentsER Follow-up01/18/2025 Encounter Details DateTypeDepartmentCare Team (Latest Contact Info)Usgsgcwpvaf36/03/2025Telephone [facility] [address] [address] Cha, Sh[place], [place] ER Follow-up Social History Tobacco UseTypesPacks/DayYears UsedDateSmoking Tobacco: NeverSmokeless Tobacco: NeverAlcohol UseStandard Drinks/WeekCommentsNever0 (1 standard drink = 0.6 oz pure alcohol)Caffeine intake: 2-3 cups per dayPHQ-2AnswerDate RecordedPatient Health Questionnaire-2 Igqwv675Exercise Vital SignAnswerDate RecordedOn average, how many days [...] steady place to sleep or slept in [facility] (including now)?No09/23/2022 Housing Stability Vital SignAnswerDate RecordedIn the last 12 months, was there a time when you were not able to pay the mortgage or rent on time?No12/04/2023 Number of Times Moved in the Last YearNot on file12/04/2023t any time in the past 12 months, were you homeless or living in a retirement (including now)?No 12/04/2023Humiliation, Afraid, Rape, and Kick [...] relatives?Twice a week01/05/2025How often do you attend confucianist or pentecostal services?More than 4 times per year01/05/2025Do you belong to any clubs or organizations such as confucianist groups, unions, fraternal or athletic groups, or [...] day when you are drinking?Patient does not drink10/21/2025Q3: How often do you have six or more drinks on one occasion?Never01/05/2025Overall Financial Resource Strain (CARDIA)AnswerDate RecordedHow hard is it for you to pay for the very basics like food, housing, medical care, and heating?Not hard at all 01/05/2025[facility] [place] of Occupational Health - Occupational Stress QuestionnaireAnswerDate RecordedDo you feel stress - tense, restless, nervous, or anxious, or unable to sleep at night because yourmind is troubled all the time - these days?Only a miskhs1201/05/2025Hunger Vital SignAnswerDate Recorded Within the past 12 [...] were you homeless or living in a retirement (including now)? No01/05/2025B1300 Health LiteracyAnswerDate RecordedHow often do you need to have someone help you when you read instructions, pamphlets, or other written material from your doctor or pharmacy?Never01/05/2025CommentsNoSex and Gender InformationValueDate RecordedSex Assigned at BirthNot on fileLegal Sex Tdzdsh1305/30/2022 6:42 PM EDTGender IdentityNot on fileSexual OrientationNot on fileOccupationIndustryJob Start DateJob End DateWork part timeNot on fileNot on fileNot on filedocumented as of this encounter Miscellaneous Notes * Telephone Encounter - Shadia Eubanks MA - 01/18/2025 10:14 AM EST Images from the original note were not included. When talking to patient her BP this morning was over 200/110 and she has a decrease in her pain. Her BP in ER was 171/119 at discharge with a pain 9/10. I advised her that she needs to proceed immediately to the ER. She got upset about this and stated she has to take care of her dad's meds and thenshe is going to go home and retake it and if its still above 200 she will go but if its like it wasin the ER she doesn't think its necessary. I advised her that is still too high and that they mostly likely thought her pain was driving that but since she is in less pain now it is not the only factor. I again urged her to proceed to the ER that what she is reporting is in a dangerous stroke leveland she stated she would go after her dad's medications are set up. Flowsheet Row Telephone from 01/18/2025 in [place] [address] Family Medicine with Shadia Eubanks MA Hospital Information ED, Hospital or [facility] Facility Discharge? ED Patient has been contacted within 2 days of being seen in the ED Yes Diagnosis Compression fx Lumbar spine muscle strain Discharge Date 01/16/25 Discharged To: Home Setting Discharge Hospital [facility] Engagement Admission Date 01/16/25 Medications Discharge medications reviewed and reconciled from hospital? Yes Nursing Interventions -- [See Note.] Appointments Self Management Patient Teaching Wrap Up documented in this encounter Plan of Treatment DateTypeDepartmentCare Team (Latest Contact Info)Rpnzrpsaytk87/19/2025 10:00 AM ESTOffice Visit [place] [address] [facility] [address] [place] [address] Brian Lorenzana MD 112 [address] [place] [address] documented as of this encounter Visit Diagnoses Not on filedocumented in this encounter Care Teams Team MemberRelationshipSpecialtyStart DateEnd Date Brian Lorenzana MD 112 [facility] [address] [place] [address] PCP - GeneralFamily Medicine08/20/22 Justino Galeas MD [address] [place] [address] Referring KcansudxwIkumpucayw96/22/25documented as of this encounter
--- OUTSIDE RECORDS SUMMARY | 2025-01-18 17:27 | XMS_ITS | Clinical Summary ---
Author Organization [facility] Address [address] [place] [address] Care Team Providers Care Wood Carving Lathe Operator Name Role Phone Brian Piña MD Primary Care Provider + [phone] Justino Galeas MD Unavailable Allergies Active AllergyReactionsCriticalityNoted DateCommentsBee VenomShortness of breath ,Swelling,KqenvmbpMjru84/05/8483PsvyfbxZseqVto57/05/2023 Hydrocodone-QpnpkuoaypoqzNvduin25/05/2023 Other Reaction(s): unknown Metformin MbgOjj2108/20/2022 Other Reaction(s): intolerant diarrhea Oxycodone-LyrrtnacuavjiCdleuDysyrc16/05/2023ropoxypheneShortness of breath, YylbsfekZljx19/05/2023Sulfa MqwpgzskmtaCjhycExdhcx52/05/2023 Medications MedicationSigDispense QuantityRefillsLast FilledStart DateEnd DateStatus aspirin [...] Active Problems ProblemNoted DateDiagnosed DateChronic restrictive lung ortokba9501/11/2025 Pulmonary fibrosis, zuapkbyubfx70/27/2025Primary pulmonary hypertension 01/11/2025MI 45.0-49.9, adult01/06/2025Mild concentric left ventricular hypertrophy (LVH)06/21/2023 Overview (06/21/2023): Echo 2020 Adult situational stress iaekfqey20/05/2023enign essential hypertension 08/20/2022alcified granuloma of lung08/20/2022hronic mqwfhvr5208/20/2022KD (chronic kidney disease) stage 2, GFR 60-89 ml/min08/20/2022Equinus contracture of left ankle08/20/2022ESS (euthyroid sick syndrome)08/20/2022History of cnjbqtlurmsu59/05/2023Hypertensive brsgxkhcvlu79/05/2023Interstitial lung lwsambvub86/05/2023Insulin eecrljowgj23/05/0552Heayeirevikjxkiw47/05/2023Mixed wmuxwtvryfzawn58/05/2023Morbid obesity due to excess lsnuaxbb18/05/2023 Osteoarthrosis, shoulder ojllih3408/20/2022Other chronic pain08/20/2022Other headache /05/2023ost-acute sequelae of COVID-19 (PASC)08/20/2022VC (premature ventricular contraction)08/20/2022SVT (supraventricular tachycardia) 08/20/2022Tarsal coalition of right foot08/20/2022Venous (peripheral) zulzgoydudavo17/05/2023Vitamin D mhzwrowymj12/05/2023VT (ventricular tachycardia)08/20/20224325Vbeivhftdvcp52/17/2021djustment ysclwkab17/08/2020 Reactive rkmtmkwypqhv93/29/2016Chronic cluster ocypkeel73/15/2015 Resolved Problems ProblemNoted DateDiagnosed DateResolved DateChronic respiratory failure with dmdhidk62 Encounters DateTypeDepartmentCare LqdkGkzhgcscyih84/03/2025Telephone [facility] [address] [address] Shadia Eubanks MA ER Follow-up01/06/2025 10:00 AM EDTOffice Visit [facility] [address] [address] Brian Piña MD Welcome to Medicare preventive visit (Primary Dx); Advance directive in chart; Encounter for screening for other disorder; Screening for alcohol problem; Screening for osteoporosis; Menopause; Screening mammogram, encounter for; Primary pulmonary hypertension (HCC); Pulmonary fibrosis, unspecified (HCC); Chronic restrictive lung disease; Morbid obesity due to excess calories ([facility]-HCC); BMI 45.0-49.9, adult ([facility]-HCC)01/06/20259204Awaoei40/21/1126Dxtlaj54/29/[address] [facility] [address] [address] Shadia Eubanks MA Care Nhpfyeiswuxo48/01/2025Refill [facility] [address] [address] Brian Piña MD Mixed sfijagkthnotuc35/25/2025Telephone [facility] [address] [address] Shadia Eubanks MA from Last 3 Months Immunizations ImmunizationAdministration DatesNext DueHib / Hep B007/11/2009,06/09/2009 Influenza, injectable, quadrivalent, preservative free12/26/2015Polio, Cmsbbjcgvnq74/25/3333Fyjp50/25/2010 Family History Medical HistoryRelationNameCommentsHypertensionBrother 2Hal WCancerDaughter 2 BrittanyMiscarriages / StillbirthsDaughter 2BrittanyArthritisFatherHalAtrial fibrillationFatherHalHypertensionFatherHalPacemakerFatherHalTriple BypassFather HalBreast cancerMaternal GrandmotherFernCancerMaternal GrandmotherFernArthritis MotherCarolynCOPDMotherCarolynDiabetesMotherCarolynHeart failureMotherCarolyn HypertensionMotherCarolynUterine cancerMotherCarolynchronic back painMother CarolynCancerPaternal GrandmotherFernStrokeSiblingDepressionSister 2Deb HypertensionSister 2DebMental illnessSister 2DebStrokeSister 3BrendaVision loss Sister 3BrendaRelationNameStatusCommentsBrother 11 brotherBrother 2Hal WDaughter 2Gxkxc4 daughterDaughter 2BrittanyFatherHalAliveMaternal GrandmotherFernMother CarolynAlivePaternal GrandmotherFernDeceasedSiblingSister 12 sistersSister 2Deb Sister 1DxxndfMwpUzaya7 son Social History Tobacco UseTypesPacks/DayYears UsedDateSmoking Tobacco: NeverSmokeless Tobacco: Never Tobacco Cessation:Counseling Given: Not Answered Alcohol UseStandard Drinks/WeekCommentsNever0 (1 standard drink = 0.6 oz pure alcohol)Caffeine intake: 2-3 cups per dayPHQ-2AnswerDate RecordedPatient Health Questionnaire-2 Omnst900Exercise Vital SignAnswerDate RecordedOn average, how many days [...] steady place to sleep or slept in pompano beachelter (including now)?No09/23/2022 Housing Stability Vital SignAnswerDate RecordedIn [...] relatives?Twice a week01/05/2025How often do you attend tenriism or caodaism services?More than 4 times per year01/05/2025Do you belong to any clubs or organizations such as tenriism groups, unions, fraternal or athletic groups, or [...] medical care, and heating?Not hard at all 01/05/2025[facility] [place] - Occupational Stress QuestionnaireAnswerDate RecordedDo you feel stress - tense, restless, nervous, or anxious, or unable to sleep at night because yourmind is troubled all the time - these days?Only a bddzym5401/05/2025Hunger Vital SignAnswerDate Recorded Within the past 12 [...] RecordedSex Assigned at BirthNot on fileLegal Sex Wkfnnw4405/30/2022 6:42 PM EDTGender IdentityNot on fileSexual OrientationNot on fileOccupationIndustryJob Start DateJob End DateWork part timeNot on fileNot on fileNot on file Last Filed Vital Signs Vital SignReadingTime TakenCommentsBlood Fqkdnmsz991/8010 10:12 AM EDT Nekol55789/22/2025 10:51 AM EDTTemperature--Respiratory Rate--Oxygen Saturation 97%01/06/2025 10:12 AM EDTInhaled Oxygen Concentration--Uaayue510 kg (303 lb) 01/06/2025 10:12 AM KALCqlmft211.6 cm (5' 6 )01/06/2025 10:12 AM EDTBody Mass Index48.9101/06/2025 10:12 AM EDT Plan of Treatment DateTypeDepartmentCare Team (Latest Contact Info)Xmxhosrbtos24/19/2025 10:00 AM ESTOffice Visit [facility] [address] Medicine 112 [facility] [address] [place] [address] Brian Piña MD 112 [facility] [address] [place] [address] Health MaintenanceDue DateLast DoneCommentsCT Zzhnpymrlbth09/30/1960FIT-DNA 1960FIT1960 6096Ruxlpjkwrqkcw82/30/2258SAQP88Mammogram /03/2022, 06/14/2021, 03/24/2019, Additional history existsInfluenza Vaccine (#1)/12/2015Postponed from 11/16/2024 (Patient Refused) Medicare Annual Wellness (AWV)olonoscopy12/26/2027 12/25/2017Colorectal Cancer Eywgiiujd21/10/2028COVID-19 VaccineDiscontinued Pneumococcal Vaccine: 65+ YearsDiscontinued Procedures Procedure NamePriorityDate/TimeAssociated DiagnosisCommentsBI MAMMOGRAM SCREENING TOMOSYNTHESIS VWJTYGULSHcwyios53/01/2023 OCC BLD IMMUNO SCAZBAFeytemz77/24/2020 JPEEZMZQFFMPyikyim83/10/2018 12:00 PM EDT from Last 3 Months or Most Recently Relevant to Health Maintenance Results * Bilateral screening mammogram with tomosynthesis (07/16/2022)Anatomical Region LateralityModalityBreastBilateralMammographySpecimen (Source)Anatomical Location / LateralityCollection Method / VolumeCollection TimeReceived Time Narrative 07/16/2022 12:00 AM EDT PERFORMED AT [facility] LOCATION:[place] [address] Patient: ? NEARHOOD RATNA Perez ? Exam Date: ? 07/16/2022 : ? 1960 ?Gender:F ? Ordering : ? DR BRIAN PIÑA . ? Admission #: ? [id number] Family : ?Order #: ? [id number] ? CLICK HERE TO VIEW EXAM RADIOLOGY [...] cancer at age 49. LOCATION: ? [facility] BREAST COMPOSITION: ? Scattered areas fibroglandular density. [...] Note CONVERSION, GENERIC - 09/21/2022 PERFORMED AT [facility] LOCATION:[place] [address] Patient: SHANIA Perez Exam Date: 07/16/2022 : 1960 Gender:F Ordering : DR BRIAN PIÑA . Admission #: [id number] Family : Order #: [id number] CLICK HERE TO VIEW EXAM RADIOLOGY REPORT [...] breast cancer at age 49. LOCATION: [facility] BREAST COMPOSITION: Scattered areas fibroglandular density. FINDINGS: [...] on 07/16/2022 at 12:58 Authorizing ProviderResult TypeResult StatusEdsarabjit Piña MDIMJoseph BI PROCEDURES Final Result * OCC BLD IMMUNO SCREEN (10/09/2019)ComponentValueRef RangeTest MethodAnalysis TimePerformed AtPathologist SignatureOCCULT BLOODNEGATIVENEGATIVENOMS LEGACY EXTERNAL LABPERFORMING LAB:see noteNOMS LEGACY EXTERNAL LABComment:[facility] - [facility] Laboratory - Corporate Scheduler [address],[place] [address] ,Ext. [phone] specimen (Source)Anatomical Location / LateralityCollection Method / VolumeCollection TimeReceived Time10/09/2019 Narrative Authorizing ProviderResult TypeResult StatusBrian Piña MDECW LABSFinal ResultPerforming OrganizationAddressCity/State/ZIP CodePhone Number [facility] * Colonoscopy (12/25/2017 12:00 PM EDT)Anatomical RegionLateralityModality EndoscopySpecimen (Source)Anatomical Location / LateralityCollection Method / VolumeCollection TimeReceived Time12/25/2017 12:00 PM EDT Narrative 12/25/2017 12:00 PM EDT PERFORMED AT [facility] LOCATION:[id number] Abnormal Procedure Note CONVERSION, GENERIC - 08/01/2022 PERFORMED AT [facility] LOCATION:[id number] Abnormal Authorizing ProviderResult TypeResult StatusJecarrie Hunter NPENDOSCOPY PROCEDURE ORDERABLESFinal Result from Last 3 Months or Most Recently Relevant to Health Maintenance [place] [address] Advance Directives TypeDate RecordedPatient RepresentativeExplanationAdvance Directives and Living Will Healthcare Power Of AttorneyAdvance Directives and Living Will Living Will Care Teams Team MemberRelationshipSpecialtyStart DateEnd Date Brian Piña MD [address] [address] PCP - GeneralFamily Medicine08/20/22 Justino Galeas MD [address] [place] [id number] Referring TdfgfvzvsGprtlsbxhj24/22/25
--- OUTSIDE RECORDS SUMMARY | 2025-01-18 17:27 | XMS_ITS | Encounter Summary ---
Author Organization [facility] Address [address] [place] [address] Care Team Providers Care Blister Packaging Machine Operator Name Role Phone Brian Piña MD Primary Care Provider [phone] Justino Galeas MD Unavailable Encounter Details DateTypeDepartmentCare Team (Latest Contact Info)Fjfwkknubze81/04/2024Clinisync Result Encounter [facility] External Department Unsolicited Brian Piña MD [address] [place], [place] [id number] Social History Tobacco UseTypesPacks/DayYears UsedDateSmoking Tobacco: NeverSmokeless Tobacco: NeverAlcohol UseStandard Drinks/WeekCommentsNot Currently0 (1 standard drink = 0.6 oz pure alcohol)Caffeine intake: 2-3 cups per dayPHQ-2AnswerDate Recorded Patient Health Questionnaire-2 Ffloj845Exercise Vital SignAnswerDate RecordedOn average, how many days [...] were you homeless or living in a residential (including now)?No12/04/2023Humiliation, Afraid, Rape, and Kick questionnaireAnswerDate [...] relatives?Twice a week01/05/2025How often do you attend alevism or sabianist services?More than 4 times per year01/05/2025Do you belong to any clubs or organizations such as alevism groups, unions, fraternal or athletic groups, or school groups?Yes01/05/2025How often do you attend meetings of the clubs or organizations you belong to?1 to 4 times per year01/05/2025re you , , , , never , or living with a partner?Paavdan6601/05/2025UDIT-CAnswerDate RecordedQ1: How often do you have a [...] housing, medical care, and heating?Not hard at all01/05/2025Finshriners hospitals for [facility] Occupational Health - Occupational Stress QuestionnaireAnswerDate RecordedDo you feel stress - tense, restless, nervous, or anxious, or unable to sleep at night because yourmind is troubled all the time - these days?Only a yjxeyq6401/05/2025Hunger Vital Sign AnswerDate RecordedWithin the past 12 [...] were you homeless or living in a residential (including now)?No01/05/2025B1300 Health LiteracyAnswerDate RecordedHow often do you need to have someone help you when you read instructions, pamphlets, or other written material from your doctor or pharmacy?Never 01/05/2025CommentsNoSex and Gender InformationValueDate RecordedSex Assigned at BirthNot on fileLegal PlzOtxums33/15/2023 6:42 PM EDTGender Identity Not on fileSexual OrientationNot on fileOccupationIndustryJob Start DateJob End DateWork part timeNot on fileNot on fileNot on filedocumented as of this encounter Functional Status * AUDIT-C ScoreAnswerDate of UwxzpwxhkaFqdyhx292/21/2025 11:12 AM EDTMychart, Generic * Q1: How often do you have a drink containing alcohol?AnswerDate of Assessment GcazwkVlnnc04/21/2025 11:12 AM EDSIMONEychmercy, Generic * Q2: How many drinks containing alcohol do you have on a typical day when you are drinking?AnswerDate of AssessmentAuthorPatient does not drink01/05/2025 11:12 AM EDSIMONEychmercy, Generic * Q3: How often do you have six or more drinks on one occasion?AnswerDate of MocrcwuhizNspqzqEggvu65/21/2025 11:12 AM EDParis, Generic * Over the past 2 weeks, how often have you been bothered by any of the following problems?QuestionAnswerDate of AssessmentAuthorFeeling down, depressed, or hopelessNot at all05/26/2024 2:30 PM Arabella Shadia, REHANatient Health Questionnaire-2 Tmauc885 2:30 PM Arabella June, MA * Little interest or pleasure in doing thingsAnswerDate of AssessmentAuthorNot at all01/05/2025 11:15 AM Jhonathan Generic documented as of this encounter Plan of Treatment DateTypeDepartmentCare Team (Latest Contact Info)Yhzmorilvih81/19/2025 10:00 AM ESTOffice Visit [facility] [place] [address] Family Medicine 112 [facility] 100 [place] [address] Brian Piña MD 112 [facility] 100 [place] [address] documented as of this encounter Procedures Procedure NamePriorityDate/TimeAssociated DiagnosisCommentsCA HOLTER MONITOR 2-7 DAYS06/20/2023 2:50 PM EDT documented in this encounter Results * CA HOLTER MONITOR 2-7 DAYS (06/20/2023 2:50 PM EDT)Anatomical RegionLaterality ModalityOtherSpecimen (Source)Anatomical Location / LateralityCollection Method / VolumeCollection TimeReceived Time06/20/2023 2:50 PM EDT Narrative 06/21/2023 7:11 AM EDT The [facility] ?[address] ? [place] [address] ? Cardiology Report ? Signed ? Patient: NEARHOOD,RATNA L ?MR#: [id number] ?? : 1960 ?Acct:[id number] ?? Age/Sex: 62 / F ?ADM Date: 06/09/24 ?? Loc: CARD ? Attending Dr: BRIAN PIÑA ? Ordering Physician: BRIAN PIÑA ?? Date of Service: 06/10/23 ?? Procedure(s): CA ronny johnsonior 2-7 days ?? Accession Number(s): [id number] ? cc: BRIAN PIÑA ?[facility] ? Test Date: ?2023-06-20 ?? Pat Name: ? RATNA BROOKSDAYTON ? Department: ? Room: ? - ?? Gender: ? Female ? Campus Executive Director: ? : ?1960 ? Requested By: BRIAN PIÑA ?? Order Number: [id number] ?Reading MD: ?? VINICIO ??BALL ? Interpretive [...] 0711 ? DD/ 1450 ? TD/TT: ? Field Assistant: Procedure Note Radiology, Radiologist, - 06/21/2023 [place] [address] Cardiology Report Signed Patient: RATNA BAZAN LMR#: [id number] : 1960Acct:[id number] Age/Sex: 62 / FADM Date: 06/10/23 Loc: CARD Attending Dr: BRIAN PIÑA Ordering Physician: BRIAN PIÑA Date of Service: 06/10/23 Procedure(s): CA holter montior 2-7 days Accession Number(s): [id number] cc: BRIAN PIÑA [facility] Test Date: 2023-06-20 Pat Name: RATNA BAZAN Department: Room: - Gender: Female Campus Executive Director: : 1960 Requested By: BRIAN PIÑA Order Number: [id number] Reading MD: VINICIO BARNES Interpretive Statements Predominant [...] By:06/21/23 0711 06/21/23 0711 DD/ 1450 TD/TT: Field Assistant: Authorizing ProviderResult TypeResult StatusBrian Piña MDCLINISYNC IMAGING Final Result documented in this encounter Visit Diagnoses Not on filedocumented in this encounter Care Teams Team MemberRelationshipSpecialtyStart DateEnd Date Brian Piña MD 112 [facility] 100 [place] [address] PCP - GeneralFamily Medicine08/20/22 Justino Galeas MD [address] [place] [address] Referring AajlslghiOwtrwoooxj02/22/25documented as of this encounter
--- OUTSIDE RECORDS SUMMARY | 2025-01-18 17:27 | XMS_ITS | Clinical Summary ---
Author Organization [facility] Address [address] [place] [address] Care Team Providers Care Epidemiology Intern Name Role Phone Brian Lorenzana MD Primary Care Provider [phone] Allergies Active AllergyReactionsCriticalityNoted DateCommentsBee Venom Protein (Honey Bee)Other08/20/2022 Other Reaction(s): swelling, cant'breath UasmdmpGwuetli21/05/2023 Other Reaction(s): itch Hydrocodone-EspdqelnuvuhgTqlfr09/05/2023 Other Reaction(s): unknown XntoinandYghtnqdc51/05/2023 Other Reaction(s): intolerant diarrhea Oxycodone-StcvidgxqyknaLtojQzf90/05/2023 Other Reaction(s): rash, itch ZysuspzpalxbUexjp30/05/2023 Other Reaction(s): can't breath Sulfa (Sulfonamide Antibiotics)Other08/20/2022 [...] Overview (08/19/2023): Echo 2020 Adult situational stress nbnsxyyf00/05/2023alcified granuloma of lung08/20/2022 Chronic iqcpmwg9508/20/2022hronic respiratory failure with rrbmerm8308/20/2022 Equinus contracture of left ankle08/20/2022ESS (euthyroid sick syndrome) 08/20/2022History of bciejdvxewfn09/05/2023Hypertensive exifhnrchda41/05/2023 Insulin vgujijznow24/05/2023Interstitial lung fgoinknvc00/05/2023 Zpemqovmbhytsgam95/05/2023Morbid obesity due to excess /05/2023 Osteoarthrosis, shoulder gpjncx0808/20/2022Other chronic pain08/20/2022Other headache jxfdyjao43/05/2023ost-acute sequelae of COVID-19 (PASC)08/20/2022 Tarsal coalition of right foot08/20/2022VC (premature ventricular contraction) 08/20/2022Vitamin D brnjdwuhio05/05/1045Uyfuoqtmxhsy37/17/2021enign essential krubgohlvrhk80/02/2021KD (chronic kidney disease) stage 2, GFR 60-89 ml/min 05/17/2020Mixed aexqrxedmgvxji54/02/2021VT (supraventricular tachycardia) 05/17/2020Venous (peripheral) axfjniffjhgxn66/02/2021Ventricular tachycardia 05/17/2020djustment ymoxbxeh15/08/2020Reactive tjfjgydvjwlt48/29/2016Chronic cluster exiavfqu56/15/2015 Encounters DateTypeDepartmentCare GmkgExfcyvfielo77/22/2025[facility] [address] [place] [address] Wendy Arrington MA Benign hypertensive heart disease without congestive heart failure (Primary Dx); Palpitationsfrom Last 3 Months Family History Medical HistoryRelationNameCommentsAtrial fibrillationFatherHeart failureFather aortic valve stenosisFatherpacemakerFatherRelationNameStatusCommentsFather Social History Tobacco UseTypesPacks/DayYears UsedDateSmoking Tobacco: NeverSmokeless Tobacco: Never Tobacco Cessation:Counseling Given: Not Answered Alcohol UseStandard Drinks/WeekCommentsNever0 (1 standard drink = 0.6 oz pure alcohol)[place] Safety & EnvironmentAnswerDate RecordedFear of Current or Ex-Partner Not on file07/03/2023Emotionally AbusedNot on file07/03/2023hysically AbusedNot on file07/03/2023Sexually AbusedNot on file07/03/2023hysically or Sexually AbusedNot on file07/03/2023CommentsUnknownSex and Gender Information ValueDate RecordedSex Assigned at BirthNot on fileLegal ZdlQnlcic09/29/2022 10:46 PM EDTGender IdentityNot on fileSexual OrientationNot on file Last Filed Vital Signs Vital SignReadingTime TakenCommentsBlood Zlyvznba085/6403 9:39 AM EST Hasyt9319/04/2025 9:39 AM ESTTemperature--Respiratory Rate--Oxygen Hraapummrs94% 05/19/2024 9:39 AM ESTInhaled Oxygen Concentration--Weight--Ylqwdu243.6 cm (5' 6 )05/19/2024 9:39 AM ESTBody Mass Index-- Plan of Treatment Health MaintenanceDue DateLast DoneCommentsCT Jgiucfprphwv03/30/1960FIT-DNA 1960FIT1960FOBT1959Medicare Initial Physical (IPPE)1960 Zozqvrovppbqv45/30/1960Depression Oppkppktc82/30/1972Pneumococcal Vaccine: 50+ Years (1 of 2 - PCV)08/14/1978Pap Smear08/14/1980Cervical Cancer Screening 08/14/1989HPV/Uuxhwk9108/14/1989IPV Vaccines (2 of 3 - Adult catch-up series) Zoster Vaccines (1 of 2)08/14/2009dult Rzfjwwz0006/10/2019 06/09/20099897Bsldmgxwo58/01/202505/03/2022, 03/24/2019Fall Risk Ddxnfcnlf05/30/2025 COVID-19 Vaccine (1 - season)2024Influenza Vaccine (#1)2024 12/26/20150449Zncsnbxujsh14Colorectal Cancer Xeusxiqip84/10/2028 HIB VaccinesAged Out07/11/2009, 06/09/2009No longer eligible based [...] Team MemberRelationshipSpecialtyStart DateEnd Date Brian Lorenzana MD [phone] (work) [facility] - Kojefwo6
--- OUTSIDE RECORDS SUMMARY | 2025-01-18 17:28 | XMS_ITS | Encounter Summary ---
Author Organization [facility] Address [address] [place] [address] Care Team Providers Care Mobile Phlebotomist Name Role Phone Brian Piña MD Primary Care Provider + [phone] Justino Galeas MD Unavailable Encounter Details DateTypeDepartmentCare Team (Latest Contact Info)Vtbgvnoxmvl42/18/2024linisync Result Encounter [facility] External Department Unsolicited Provider, Generic External Data Social History Tobacco UseTypesPacks/DayYears UsedDateSmoking Tobacco: NeverSmokeless Tobacco: NeverAlcohol UseStandard Drinks/WeekCommentsNever0 (1 standard drink = 0.6 oz pure alcohol)Caffeine intake: 2-3 cups per dayPHQ-2AnswerDate RecordedPatient Health Questionnaire-2 [id number] Vital SignAnswerDate RecordedOn average, how many days [...] homeless or living in a residential (including now)?No 12/04/2023Humiliation, Afraid, Rape, and Kick [...] relatives?Twice a week01/05/2025How often do you attend yazidi or christian services?More than 4 times per year01/05/2025Do you belong to any clubs or organizations such as yazidi groups, unions, fraternal or athletic groups, or [...] heating?Not hard at all 01/05/2025[facility] [place] [facility] Occup[facility] - Occupational Stress QuestionnaireAnswerDate RecordedDo you feel stress - tense, restless, nervous, or anxious, or unable to sleep at night because yourmind is troubled all the time - these days?Only a wudsjk6301/05/2025Hunger Vital SignAnswerDate Recorded Within the past 12 [...] homeless or living in a residential (including now)? No01/05/2025B1300 Health LiteracyAnswerDate RecordedHow often do you need to have someone help you when you read instructions, pamphlets, or other written material from your doctor or pharmacy?Never01/05/2025CommentsNoSex and Gender InformationValueDate RecordedSex Assigned at BirthNot on fileLegal Sex Ldtdqd1305/30/2022 6:42 PM EDTGender IdentityNot on fileSexual OrientationNot on fileOccupationIndustryJob Start DateJob End DateWork part timeNot on fileNot on fileNot on filedocumented as of this encounter Functional Status * AUDIT-C ScoreAnswerDate of XurqzfcbxcXvxvke637/21/2025 11:12 AM Jakub Ring * Q1: How often do you have a drink containing alcohol?AnswerDate of Assessment FvkzawObnrw06/21/2025 11:12 AM Jhonathan Generic * Q2: How many drinks containing alcohol do you have on a typical day when you are drinking?AnswerDate of AssessmentAuthorPatient does not drink01/05/2025 11:12 AM Jhonathan Generic * Q3: How often do you have six or more drinks on one occasion?AnswerDate of ZhfwnfhigfJuiafzXwcwm03/21/2025 11:12 AM Jhonathan Generic * Over the past 2 weeks, how often have you been bothered by any of the following problems?QuestionAnswerDate of AssessmentAuthorFeeling down, depressed, or hopelessNot at all05/26/2024 2:30 [address] [facility] [address] Questionnaire-2 Yiggj679 2:30 PM Arabella June, [place] * Little interest or pleasure in doing thingsAnswerDate of AssessmentAuthorNot at all01/05/2025 11:15 AM Jakub Ring documented as of this encounter Plan of Treatment DateTypeDepartmentCare Team (Latest Contact Info)Mdgsykkcxip79/19/2025 10:00 AM ESTOffice Visit [facility] [address] 112 [facility] [address] [place] [address] Brian Piña MD 112 [facility] 100 [place] [address] documented as of this encounter Procedures Procedure NamePriorityDate/TimeAssociated DiagnosisCommentsXR FOOT RT MIN 3V 01/03/2024 7:16 AM EDT documented in this encounter Results * XR FOOT RT MIN 3V (01/03/2024 7:16 AM EDT)Anatomical RegionLateralityModality OtherSpecimen (Source)Anatomical Location / LateralityCollection Method / VolumeCollection TimeReceived Time01/03/2024 7:16 AM EDT Narrative 01/03/2024 7:18 AM EDT [facility] ?[address] ? [place] [address] ?XRay Report ? Signed ? Patient: NEARHOOD,RATNA L ?MR#: [id number] ?? : 1960 ?Acct:[id number] ?? Age/Sex: 63 / F ?ADM Date: 10/16/24 ?? Loc: RAD ? Attending Dr: Forrest Lee D.P.M. ? Ordering Physician: Forrest Lee D.P.M. ?? Date of Service: 01/01/24 ?? Procedure(s): XR foot RT min 3V ?? Accession Number(s): [id number] ? cc: BRIAN PIÑA ; Forrest Lee D.P.M. ? [facility] ? [address] ? [place] [address] ? Patient Name: ?? RATNA Mcdonald NEARHOOD ? MRN: [facility]:[id number] ? date: 1960 ?Sex: F ?? Assigned Patient Location: RAD ?? Current Patient Location: ? Accession/Order Number: [id number] ?? Exam Date: 01/01/2024 ??10:21 ?Report Date: [...] ?01/03/24717 ? DD/ 5 ? TD/TT: ? Salesperson [employer] Accessories: Procedure Note Radiology, Radiologist, MD - 01/03/2024 [place] [address] XRay Report Signed Patient: RATNA BAZAN LMR#: [id number] : 1960Acct:[id number] Age/Sex: 63 / FADM Date: 01/01/24 Loc: RAD Attending Dr: Forrest Lee D.P.M. Ordering Physician: Forrest Lee D.P.M. Date of Service: 01/01/24 Procedure(s): XR foot RT min 3V Accession Number(s): [id number] cc: BRIAN PIÑA ; Forrest Lee D.P.M. [address] [address] Patient Name: RATNA BAZAN MRN: [id number] date: 1960 Sex: F Assigned Patient Location: RAD Current Patient Location: Accession/Order Number: [id number] Exam Date: 01/01/2024 10:21 Report Date: 01/03/2024 [...] Gallagher M.D. Signed By:01/03/24717 DD/ 5 TD/TT: Salesperson [employer]: Authorizing ProviderResult TypeResult StatusGeneric External Data Provider CLINISYNC IMAGINGFinal Result documented in this encounter Visit Diagnoses Not on filedocumented in this encounter Care Teams Team MemberRelationshipSpecialtyStart DateEnd Date Brian Piña MD [address] [place] [address] PCP - GeneralFamily Medicine08/20/22 Justino Galeas MD [address] [place] [phone] Referring RmmyqrpswZfjpiwfuol41/22/25documented as of this encounter
--- OUTSIDE RECORDS SUMMARY | 2025-01-18 17:28 | XMS_ITS | Encounter Summary ---
Author Organization [facility] Address [address] [place] [address] Care Team Providers Care Bituminous Paving Machine Operator Name Role Phone Brian Piña MD Primary Care Provider + [phone] Justino Galeas MD Unavailable Encounter Details DateTypeDepartmentCare Team (Latest Contact Info)Fumggefsfwg31/08/2024linisync Result Encounter [facility] External Department Unsolicited Provider, Generic External Data Social History Tobacco UseTypesPacks/DayYears UsedDateSmoking Tobacco: NeverSmokeless Tobacco: NeverAlcohol UseStandard Drinks/WeekCommentsNever0 (1 standard drink = 0.6 oz pure alcohol)Caffeine intake: 2-3 cups per dayPHQ-2AnswerDate RecordedPatient Health Questionnaire-2 Pwomt783Exercise Vital SignAnswerDate RecordedOn average, how many days [...] were you homeless or living in a correction (including now)?No 12/04/2023Humiliation, Afraid, Rape, and Kick [...] relatives?Twice a week01/05/2025How often do you attend sabianism or tenriism services?More than 4 times per year01/05/2025Do you belong to any clubs or organizations such as sabianism groups, unions, fraternal or athletic groups, or [...] hard at all 01/05/2025[facility] [place] of Occupational Health - Occupational Stress QuestionnaireAnswerDate RecordedDo you feel stress - tense, restless, nervous, or anxious, or unable to sleep at night because yourmind is troubled all the time - these days?Only a aldqdf0901/05/2025Hunger Vital SignAnswerDate Recorded Within the past 12 [...] were you homeless or living in a correction (including now)? No01/05/2025B1300 Health LiteracyAnswerDate RecordedHow often do you need to have someone help you when you read instructions, pamphlets, or other written material from your doctor or pharmacy?Never01/05/2025CommentsNoSex and Gender InformationValueDate RecordedSex Assigned at BirthNot on fileLegal Sex Wkqzoo1705/30/2022 6:42 PM EDTGender IdentityNot on fileSexual OrientationNot on fileOccupationIndustryJob Start DateJob End DateWork part timeNot on fileNot on fileNot on filedocumented as of this encounter Functional Status * AUDIT-C ScoreAnswerDate of SigfshthahPmocfn784/21/2025 11:12 AM Jakub Ring * Q1: How often do you have a drink containing alcohol?AnswerDate of Assessment ZcfyekQoeyv39/21/2025 11:12 AM Jhonathan Generic * Q2: How many drinks containing alcohol do you have on a typical day when you are drinking?AnswerDate of AssessmentAuthorPatient does not drink01/05/2025 11:12 AM Jhonathan Generic * Q3: How often do you have six or more drinks on one occasion?AnswerDate of EgudwnazzgFlcgnfVnuyq41/21/2025 11:12 AM Jakub Ring * Over the past 2 weeks, how often have you been bothered by any of the following problems?QuestionAnswerDate of AssessmentAuthorFeeling down, depressed, or hopelessNot at all05/26/2024 2:30 PM Arabella June [facility]ENTERatient Health Questionnaire-2 Jdqls654 2:30 PM Arabella June, [place] * Little interest or pleasure in doing thingsAnswerDate of AssessmentAuthorNot at all01/05/2025 11:15 AM Jakub Ring documented as of this encounter Plan of Treatment DateTypeDepartmentCare Team (Latest Contact Info)Ykhflecesdj25/19/2025 10:00 AM ESTOffice Visit [facility] [address] 112 [facility] 100 [place] [address] Brian Piña MD 112 [facility] 100 [place] [address] documented as of this encounter Procedures Procedure NamePriorityDate/TimeAssociated DiagnosisCommentsCA ECHO DOPPLER WDMRIVAH79/08/2024 3:42 PM EDT documented in this encounter Results * CA ECHO DOPPLER COMPLETE (09/23/2023 3:42 PM EDT)Anatomical RegionLaterality ModalityOtherSpecimen (Source)Anatomical Location / LateralityCollection Method / VolumeCollection TimeReceived Time09/23/2023 3:42 PM EDT Narrative 09/23/2023 3:43 PM EDT [facility] ?[address] ? [place] [address] ? Cardiology Report ? Signed ? Patient: NEARHOOD,RATNA L ?MR#: [id number] ?? : 1960 ?Acct:[id number] ?? Age/Sex: 63 / F ?ADM Date: 07/08/24 ?? Loc: CARD ? Attending Dr: Shy Sandhu M.D. ? Ordering Physician: Shy Sandhu M.D. ?? Date of Service: 09/23/23 ?? Procedure(s): CA echo doppler complete ?? Accession Number(s): [id number] ? cc: Shy Sandhu M.D.; BRIAN PIÑA ? Patient Name: ? RATNA NEARHOOD ? MR#: [id number] ? : 1960 ? Exam Date: 09/23/2023 [...] 1543 ? DD/ 1542 ? TD/TT: ? Mangle Feeder: Procedure Note Radiology, Radiologist, MD - 09/23/[address] [address] Cardiology Report Signed Patient: RATNA BAZAN LMR#: [id number] : 1960Acct:[id number] Age/Sex: 63 / FADM Date: 09/23/23 Loc: CARD Attending Dr: Shy Sandhu M.D. Ordering Physician: Shy Sandhu M.D. Date of Service: 09/23/23 Procedure(s): CA echo doppler complete Accession Number(s): [id number] cc: Shy Sandhu M.D.; BRIAN IPÑA Patient Name: RATNA BAZAN MR#: [id number] : 1960 Exam Date: 09/23/2023 Ordering Doctor: [...] M.D. Signed By:09/23/23 1543 DD/ 1542 TD/TT: Mangle Feeder: Authorizing ProviderResult TypeResult StatusGeneric External Data Provider [facility] IMAGINGFinal Result documented in this encounter Visit Diagnoses Not on filedocumented in this encounter Care Teams Team MemberRelationshipSpecialtyStart DateEnd Date Brian Piña MD 112 [facility] 100 [place] [address] PCP - GeneralFamily Medicine08/20/22 Justino Galeas MD [address] [place] [phone] Referring IhmblqqwiKymvpvumsu06/22/25documented as of this encounter
--- OUTSIDE RECORDS SUMMARY | 2025-01-18 17:28 | XMS_ITS | Patient Health Record ---
Author Organization [facility] Address [address] [place] [address] Care Team Providers Care Learning Engineer Name Role Phone Harriett WATTS, Brian Primary Care Provider Unavail able Forrest Lee [facility] [phone] Allergies Allergen (clinical drug ingredient) Drug/Non Drug Allergy documented on EMR Reaction Allergy Type Onset Date Status acetaminophen / oxycodone Percocet Unknown Drug Aller gy ActiveSubstance with sulfonamide structure and antibacterial mechanism of action (substance)Sulfa AntibioticsUnknownDrug AllergyActive Results Component Value Reference Range Notes MR ankle RT wo con (Not yet reviewed by provider) Interpretation: Performing Lab: Notes/Report: Source Facility: [place] [address] Magnetic Resonance Report Signed Patient: RATNA BAZAN MR#: [id number] : 1960 Acct:[id number] Age/Sex: 63 / F ADM Date: 03/16/24 Loc: MRI Attending Dr: Forrest Lee D.P.M. Ordering Physician: Forrest Lee D.P.M. Date of Service: 03/16/24 Procedure(s): MR ankle RT wo con Accession Number(s): [id number] cc: BRIAN PIÑA ; Forrest Lee D.P.M. [place] [address] Patient Name: RATNA BAZAN MRN: [id number] date: 1960 Sex: F Assigned Patient Location: MRI Current Patient Location: Accession/Order Number: [id number] Exam Date: 03/16/2024 09:50 Report Date: 03/19/2024 [...] 10:43 Dictated By: Tom Baron M.D. Signed By: 03/19/24 1045 DD/ 1043 TD/TT: Group Leader [employer] Testing: Reason For Referral No Information Medications Medication SIG (Take, Route, Frequency, Duration) Notes Start Date End Date Status Liothyronine Sodium 5 MCG 1 tablet on an empty s tomach Orally Once a day ActiveLosartan Potassium 100 MG1 tablet Orally Once a dayActiveAspirin 81 MG1 tablet Orally Once a dayActiveMetoprolol Tartrate 100 MG1 tablet with food Orally Twice a dayActiveamLODIPine Besylate 10 MG1 tablet Orally Once a day ActiveSpironolactone 25 MG1 tablet OrallyActivedexAMETHasone Sodium Phosphate 4 MG/ML1.5ml-2.5ml topically up to 3 times weekly in physical therapy; Duration: 30 days01/01/2024ctiveFlecainide Acetate 100 MG0.5 tablet Orally every 12 hrs ActiveAtorvastatin Calcium 40 MG1 tablet Orally Once a dayActive Social History Tobacco Use: Social History Observation Description Date Details (start date - stop date) Never Smoker NA - NA Tobacco Control (Standard) Question Answer Notes Tobacco use: Nonsmoker Problems Problem Type SNOMED Code ICD Code Onset Dates Problem Status W/U Status Risk Notes Problem Contracture of joint of right ankle (disorder) (890653842935926) Contracture, right ankle (M24.571) ActiveconfirmedProblemPlantar fascial fibromatosis (10509802)Plantar fascial fibromatosis (M72.2)ActiveconfirmedProblemPain in right foot (155300801951246) Right foot pain (M79.671)Activeconfirmed Vital Signs Heart Rate 70 /min 03/25/2024 Amylcafjgeb44.4 degrees Kqckerlcbw01/08/2635Zfeczcwu45 %03/25/20241637Dattqn25 in 03/25/2024 Encounters Encounter Location Date Provider Diagnosis [facility] ([facility]) [address] [place] [address] [place] [address] 02/25/2024 Forrest Lee Plantar fascial fibromatosis M72.2 ; Contracture, right ankle M24.571 and Achilles tendinitis, right leg M76.61 [facility] ([facility]) [address] [place], [place] [address] [address] 03/25/2024 Forrest Lee Plantar fascial fibromatosis M72.2 ; Contracture, right ankle M24.571 and Achilles tendinitis, right leg M76.61 Assessments Encounter Date Diagnosis (ICD Code) Assessment Notes Treatment Notes Treatment Clinical Notes Section Notes 02/25/2024 Plantar fascial fibromatosis (IC D-10 - M72.2) Patient seen and evaluated. Patient education provided and all questions answered to her satisfaction. Patient has had persistent right heel pain for nearly 1 year and has attempted formal physical therapy with iontophoresis, stretching, massage and other modalities for 6 weeks without help. Patient is also failed to respond to ibuprofen, shoe and activity modification and home stretching program.I recommended MRI given that her response to the above treatments is not typical and that she now has new onset Achilles tendinitis. She will follow-up after the study is laoqwdxu28/10/2024Contracture, right ankle (ICD-10 - M24.571)03/25/2024Plantar fascial fibromatosis (ICD-10 - M72.2) Patient was seen and evaluated. Patient's condition was provided and all questions were answered tosatisfaction. I reviewed x-rays, MRI and physical exam findings. Patient has had symptoms for nearly a year and has failed extensive nonsurgical treatment including formal physical therapy.Patient would like to undergo surgery and I recommended: Right endoscopic plantar fasciotomy and Marquise gastrocnemius recession, possible Achilles tenolysis I reviewed the possible complications which include but not limited to infection, wound healing issue, numbness and tingling, bleeding, blood clot, pain, need for additional surgery. Postoperative course was reviewed and the patient will likely be: [facility] as [facility] weeks Patient will be: outpatient postoperatively Proposed anesthesia:General: Proposed implants: None 5Contracture, right ankle (ICD-10 - M24.571)5Achilles tendinitis, right leg (ICD-10 - M76.61)4Achilles tendinitis, right leg (ICD-10 - M76.61) Plan Of Treatment Pending Test Test Name Order Date MRI Ankle RT w/o contrast (Hind Foot) XR foot RT min 3V 01/03/2024 MR ankle RT wo con 03/19/2024 Insurance Providers Payer Name Payer Address Payer Phone Subscriber Number Group Number Insured Name Patient Relationship to Insured Coverage Start Date Coverage End Date [employer] [address] [address] [place] [address] [id number] Ratna Bazan Self - patient is the insured Medical (General) History Medical History History ICD Code high blood pressure high cholesterolSurgical History Surgery Date(Month/Year) 3 shoulder surgeries 2 knee surgeries2 c-sectionstotal hysteretomy
--- NOTE | 2025-01-18 17:35 | ECG_ITS ---
The [facility] Test Date: 2025-01-18 Pat Name: AMBER JAUREGUI Department: Room: - Gender: Female Portfolio Consultant: : 1960 Requested By: [id number] Order Number: [id number] Reading MD: ELIO SELBY M.D. Measurements Intervals [place] Rate: 59 P: 46 WV: 164 QRS: 39 QRSD: 86 T: 23 QT: 430 QTc: 429 Interpretive Statements 1100 Sinus rhythm 8102 Low QRS voltage in chest leads 9120 atypical ECG Compared to ECG 08/31/2020 10:54:03 Low QRS voltage now present Sinus tachycardia no longer present Ventricular premature complex(es) no longer present Electronically Signed On 01-18-2025 18:49:54 EST by ELIO SELBY M.D.
[2025-01-18 17:51] VITALS: BP 152/90
[2025-01-18 17:56] VITALS: PULSE 59
[2025-01-18 18:10] LABS: Hematocrit 40.3 % (36.0-48.0); Hemoglobin 13.6 g/dL (12.0-16.0); Immature Granulocytes Abs Auto 0.05 10^3/uL (0.00-0.03); Immature Granulocytes Pct Auto 0.5 % (0.0-0.5); Lymphocytes Absolute Auto 0.7 10^3/uL (1.2-3.8); Mean Corpuscular HGB Conc 33.7 g/dL (29.9-35.2); Mean Corpuscular Hemoglobin 33.7 pg (26.7-34.0); Mean Corpuscular Volume 99.8 fL (81.0-99.0); Platelet Count 249 10^3/uL (150-450); Red Blood Count 4.04 10^6/uL (4.20-5.40); White Blood Count 9.3 10^3/uL (4.0-11.0)
[2025-01-18 18:26] LABS: Alanine Aminotransferase 26 U/L (14-59); Albumin Globulin Ratio 0.9; Albumin Level 3.4 g/dL (3.4-5.0); Alkaline Phosphatase 97 U/L (46-116); Anion Gap 13.1; Aspartate Amino Transferase 19 U/L (15-37); Blood Urea Nitrogen 21.0 mg/dL (7.0-18.0); Calcium 8.7 mg/dL (8.5-10.1); Carbon Dioxide 24.5 mmol/L (21.0-32.0); Chloride 107 mmol/L (98-107); Estimated GFR (African America >60 (>=60 mL/min/1.73m^2); Estimated GFR (Non-African Ame >60 (>=60 mL/min/1.73m^2); Globulin 3.6 g/dL; Glucose 192 mg/dL (74-106); Potassium 4.6 mmol/L (3.5-5.1); Sodium 140 mmol/L (136-145); Total Protein 7.0 g/dL (6.4-8.2)
--- NOTE | 2025-01-18 18:32 | ED.GENADUL1 ---
HPI HPI - General Adult General Chief complaint: Recheck/Abnormal Lab/Rx Stated complaint: HIGH BLOOD PRESSURE/ SENT BY PCP Time Seen by Provider: 01/18/25 17:09 Source: patient Mode of arrival: walk-in Limitations: no limitations History of Present Illness HPI narrative: The patient is a 64-year-old female who was just evaluated 2 days ago here in the ER for back pain, apparently she was called by her primary care office told her to come back to the ER to be evaluated after he noted that her blood pressure was elevated in the ER, patient also has been having elevated blood pressure reading of 200 systolic and above at home with her machine Patient denying any chest pain nausea vomiting or any other concerns she also denies any headache although when asked and she seems upset to be in the ER she said she is feeling fluttery and not that her heart is beating fast or any chest pain The patient is obviously upset because she is in the ER and she did not want to be here. The patient was taking blood pressure medication including amlodipine and losartan but apparently her blood pressure was very controlled well and apparently they stopped the amlodipine couple months ago she was just evaluated by her primary care almost 2 weeks ago where her blood pressure was 130 systolic with the medication that she is on The patient was evaluated in the ER and treated 2 days ago for back pain discharged home with prednisone in addition to muscle relaxant Related Data Home Medications ?Medication ?Instructions ?Recorded ?Confirmed aspirin 81 mg tablet,delayed 81 mg PO DAILY 01/16/25 01/16/25 release (Adult Aspirin Regimen) atorvastatin 40 mg tablet 40 mg PO DAILY 01/16/25 01/16/25 flecainide 100 mg tablet 100 mg PO Q12H 01/16/25 01/16/25 metoprolol tartrate 100 mg tablet 100 mg PO Q12H 01/16/25 01/16/25 Previous Rx's ?Medication ?Instructions ?Recorded methocarbamol 750 mg tablet 750 mg PO Q8H #20 tabs 01/17/25 prednisone 10 mg tablet See Rx Instructions .Route 01/17/25 .COMPLEX #30 tabs tramadol 50 mg tablet 50 mg PO Q6H PRN pain 5 days #20 01/17/25 tabs Allergies Allergy/AdvReac Type Severity Reaction Status Date / Time acetaminophen (From Vicodin) Allergy Severe Wheezing Verified 01/16/25 23:31 hydrocodone (From Vicodin) Allergy Severe Wheezing Verified 01/16/25 23:31 oxycodone (From Percocet) Allergy Severe Wheezing Verified 01/16/25 23:31 Sulfa (Sulfonamide Allergy Severe Wheezing Verified 01/16/25 23:31 Antibiotics) Opioid HPI Opioid Management Most Recent Opioid Data: Last Pain Scale 9 01/16/25, 23:31 Last MAR Pain Assessment 01/16/25, 23:42 Review of Systems ROS Status of ROS 10 or more systems reviewed and unremarkable except as noted in history and below PFSH PFSH Social History Little interest or pleasure in doing things: not at all Feeling down, depressed, or hopeless: not at all Exam Narrative Exam Narrative: Nurses notes and vital signs reviewed and patient is not hypoxic. General: Well-appearing and in no apparent distress. Skin: Warm, dry, no pallor noted. No rash. Head: Normocephalic, atraumatic. Neck: Supple, non-tender. Cardiovascular: Regular Rate and Rhythm without murmur, gallop or rub. Respiratory: No accessory muscle use or respiratory distress. Lungs are clear to auscultation, no wheezing, rales or rhonchi Chest Wall: no tenderness Back: No midline thoracic or lumbar vertebral tenderness. No CVA tenderness Musculoskeletal: normal ROM, no calf or popliteal tenderness, no lower extremity edema/swelling GI: Abdomen is soft, non-distended. Normal bowel sounds. No masses appreciated. No tenderness to palpation. No rebound, guarding, or rigidity noted. Neurological: A&O x4. No cranial nerve dysfunction observed. No truncal ataxia. Moves all extremities. Sensation intact. Psychiatric: Cooperative and interactive. Normal mood and affect. Constitutional Vital Signs, click to edit/add: Last Vital Signs Temp 98 F 01/18/25 17:04 Pulse 78 01/18/25 17:04 Resp 18 01/18/25 17:04 BP 162/90 H 01/18/25 18:49 Pulse Ox 98 01/18/25 17:04 O2 Del Method Room Air 01/18/25 17:04 Course Vital Signs Vital signs: Vital Signs Temperature 98 F 01/18/25 17:04 Pulse Rate 78 01/18/25 17:04 Respiratory Rate 18 01/18/25 17:04 Blood Pressure 183/104 H 01/18/25 17:04 Pulse Oximetry 98 01/18/25 17:04 Oxygen Delivery Method Room Air 01/18/25 17:04 Temperature 98 F 01/18/25 17:04 Pulse Rate 78 01/18/25 17:04 Respiratory Rate 18 01/18/25 17:04 Blood Pressure 162/90 H 01/18/25 18:49 Pulse Oximetry 98 01/18/25 17:04 Oxygen Delivery Method Room Air 01/18/25 17:04 Medical Decision Making MDM Narrative Medical decision making narrative: The patient EKG in the ER showing sinus rhythm with a heart rate of [address] elevation or depression The patient presented to us only because her primary care doctor told her that blood pressure is elevated in the ER in addition to the fact that she had a high blood pressure reading by the machine she had, but she did had the machine that measure the blood pressure at the wrist , which is usually inaccurate Due to the patient body habitus and BMI that is 51 had to measure her blood pressure with a manual machine Blood pressure with a manual machine was 150 systolic and 160 systolic here in the ER and 2 readings CBC and chemistry shows no acute pathology that could confirm the elevated blood pressure to be a continuous problem The patient although she was upset that she was in the ER I did explain to her that right now no need to change any medication she just need to follow-up with her primary care within few days she was just evaluated and started on prednisone and that might affect her blood pressure as well but no need for changes that is permanent or her medication at the moment Patient need to start using regular arm cuff blood pressure machine I did call the primary care and discussed the case with him regarding the patient blood pressure readings and that the patient needs a new machine and further evaluation, she will call his office tomorrow morning to be evaluated again The patient was informed of that The patient to follow-up with the primary care within 2 to 3 days and to come back to the ER in case of any worsening of the current symptoms or any new symptoms or concerns Lab Data Labs: Lab Results 01/18/25 Range/Units 18:05 WBC 9.3 (4.0-11.0) 10^3/uL RBC 4.04 L (4.20-5.40) 10^6/uL Hgb 13.6 (12.0-16.0) g/dL Hct 40.3 (36.0-48.0) % MCV 99.8 H (81.0-99.0) fL MCH 33.7 (26.7-34.0) pg MCHC 33.7 (29.9-35.2) g/dL RDW 13.8 (11.0-15.0) % Plt Count 249 (150-450) 10^3/uL MPV 12.1 (9.5-13.5) fL Neut % (Auto) 90.6 H (43.0-75.0) % Lymph % (Auto) 7.7 L (20.5-60.0) % Angelina % (Auto) 1.1 L (1.7-12.0) % Eos % (Auto) 0.0 L (0.9-7.0) % Baso % (Auto) 0.1 L (0.2-2.0) % Neut # (Auto) 8.4 H (1.4-6.5) 10^3/uL Lymph # (Auto) 0.7 L (1.2-3.8) 10^3/uL Angelina # (Auto) 0.1 L (0.3-0.8) 10^3/uL Eos # (Auto) 0.0 (0.0-0.7) 10^3/uL Baso # (Auto) 0.0 (0.0-0.1) 10^3/uL Abs Immat Gran (auto) 0.05 H (0.00-0.03) 10^3/uL Imm/Tot Granulo (auto) 0.5 (0.0-0.5) % Sodium 140 (136-145) mmol/L Potassium 4.6 (3.5-5.1) mmol/L Chloride 107 (98-107) mmol/L Carbon Dioxide 24.5 (21.0-32.0) mmol/L Anion Gap 13.1 BUN 21.0 H (7.0-18.0) mg/dL Creatinine 0.90 (0.55-1.02) mg/dL Est GFR ( Amer) >60 (>=60 mL/min/1.73m^2) Est GFR (Non-Af Amer) >60 (>=60 mL/min/1.73m^2) BUN/Creatinine Ratio 23.3 Glucose 192 H (74-106) mg/dL Calcium 8.7 (8.5-10.1) mg/dL Total Bilirubin 0.5 (0.2-1.0) mg/dL AST 19 (15-37) U/L ALT 26 (14-59) U/L Alkaline Phosphatase 97 (46-116) U/L Troponin I High Sens 4.4 (4.0-51.3) pg/mL Total Protein 7.0 (6.4-8.2) g/dL Albumin 3.4 (3.4-5.0) g/dL Globulin 3.6 g/dL Albumin/Globulin Ratio 0.9 Discharge Plan Discharge Chief Complaint: Recheck/Abnormal Lab/Rx Clinical Impression: HTN (hypertension) Patient Disposition: Home, Self-Care Time of Disposition Decision: 18:41 Condition: Good Mode of Transportation: Private Vehicle Prescriptions / Home Meds: No Action atorvastatin 40 mg tablet 40 mg PO DAILY flecainide 100 mg tablet 100 mg PO Q12H metoprolol tartrate 100 mg tablet 100 mg PO Q12H aspirin [Adult Aspirin Regimen] 81 mg tablet,delayed release (DR/EC) 81 mg PO DAILY prednisone 10 mg tablet See Rx Instructions .ROUTE .COMPLEX Qty: 30 0RF Rx Instructions: 4 by mouth daily for three days then 3 by mouth daily for three days then 2 by mouth daily for three days then 1 by mouth daily for three days methocarbamol 750 mg tablet 750 mg PO Q8H Qty: 20 0RF tramadol 50 mg tablet 50 mg PO Q6H PRN (Reason: pain) 5 Days Qty: 20 0RF Print Language: Tongan Instructions: Hypertension (ED) Referrals: THOMAS PIÑA [Primary Care Provider, Family Practice] - 1 week Discharge Date/Time: 01/18/25 18:51
[2025-01-18 18:49] VITALS: BP 162/90
--- NOTE | 2025-01-21 14:49 | SWNOTE1 ---
GOVIDN received a call from pt's , Jese. He explained to SW that pt was here on 01/16 for high blood pressure and was released and informed to follow up with PCP. She did follow up with PCP and he sent her back to the ED and she came on 01/18. He voiced that the ED doctor told them to not rely on electronic machine and have to do it manually. She was then discharged and her BP was still a little high at this time. Jese would like to speak with someone in regards to pt's ED visits, GOVIND recommended Kaylen Lozano, Director of ED.
--- NOTE | 2025-01-21 14:51 | SWNOTE1 ---
SW sent email to Kaylen Lozano with this information.
== END 2025-01-18 18:51 | disposition home or self-care (01) ==
PROVIDERS: Emergency Provider Emergency Medicine; PCP Family Medicine
DX: I10 Essential (primary) hypertension (principal); Z79.899 Other long term (current) drug therapy
CPT/HCPCS: 36415; 80053; 84484; 85025; 93005; 99284